=== PATIENT | male | born 1960 | race Caucasian/White ===

== ENCOUNTER 2016-06-02 12:27 | Inpatient (IN) | payer OTHER ==
[2016-06-02 12:40] VITALS: BMI 36.6
--- NOTE | 2016-06-02 13:40 | PDOC ---
History of Present Illness - General Chief Complaint: Wound Infection Stated Complaint: CELLULITIS, LEG PAIN Time Seen by Provider: 06/02/16 13:40 History Source: Patient, Old Records Exam Limitations: No Limitations - History of Present Illness Initial Comments: 06/02/16 13:40 CHIEF COMPLAINT: "Cellulitis" HISTORY OF PRESENT ILLNESS: This is a 56 year old male with no known medical problems who presents to the ED for evaluation of "cellulitis". He reports that he had a rash secondary to poison amanda several months ago. This blistered, and he scratched the area, which then became infected. He was seen at an urgent care and prescribed Clindamycin, which he took from 05/17-05/27 as prescribed. He has been attempting to treat himself by applying apple cider vinegar and baking soda, but is not improving. He presents today with worsening LE pain, redness, and swelling. He denies fevers/chills or any other systemic symptoms. He denies chest pain or shortness of breath. V/s on arrival are notable for P 113, BP 197/99, and SpO2 93% on RA. Patient refuses rectal temp. PCP is Dr. Diane REVIEW OF SYSTEMS: GENERAL/CONSTITUTIONAL: No fever or chills. No weakness. No weight change. HEAD, EYES, EARS, NOSE AND THROAT: No change in vision. No ear pain or discharge. No sore throat. CARDIOVASCULAR: No chest pain or palpitations. RESPIRATORY: No cough, wheezing, or shortness of breath. GASTROINTESTINAL: No nausea, vomiting, diarrhea or constipation. GENITOURINARY: No dysuria, frequency, or change in urination. MUSCULOSKELETAL: No joint or muscle swelling or pain. No neck or back pain. SKIN: See HPI. NEUROLOGIC: No headache, vertigo, loss of consciousness, or loss of sensation. PSYCHIATRIC: No depression or anxiety. ENDOCRINE: No increased thirst. No abnormal weight change. HEMATOLOGIC/LYMPHATIC: No anemia, easy bleeding, or history of blood clots. ALLERGIC/IMMUNOLOGIC: No hives or skin allergy. No latex allergy. PHYSICAL EXAM: GENERAL: The patient is awake, alert, and fully oriented, in no acute distress. ENT: Pupils equal, round and reactive to light, extraocular movements intact, sclera anicteric, conjunctiva clear. Neck supple. LUNGS: Clear to auscultation bilaterally. Normal excursion. No respiratory distress or use of accessory muscles. CV: Irregular rhythm, tachycardic, S1/S2, no MRG. Cap refill < 2 sec. ABDOMEN: Soft, non-distended, non-tender. EXTREMITIES: Normal range of motion. Tense LE edema bilaterally, weeping. NEUROLOGICAL: Normal speech, normal gait. CN II-XII grossly intact. PSYCH: Normal mood, normal affect. SKIN: LLE: erythema from mid foot to just below knee. 4 x 3 cm and 3 x 1.5cm left medial calf ulcerations with purulent yellow discharge. 3 x 4cm blister to left lateral calf. Large, open area to posterior calf, weeping. RLW: 5 x 6 cm ulceration to right medial calf with large amount of yellow purulent discharge. Past History - Past Medical History Allergies/Adverse Reactions: Allergies Allergy/AdvReac Type Severity Reaction Status Date / Time No Known Allergies Allergy Verified 06/02/16 12:34 Home Medications: Ambulatory Orders Colchicine [Colcrys] 0 mg PO ASDIR 06/02/16 Other medical history: DENIES. - Psycho/Social/Smoking Cessation Hx Suicidal Ideation: No Smoking History: Former smoker Have you smoked in the past 12 months: No Information on smoking cessation initiated: No *Physical Exam - Vital Signs Last Vital Signs Temp Pulse Resp BP Pulse Ox 98.2 F 113 H 17 197/99 93 L 06/02/16 12:34 06/02/16 12:34 06/02/16 12:34 06/02/16 12:34 06/02/16 12:34 Heart Score/ECG Review - Tebbetts Comment: 06/02/16 14:45 Atrial fibrillation with RVR at 117 bpm. This is a new diagnosis. With no known PMH, [id number] is 0, perhaps 1 given HTN, still no clear indication for AC at this time. Will re-asses need for rate control after IVF ED Treatment Course - LABORATORY CBC & Chemistry Diagram: 06/02/16 14:55 06/02/16 14:10 Medical Decision Making - Medical Decision Making 06/02/16 15:17 A/P: 56 year old male with purulent cellulitis of the lower extremities, failed outpatient therapy. 1. EKG: new onset atrial fibrillation 2. Obtain CXR (hypoxia) 3. Obtain sepsis labs, win-culture 4. Vancomycin/Ceftriaxone for cellulitis 5. Xrays LEs to evaluate for osteomyelitis 6. Anticipate admission 06/02/16 15:20 WBC within normal limits at 7.9 Mild thrombocytopenia at 129 Cr 2.0, no prior history renal insufficiency *DC/Admit/Observation/Transfer Diagnosis at time of Disposition: New onset atrial fibrillation, Cellulitis of both lower extremities, Acute kidney injury, Hypertension Sepsis Qualifiers: Sepsis type: sepsis due to unspecified organism Qualified Code(s): A41.9 - Sepsis, unspecified organism - Discharge Dispostion Admit: Yes - Referrals
[2016-06-02] MEDS ORDERED: SODIUM CHLORIDE 1,000 ML IV STA (14:07)
[2016-06-02] MEDS ORDERED: VANCOMYCIN 1,250 MG in DEXTROSE 5%-WATER - 250 ML IVPB ONE (14:32)
[2016-06-02] MEDS ORDERED: CEFTRIAXONE 1 GM in DEXTROSE 5%-WATER - 50 ML IVPB ONE (14:32)
[2016-06-02 14:37] LABS: INR 1.2 (0.82-1.09); PROTHROMBIN TIME (PATIENT) 13.3 SEC (9.98-11.88)
[2016-06-02 14:40] LABS: ACTIVATED PTT 30.6 SECONDS (26.9-34.4)
[2016-06-02 14:51] LABS: ALBUMIN 3.9 g/dl (3.4-5.0); BILIRUBIN,TOTAL 1.5 mg/dL (0.2-1.0); CALCIUM 9.1 mg/dL (8.5-10.1); TOT PROT 6.8 g/dl (6.4-8.2)
[2016-06-02 15:05] LABS: BASOPHIL 0.4 % (0-2.0); EOSINOPHIL 3.1 % (0-4.5); MCH 29.6 pg (25.7-33.7); MCHC 33.5 g/dl (32.0-35.9); MEAN CELL VOLUME 88.5 fl (80-96); MEAN PLT VOLUME 7.4 fl (7.5-11.1); NEUTROPHILS 77.3 % (42.8-82.8); PLATELET COUNT 129 K/MM3 (134-434); RDW 18.2 % (11.9-15.9); WHITE BLOOD COUNT 7.9 K/mm3 (4.0-10.0)
[2016-06-02] MEDS ORDERED: VANCOMYCIN 1 GRAM (PRE-DOCKED) 250 ML IVPB ONE (16:38)
[2016-06-02] MEDS ORDERED: CEFTRIAXONE 50 ML ONE (16:38)
[2016-06-02] MEDS ORDERED: ACETAMINOPHEN 325 MG TABLET (FP) PO PRN (18:38)
[2016-06-02] MEDS ORDERED: SODIUM CHLORIDE 0.45% 1,000 ML IV SCH (18:45)
--- NOTE | 2016-06-02 18:51 | HP ---
Admitting History and Physical - Admission History of Present Illness: 56 year old man who does not follow with a PCP presents complaining of B/L lower extremity swelling/pain/erythema for the past week. Pt states that he has had issues with infections in his legs previously from poison amanda. 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 He initially tried treating his legs with neosporin, apple cider vinegar , and backing soda with no improvement so he saw physician at a walk in clinic who prescribed clindamycin. Pt states that he took it for 3 days with no improvement and was convinced by his family to come to the ED. He denies fever or chills. - Smoking History Smoking history: Former smoker Have you smoked in the past 12 months: No Home Medications - Allergies Allergies/Adverse Reactions: Allergies Allergy/AdvReac Type Severity Reaction Status Date / Time No Known Allergies Allergy Verified 06/02/16 12:34 - Home Medications Home Medications: Ambulatory Orders Colchicine [Colcrys] 0 mg PO ASDIR 06/02/16 Family Disease History - Family Disease History Family History: Unable to Obtain Review of Systems - Review of Systems Constitutional: denies: No Symptoms, Chills, Diaphoresis, Fever, Lethargy, Loss of Appetite, Malaise, Night Sweats, Unintentional Wgt. Loss, Weakness, Other Eyes: denies: No Symptoms, Blind Spots, Blurred Vision, Double Vision, Eye Pain , Floaters, Photophobia, Recent Change in Vision, Other HENT: denies: No Symptoms, Difficult Swallowing, Ear Discharge, Ear Pain, Epistaxis, Gingival Bleeding, Hearing Loss, Mouth Swelling, Nasal Congestion, Ocular Prosthesis, Throat Pain, Toothache, Ringing in Ears, Other Neck: denies: No Symptoms, Decreased ROM, Lumps, Pain on Movement, Stiffness, Swollen Glands, Tenderness, Other Cardiovascular: denies: No Symptoms, Chest Pain, Edema, Palpitations, Shortness of Breath, Other Respiratory: denies: No Symptoms, Cough, Exercise Intolerance, Hemoptysis, Orthopnea, PND, Snoring, SOB, SOB on Exertion, Wheezing, Other Gastrointestinal: denies: No Symptoms, Abdominal Pain, Bloating, Constipation, Diarrhea, Dysphagia, Indigestion, Melena, Nausea, Rectal Bleeding, Vomiting, Vomiting Blood, Other Genitourinary: denies: No Symptoms, Burning, Discharge, Dysuria, Flank Pain, Frequency, Hematuria, Incontinence, Lesions, Menses, Pain, Testicular Mass, Testicular Pain, Testicular Swelling, Urgency, Vaginal Bleeding, Other Breasts: denies: No Symptoms Reported, See HPI, Breast Implants, Discharge from Nipple, Lumps, Pain, Skin Changes, Other Musculoskeletal: denies: No Symptoms, Back Pain, Crepitus, Decreased ROM, Extremity Pain, Joint Pain, Joint Swelling, Muscle Pain, Muscle Cramps, Muscle Weakness, Other Integumentary: reports: Change in Color, Erythema, Lesions, Other (swelling) Neurological: denies: No Symptoms, Change in LOC, Change in Speech, Confusion, Dizziness, Headache, Incoordination, Numbness, Parasthesia, Pre-Existing Deficit , Seizure, Syncope, Tremors, Unsteady Gait, Weakness, Other Endocrine: denies: No Symptoms, Excessive Sweating, Flushing, Increased Hunger, Increased Thirst, Intolerance to Cold, Intolerance to Heat, Unexplained Weight Gain, Unexplained Weight Loss, Other Hematology/Lymphatic: denies: No Symptoms, Easily Bruised, Excessive Bleeding, Swollen Glands, Other Psychiatric: denies: No Symptoms, Altered Sleep Pattern, Anxiety, Depression, Hallucinations, Panic, Paranoia, Suicidal, Other Physical Examination Vital Signs: Vital Signs Temperature 98.2 F 06/02/16 12:34 Pulse Rate 110 H 06/02/16 13:51 Respiratory Rate 20 06/02/16 13:51 Blood Pressure 103/71 06/02/16 13:51 O2 Sat by Pulse Oximetry (%) 93 L 06/02/16 13:51 Constitutional: Yes: Well Nourished, No Distress, Calm Eyes: Yes: WNL, Conjunctiva Clear, EOM Intact HENT: Yes: WNL, Atraumatic, Normocephalic Neck: Yes: WNL, Supple, Trachea Midline Cardiovascular: Yes: WNL, Regular Rate and Rhythm Respiratory: Yes: WNL, Regular, CTA Bilaterally Gastrointestinal: Yes: WNL, Normal Bowel Sounds Musculoskeletal: Yes: WNL Extremities: Yes: Erythema, Other (skin excoriations with granulation tissue and chronic venous stasis skin changes) Edema: No Edema: LLE: 1+, RLE: 1+ Integumentary: Yes: WNL Neurological: Yes: WNL, Alert, Oriented ...Motor Strength: WNL Psychiatric: Yes: WNL Labs: CBC, BMP 06/02/16 14:55 06/02/16 14:10 Assessment/Plan 56 year old man admitted for failed outpatient therapy for B/L lower extremity cellulitis Cellulitis -treated with vanc/ceftriaxone in ED; agree with this therapy -follow up ID consult for vancomycin approval -follow up cultures New onset Afib -start carvedilol for rate control given concurrent HTN -follow up 2D echo -follow up TSH -telemetry monitoring -follow up cardiology consult HTN -was elevated to 190's on initial presentation -came down to 100's without intervention -trend for now Acute Kidney Injury -pt was taking NSAID's daily for the past week with decreased water intake (was drinking more juices of late) -fluid challange with 1/2 NS -trend creat Visit type - Emergency Visit Emergency Visit: Yes ED Registration Date: 06/02/16 Care time: The patient presented to the Emergency Department on the above date and was hospitalized for further evaluation of their emergent condition. - New Patient This patient is new to me today: Yes Date on this admission: 06/03/16 - Critical Care Critical Care patient: No
[2016-06-02] MEDS ORDERED: VANCOMYCIN 1 GRAM (PRE-DOCKED) 250 ML IVPB SCH (21:30)
[2016-06-03] MEDS ORDERED: dilTIAZem HCL 50 MG/10 ML - 10 ML VIAL IVPUSH PRN (00:04)
[2016-06-03] MEDS ORDERED: ALPRAZolam 0.25 MG TABLET PO ONE (00:06)
[2016-06-03] MEDS: amLODIPine BESYLATE 5 MG TABLET (FP) PO SCH ×2 (00:56→09:53)
[2016-06-03] MEDS: HEPARIN NA (PORCINE) 5,000 UNITS/ML 1ML VIAL SQ SCH ×2 (00:56→06:56)
[2016-06-03 07:47] LABS: BASOPHIL 0.8 % (0-2.0); EOSINOPHIL 3.1 % (0-4.5); MCH 29.7 pg (25.7-33.7); MCHC 33.6 g/dl (32.0-35.9); MEAN CELL VOLUME 88.4 fl (80-96); MEAN PLT VOLUME 7.6 fl (7.5-11.1); NEUTROPHILS 72.4 % (42.8-82.8); PLATELET COUNT 120 K/MM3 (134-434); RDW 18.4 % (11.9-15.9); WHITE BLOOD COUNT 7.1 K/mm3 (4.0-10.0)
[2016-06-03 08:23] LABS: CALCIUM 8.8 mg/dL (8.5-10.1); MAGNESIUM 2.4 mg/dL (1.8-2.4); PHOSPHOROUS 4.1 mg/dL (2.5-4.9)
--- NOTE | 2016-06-03 08:24 | PN ---
Progress Note, Physician - Current Medication List Current Medications: Active Medications Acetaminophen (Tylenol -) 650 mg PO Q4H PRN PRN Reason: FEVER OR PAIN Acetaminophen/Codeine Phosphate (Tylenol # 3 -) 1 tab PO Q4H PRN PRN Reason: FEVER OR PAIN Amlodipine Besylate (Norvasc -) 5 mg PO DAILY [facility] Last Admin: 06/03/16 00:56 Dose: 5 mg Carvedilol (Coreg -) 6.25 mg PO BID [facility] Ceftriaxone Sodium (Rocephin 2gm Ivpb (Pre-Docked)) 2 gm IVPB DAILY [facility] Diltiazem HCl (Cardizem Injection -) 10 mg IVPUSH Q4H PRN PRN Reason: TACHYCARDIA Heparin Sodium (Porcine) (Heparin -) 5,000 unit SQ TID [facility] Last Admin: 06/03/16 06:56 Dose: 5,000 unit Vancomycin HCl (Vancomycin (Pre-Docked)) 250 mls @ 200 mls/hr IVPB Q24H [facility] - Objective Vital Signs: Vital Signs Temperature 97.4 F L 06/03/16 02:00 Pulse Rate 109 H 06/03/16 06:00 Respiratory Rate 20 06/03/16 06:00 Blood Pressure 174/111 06/03/16 06:00 O2 Sat by Pulse Oximetry (%) 93 L 06/03/16 02:38 Constitutional: Yes: Well Nourished, No Distress, Calm Eyes: Yes: WNL, Conjunctiva Clear HENT: Yes: WNL, Atraumatic, Normocephalic Neck: Yes: WNL, Supple, Trachea Midline Cardiovascular: Yes: WNL, Regular Rate and Rhythm Respiratory: Yes: WNL, Regular, CTA Bilaterally Gastrointestinal: Yes: WNL, Normal Bowel Sounds Musculoskeletal: Yes: WNL Extremities: Yes: Erythema Edema: Yes Edema: LLE: 1+, RLE: 1+ Integumentary: Yes: Venous Stasis Changes Neurological: Yes: WNL, Alert, Oriented ...Motor Strength: WNL Psychiatric: Yes: WNL Labs: CBC, BMP 06/03/16 05:50 INR, PTT INR 1.20 (0.82-1.09) H 06/02/16 14:10 Impression/Plan Impression/Plan: 56 year old man admitted for failed outpatient therapy for B/L lower extremity cellulitis Cellulitis -treated with vanc/ceftriaxone in ED; agree with this therapy -follow up ID consult for vancomycin approval -follow up cultures New onset Afib -start carvedilol for rate control given concurrent HTN -follow up 2D echo -follow up TSH -telemetry monitoring -follow up cardiology consult HTN -was elevated to 190's on initial presentation -again elevated to 200's -start carvedilol Acute Kidney Injury -pt was taking NSAID's daily for the past week with decreased water intake (was drinking more juices of late) -fluid challange with 1/2 NS -trend creat Visit type - Emergency Visit Emergency Visit: Yes ED Registration Date: 06/02/16 Care time: The patient presented to the Emergency Department on the above date and was hospitalized for further evaluation of their emergent condition. - New Patient This patient is new to me today: Yes Date on this admission: 06/03/16 - Critical Care Critical Care patient: No
--- NOTE | 2016-06-03 08:24 | CONSULT ---
Consult Consult Specialty:: cardio Referred by:: hospitalist Reason for Consultation:: hypertensive urgency - History of Present Illness Chief Complaint: leg swelling History of Present Illness: 56 year old man with on PMD f/u here with leg swelling, wounds, redness. has had leg lesions/infection in past that he self-treats at home. this time he tried same local tx's but it progressed, and developed localized lesions, redness up almost to knees so came in for tx. denies any sob or orthopnea. denies cp. denies palpitations. he denies etoh abuse--1-2 beers once on weekends, heavier years ago. no cigs or drugs no known PMH specifically denies CVA/TIA, GIB/PUD/other GI pathology FH: no known CAD - Alcohol/Substance Use Hx Alcohol Use: No - Smoking History Smoking history: Former smoker Have you smoked in the past 12 months: No Home Medications - Allergies Allergies/Adverse Reactions: Allergies Allergy/AdvReac Type Severity Reaction Status Date / Time No Known Allergies Allergy Verified 06/02/16 12:34 - Home Medications Home Medications: Ambulatory Orders Colchicine [Colcrys] 0 mg PO ASDIR 06/02/16 Family Disease History - Family Disease History Family History: Denies (no CAD) Review of Systems - Review of Systems Constitutional: denies: Chills, Fever Eyes: denies: Eye Pain HENT: denies: Nasal Congestion Neck: denies: Stiffness Cardiovascular: denies: Palpitations Respiratory: denies: Orthopnea, PND Gastrointestinal: denies: Diarrhea, Rectal Bleeding Genitourinary: denies: Burning, Hematuria Musculoskeletal: denies: Muscle Pain Integumentary: denies: Rash Neurological: denies: Numbness, Seizure, Syncope Endocrine: denies: Excessive Sweating Hematology/Lymphatic: denies: Excessive Bleeding Vital Signs: Vital Signs Temperature 97.4 F L 06/03/16 02:00 Pulse Rate 109 H 06/03/16 06:00 Respiratory Rate 20 06/03/16 06:00 Blood Pressure 174/111 06/03/16 06:00 O2 Sat by Pulse Oximetry (%) 93 L 06/03/16 02:38 Constitutional: Yes: No Distress, Obese Eyes: No: Sclera Icterus HENT: No: Nasal Congestion Neck: No: Decreased ROM Respiratory: Yes: CTA Bilaterally. No: Accessory Muscle Use, Rales, Wheezes Gastrointestinal: Yes: Normal Bowel Sounds. No: Distention, Hepatomegaly, Palpable Mass, Tenderness Cardiovascular: Yes: Pulse Irregular JVD: Yes Carotid Bruit: No PMI: Non-Displaced Heart Sounds: Yes: S1, S2. No: Gallop Murmur: No: Systolic Murmur, Diastolic Murmur Musculoskeletal: Yes: Other (No kyphosis) Extremities: No: Cold, Cyanosis Edema: Yes (nonpit pretib/erythema) Peripheral Pulses: 2+ Left Carotid, 2+ Right Carotid, 2+ Left Doralis Pedis, 2+ Right Dorsalis Pedis Integumentary: No: Jaundice Neurological: Yes: Alert, Oriented (x3) Psychiatric: No: Agitated - Other Data Labs, Other Data: CBC, BMP 06/03/16 05:50 INR, PTT INR 1.20 (0.82-1.09) H 06/02/16 14:10 Laboratory Tests 06/02/16 06/02/16 06/02/16 14:10 14:10 18:00 WBC Hgb Plt Count INR 1.20 H Sodium 146 H Potassium 4.5 Carbon Dioxide 26 BUN 36 H Creatinine 2.0 H Lactic Acid 0.937 AST 35 ALT 21 06/03/16 05:50 WBC 7.1 Hgb 11.9 Plt Count 120 L INR Sodium Potassium Carbon Dioxide BUN Creatinine Lactic Acid AST ALT ekg 06/02: afib (HR 117 bpm); nl axis/interv; no path q's; nonsp ST-T lateral leads (no old) telem: AF 100s-130s Imaging - Results Chest X-ray: Report Reviewed (enlarged heart, fluid in fissure, incr'd markings) , Image Reviewed Assessment/Plan HTN urgency: -noted to have bp up to syst 210, diast 116; -no PMD f/u, ? chronicity of hi bp in this pt -r/o renal dz contributing, incl nephrotic syndrome -carvedilol, amlodipine started here--160s/100s this am -cont same meds, observe bp trend AFib: -new dx (no prior MD f/u) -HRs mildly rapid--agree with BB; using carvedilol (better for BP) which is not great for HR control--incr to 12.5 bid -if rapid may need change amlodipine to diltiazem -CHADS-VASC 1 (hi BP), though needs A1c to r/o DM -PLTs mildly down, INR mildly up--needs further w/u -pt denies any h/o GIB or stomach ulcers/other GI pathology, H/H normal -will send stool guaiac for baseline, but for now will start UFH (reversible) and observe trend in PLTs/coags/H and H -check echo -TSH renal failure, ? chronic vs acute: -creat 2.0, no baseline -w/u per hospitalist +/- renal consult -ok for IVF for now--watch for signs of sob/hypoxia (? JVD on exam--as below) hypernatremia: -per hospitalist +/- renal consult thrombocytopenia, mild: -per hospitalist +/- heme consult coagulopathy: -INR 1.20 -low PLTs noted -denies etoh abuse -per hospitalist +/- heme consult LE edema, cellulitis: -abx per hospitalist -CXR reviewed--not convinced it shows evidence of pulm congestion -? JVD on exam, vs related to irreg carotid pulsations (afib) -BNP will not be helpful with his decr'd renal fxn -leg swelling improving with abx he says, not very edematous, no sob--defer lasix while observe creat trend
[2016-06-03] MEDS ORDERED: CARVEDILOL 6.25 MG TABLET (FP) PO SCH (08:30)
[2016-06-03] MEDS: ACETAMINOPHEN WITH CODEINE 300MG/30MG TABLET PO PRN (08:54)
--- NOTE | 2016-06-03 09:09 | PN ---
Progress Note (short form) - Note Progress Note: ID consult dictated imp/reccd purulent cellulitis- took a 10 day course of clindamycin 05/17- 05/27- finished it with some improvement then legs worsened- right leg is painful prior poison amanda venous stasis htn gill/ckd ceftaroline dopplers d/w Dr Self
[2016-06-03] MEDS ORDERED: amLODIPine BESYLATE 5 MG TABLET (FP) PO SCH (10:00)
[2016-06-03] MEDS ORDERED: CEFTAROLINE FOSAMIL ACETATE 600 MG in DEXTROSE 5%-WATER - 100 ML IVPB SCH (10:00)
[2016-06-03] MEDS ORDERED: CEFTRIAXONE 2 GM in DEXTROSE 5%-WATER - 100 ML IVPB SCH (10:00)
[2016-06-03] MEDS ORDERED: cefTRIAXone 2 GM/100 ML BAG (PRE-DOCKED) IVPB SCH (10:00)
[2016-06-03] MEDS: CEFTAROLINE FOSAMIL ACETATE 600 MG in DEXTROSE 5%-WATER - 250 ML IVPB SCH ×2 (10:38→21:50)
[2016-06-03] MEDS ORDERED: HEPARIN NA (PORCINE) 5,000 UNITS/ML 1ML VIAL IVPUSH PRN (11:05)
[2016-06-03] MEDS ORDERED: HEPARIN INFUSION - 500 ML IVPB ONE (11:31)
[2016-06-03] MEDS: HEPARIN - 25,000 UNIT in SODIUM CHLORIDE 495 ML IV SCH (11:34)
--- NOTE | 2016-06-03 15:52 | EKG ---
Test Reason : Blood Pressure : / mmHG Vent. Rate : 117 BPM Atrial Rate : 117 BPM P-R Int : 000 ms QRS Dur : 094 ms QT Int : 312 ms P-R-T Axes : 000 159 129 degrees QTc Int : 435 ms ATRIAL FIBRILLATION WITH RAPID VENTRICULAR RESPONSE RIGHT AXIS DEVIATION PULMONARY DISEASE PATTERN NONSPECIFIC T WAVE ABNORMALITY , PROBABLY DIGITALIS EFFECT ABNORMAL ECG NO PREVIOUS ECGS AVAILABLE Confirmed by ABBEY CONTRERAS MD ([id number]) on 06/03/2016 3:51:57 PM Referred By: Overread By: ABBEY CONTRERAS MD
[2016-06-03] MEDS ORDERED: VANCOMYCIN 1 GRAM (PRE-DOCKED) 250 ML IVPB SCH (17:00)
--- NOTE | 2016-06-03 21:39 | CONS ---
DATE OF CONSULTATION: DATE OF DICTATION: 06/03/2016 INFECTIOUS DISEASE CONSULTATION REQUESTING PHYSICIAN: Hospitalist service. CONSULTING PHYSICIAN: Mary Lou Eugene M.D. HISTORY OF PRESENT ILLNESS: This is a 56-year-old man who presented to the emergency room yesterday. He gives a history of having had poison amanda. 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 About 2 months ago he treated himself topically with neomycin and he had been trying to use some apple cider vinegar and baking soda to the lesions, and he presented with worsening pain and erythema especially of the left leg. He has recently completed a course of clindamycin which he took from the 8th to the 18th, which he completed. He reports some improvement with that, but no complete resolution. There is no history of any fevers or chills. He has no pets. He denies any scratches or insect bites. He states this all has been chronic and recurrent after the poison amanda episode. PAST MEDICAL HISTORY: Unremarkable. He has a history of gout, and he takes colchicine. He has no known drug allergies. FAMILY HISTORY: Noncontributory. 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 He lives with his family. He is a former smoker. There is no other illicit drug use. REVIEW OF SYSTEMS: Negative for fevers, chills, nausea, vomiting, diarrhea, or dysuria. PHYSICAL EXAMINATION: General: He is awake and alert. Vital signs: Temperature 98, pulse 109, blood pressure 169/102, respiratory rate 20, weight 185 pounds, O2 saturation is 93%. HEENT: Normocephalic. Eyes are anicteric. Neck: Supple. Lungs: Clear to auscultation. Heart: Regular rate and rhythm. Abdomen: Soft, nontender. Extremities: He has bilateral venous stasis with erythema and induration. He has some open lesions that in the emergency room were apparently draining purulent material. Currently the legs are somewhat dry. LABORATORY: Notable for a white count of 7.1, hemoglobin of 11.9, platelets of 120, INR is 1.2, BUN and creatinine are 34 and 2. Blood cultures are pending. X-rays of his feet are notable for degenerative changes, and chest x-ray reveals increased elevated right hemidiaphragm and a large heart. There is no infiltrate. IMPRESSION: 1. In summary, this is a 56-year-old man with bilateral cellulitis left greater than right with a purulent component, which has not responded well to outpatient clindamycin. Would suggest treating him with ceftaroline now which would cover him for methicillin resistant Staphylococcus aureus, Streptococcus, as well as some gram negative coverage, would culture the wound, if there is any drainage from the lesions would send a wound culture. 2. Renal insufficiency, hypertension, managed as per his primary service. If he has not had Dopplers of his legs, I would Doppler his legs as well, to rule out deep vein thrombosis. MARY LOU EUGENE M.D. [id number]
[2016-06-03] MEDS: CARVEDILOL 12.5 MG TABLET (FP) PO SCH (21:50)
[2016-06-04 08:08] LABS: EOSINOPHIL 4.2 % (0-4.5); MCH 30.2 pg (25.7-33.7); MCHC 33.8 g/dl (32.0-35.9); MEAN CELL VOLUME 89.4 fl (80-96); MEAN PLT VOLUME 7.7 fl (7.5-11.1); PLATELET COUNT 112 K/MM3 (134-434); RDW 19.2 % (11.9-15.9)
--- NOTE | 2016-06-04 08:20 | PN ---
Physical Exam: SUBJECTIVE: Patient seen and examined at bed side. reports erythema margin bellow the knee is moving down, swelling is improving. Reports pain is constant and want a percocet. denies, fevers, chills, N/v/D/ OBJECTIVE: Vital Signs Period Temp Pulse Resp BP Sys/Villarreal Pulse Ox Last 24 Hr 97.0 F-98.3 F 83-109 18-20 113-186/51-113 93-93 PHYSICAL EXAM: GENERAL: The patient is awake, alert, and fully oriented, in no acute distress. ENT: Pupils equal, round and reactive to light, extraocular movements intact, sclera anicteric, conjunctiva clear. Neck supple. LUNGS: Clear to auscultation bilaterally. Normal excursion. No respiratory distress or use of accessory muscles. CV: Irregular rhythm, tachycardic, S1/S2, no MRG. Cap refill < 2 sec. ABDOMEN: Soft, non-distended, non-tender. EXTREMITIES: Normal range of motion. Tense LE edema bilaterally, weeping. NEUROLOGICAL: Normal speech, normal gait. CN II-XII grossly intact. PSYCH: Normal mood, normal affect. SKIN: LLE: erythema clear demarcations from mid foot to just below knee decreased from yesterday. 4 x 3 cm and 3 x 1.5cm left medial calf ulcerations with purulent yellow discharge. 3 x 4cm blister to left lateral calf. Large, open area to posterior calf, weeping. RLW: 5 x 6 cm ulceration to right medial calf with large amount of yellow purulent discharge. Laboratory Results - last 24 hr 06/03/16 06/03/16 05:50 17:15 PTT (Actin FS) 51.2 H D Sodium 141 Potassium 3.6 Chloride 108 H Carbon Dioxide 28 Anion Gap 5 L BUN 34 H Creatinine 2.0 H Random Glucose 90 Calcium 8.8 Phosphorus 4.1 Magnesium 2.4 Active Medications Generic Name Dose Route Start Last Admin Trade Name Freq PRN Reason Stop Dose Admin Acetaminophen/Codeine Phosphate 1 tab 06/03/16 08:13 Tylenol # 3 - PO Q4H PRN FEVER OR PAIN Amlodipine Besylate 5 mg 06/03/16 00:15 06/03/16 09:53 Norvasc - PO 5 mg DAILY ASHLEY Administration Carvedilol 12.5 mg 06/03/16 22:00 06/03/16 21:50 Coreg - PO 12.5 mg BID ASHLEY Administration Diltiazem HCl 10 mg 06/03/16 00:04 Cardizem Injection - IVPUSH Q4H PRN TACHYCARDIA Heparin Sodium (Porcine) 1,000 unit 06/03/16 11:05 Heparin - IVPUSH PRN PRN Heparin Heparin Sodium (Porcine) 5,000 unit 06/03/16 11:05 06/03/16 11:36 Heparin - IVPUSH 5,000 unit PRN PRN Administration Heparin Ceftaroline Fosamil 600 mg/ 250 mls @ 200 mls/hr 06/03/16 10:00 06/03/16 21:50 Dextrose IVPB 200 mls/hr BID ASHLEY Administration Heparin Sodium (Porcine) 25, 500 mls @ 20 mls/hr 06/03/16 11:15 06/03/16 11:34 000 unit/ Sodium Chloride IV 20 mls/hr TITR ASHLEY Administration Protocol 1,000 UNIT/HR ASSESSMENT/PLAN: 56 year old man admitted for failed outpatient therapy for B/L lower extremity cellulitis LE Edema, acute Cellulitis, chronic venous stasis afebrile, no leukocytosis -Ceftaroline Fosamil 600 mg IVPB BID per ID day2 -No growth 24 hrs, follow up cultures -JVD on exam, vs related to irreg carotid pulsations (afib) -BNP will not be helpful with his decr'd renal fxn -defer lasix while observe creat trend: no sob, leg swelling and erythema improving with abx per patietn, not very edematous, New onset Afib -start carvedilol for rate control given concurrent HTN -2D echo tommorow -TSH wNL -telemetry monitoring -patient was started on heprin drip per Cardiology attending. (Anirudh vasc score 1, HbA1c 5.6) HTN urgency -was elevated to 190's on initial presentation -again elevated to 173/105 -r/o renal dz contributing, incl nephrotic syndrome -carvedilol, amlodipine started here--160s/100s this am -cont same meds, observe bp trend Acute Kidney Injury: need to attain Cr base line -pt was taking NSAID's daily for the past week with decreased water intake (was drinking more juices of late) -fluid challange with 1/2 NS -trend cr hypernatremia: thrombocytopenia, mild: -per hospitalist will monitor Visit type - Emergency Visit Emergency Visit: Yes ED Registration Date: 06/02/16 Care time: The patient presented to the Emergency Department on the above date and was hospitalized for further evaluation of their emergent condition. - New Patient This patient is new to me today: Yes Date on this admission: 06/02/16 - Critical Care Critical Care patient: No
[2016-06-04 08:34] LABS: LDL CHOLESTEROL (ONLY SJRH) 114 mg/dL (5-100)
[2016-06-04 09:08] LABS: CALCIUM 8.5 mg/dL (8.5-10.1); CREATININE 1.8 mg/dL (0.7-1.3)
[2016-06-04] MEDS: CARVEDILOL 12.5 MG TABLET (FP) PO SCH ×2 (09:14→22:57)
[2016-06-04] MEDS: ACETAMINOPHEN WITH CODEINE 300MG/30MG TABLET PO PRN (09:14)
[2016-06-04] MEDS: amLODIPine BESYLATE 10 MG TABLET (FP) PO SCH (09:14)
[2016-06-04 09:17] LABS: THYROID STIMULATING HORMONE 1.65 uIU/ml (0.358-3.74)
[2016-06-04] MEDS ORDERED: METOPROLOL SUCCINATE 50 MG TAB.SR.24H (FP) PO SCH (10:00)
[2016-06-04] MEDS: CEFTAROLINE FOSAMIL ACETATE 600 MG in DEXTROSE 5%-WATER - 250 ML IVPB SCH ×2 (11:04→22:58)
[2016-06-04] MEDS: HEPARIN - 25,000 UNIT in SODIUM CHLORIDE 495 ML IV SCH (11:29)
[2016-06-04] MEDS: HEPARIN NA (PORCINE) 5,000 UNITS/ML 1ML VIAL IVPUSH PRN (11:30)
[2016-06-04 11:36] LABS: CHOLESTEROL 164 mg/dL (50-200)
--- NOTE | 2016-06-04 11:43 | PN ---
Progress Note (short form) - Note Progress Note: continues to have pain in both his legs no fevers, thinks the erythema is improving Vital Signs Period Temp Pulse Resp BP Sys/Villarreal Pulse Ox Last 24 Hr 97.0 F-98.3 F 83-91 18-20 113-186/51-113 91-93 cor-[id number] lungs clear abd- soft,nt ext venous stasis, with erythema RLE greater then LLE, shallow ulcers bilaterally CBC, BMP 06/04/16 05:48 06/04/16 05:48 Microbiology 06/02/16 21:41 Wound Wound Culture - Preliminary Pending Organism 06/02/16 16:05 Blood - Peripheral Venous Blood Culture - Preliminary NO GROWTH OBTAINED AFTER 24 HOURS, INCUBATION TO CONTINUE FOR 4 DAYS. 06/02/16 14:30 Blood - Peripheral Venous Blood Culture - Preliminary NO GROWTH OBTAINED AFTER 24 HOURS, INCUBATION TO CONTINUE FOR 4 DAYS. a/p bilateral cellulitis venous stasis HTN afib gill continue ceftaroline f/u cultures
--- NOTE | 2016-06-04 11:43 | PN ---
Progress Note (short form) - Note Progress Note: s: no cp sob palps dizzy; c/o leg pain o: Vital Signs Period Temp Pulse Resp BP Sys/Villarreal Pulse Ox Last 24 Hr 97.0 F-98.3 F 83-91 18-20 113-186/51-113 91-93 Constitutional: Yes: No Distress, Obese Eyes: No: Sclera Icterus Respiratory: Yes: CTA Bilaterally. No: Accessory Muscle Use, Rales, Wheezes Cardiovascular: Yes: Pulse Irregular JVD: no Heart Sounds: Yes: S1, S2. No: Gallop Murmur: No: Systolic Murmur, Diastolic Murmur Extremities: No: Cold, Cyanosis Edema: Yes (nonpit pretib/erythema) Integumentary: No: Jaundice Neurological: Yes: Alert, Oriented (x3) Psychiatric: No: Agitated Current Medications Generic Name Dose Route Start Last Admin Trade Name Freq PRN Reason Stop Dose Admin Acetaminophen/Codeine Phosphate 1 tab 06/03/16 08:13 06/04/16 09:14 Tylenol # 3 - PO 1 tab Q4H PRN Administration FEVER OR PAIN Amlodipine Besylate 10 mg 06/04/16 10:00 06/04/16 09:14 Norvasc - PO 10 mg DAILY ASHLEY Administration Carvedilol 12.5 mg 06/03/16 22:00 06/04/16 09:14 Coreg - PO 12.5 mg BID ASHLEY Administration Diltiazem HCl 10 mg 06/03/16 00:04 Cardizem Injection - IVPUSH Q4H PRN TACHYCARDIA Heparin Sodium (Porcine) 1,000 unit 06/03/16 11:05 06/04/16 11:30 Heparin - IVPUSH 1,000 unit PRN PRN Administration Heparin Heparin Sodium (Porcine) 5,000 unit 06/03/16 11:05 06/03/16 11:36 Heparin - IVPUSH 5,000 unit PRN PRN Administration Heparin Ceftaroline Fosamil 600 mg/ 250 mls @ 200 mls/hr 06/03/16 10:00 06/04/16 11:04 Dextrose IVPB 200 mls/hr BID ASHLEY Administration Heparin Sodium (Porcine) 25, 500 mls @ 20 mls/hr 06/03/16 11:15 06/04/16 11:29 000 unit/ Sodium Chloride IV 22 mls/hr TITR ASHLEY Administration Protocol 1,000 UNIT/HR CBC, BMP 06/04/16 05:48 06/04/16 05:48 ekg 06/02: afib (HR 117 bpm); nl axis/interv; no path q's; nonsp ST-T lateral leads (no old) telem: AFib, rate controlled Imaging - Results Chest X-ray: Report Reviewed (enlarged heart, fluid in fissure, incr'd markings) , Image Reviewed Assessment/Plan HTN urgency: -noted to have bp up to syst 210, diast 116; -no PMD f/u, ? chronicity of hi bp in this pt -r/o renal dz contributing, incl nephrotic syndrome -carvedilol, amlodipine started here--160s/100s, bp still high today, will increase norvasc to 10 mg AFib: -new dx (no prior MD f/u) -HR controlled on coreg so far, cont tele for now -CHADS-VASC 1 (htn), so has indication for AC, currently on hep gtt, can change to NOAC or coumadin -tsh wnl -check echo renal failure, ? chronic vs acute: -creat near 2, no baseline -w/u per hospitalist +/- renal consult LE edema, cellulitis: -abx per hospitalist -CXR reviewed--not convinced it shows evidence of pulm congestion -BNP will not be helpful with his decr'd renal fxn -leg swelling improving with abx he says, not very edematous, no sob--defer lasix while observe creat trend
[2016-06-04 12:25] LABS: INR 1.25 (0.82-1.09); PROTHROMBIN TIME (PATIENT) 13.8 SEC (9.98-11.88)
[2016-06-04] MEDS ORDERED: PT OWN MED DRAWER 7, Y5N ONE (22:26)
--- NOTE | 2016-06-05 07:36 | PN ---
Physical Exam: SUBJECTIVE: Patient seen and examined at bed side. patient reports swelling, pain, erythema, ulcers has been improving and attributes it to antibiotics. Reports pain is constant and want a percocet and understands he will not be given percocets on discharge. . Denies, fevers, chills, N/V/D/C, CP, palpitations, SOB. OBJECTIVE: Vital Signs Period Temp Pulse Resp BP Sys/Villarreal Pulse Ox Last 24 Hr 97.3 F-98.3 F 74-91 18-20 130-173/72-105 90-91 PHYSICAL EXAM: GENERAL: The patient is awake, alert, and fully oriented, in no acute distress. sitting comfortably. ENT: Pupils equal, round and reactive to light, extraocular movements intact, sclera anicteric, conjunctiva clear. Neck supple. LUNGS: Clear to auscultation bilaterally. Normal excursion. No respiratory distress or use of accessory muscles. CV: Irregular rhythm, tachycardic, S1/S2, no MRG. Cap refill < 2 sec. ABDOMEN: Soft, non-distended, non-tender. EXTREMITIES: Normal range of motion. Tense LE edema bilaterally, weeping. NEUROLOGICAL: Normal speech, normal gait. CN II-XII grossly intact. PSYCH: Normal mood, normal affect. SKIN: LLE: multiple calf ulcers,weeping, erythema clear demarcations from mid foot to just below knee again decreased from yesterday. 4 x 3 cm and 3 x 1.5cm left medial calf ulcerations with purulent yellow discharge. 3 x 4cm blister to left lateral calf. Large, open area to posterior calf, weeping. RLW: 5 x 6 cm ulceration to right medial calf with large amount of yellow purulent discharge.1+ pitting edema, pulses weak but intact B/L Laboratory Results - last 24 hr 06/04/16 06/04/16 06/04/16 05:48 05:48 05:48 WBC 7.0 RBC 3.91 L Hgb 11.8 Hct 34.9 L MCV 89.4 MCHC 33.8 RDW 19.2 H Plt Count 112 L MPV 7.7 Neutrophils % 73.0 Lymphocytes % 11.9 Monocytes % 9.9 Eosinophils % 4.2 Basophils % 1.0 INR PTT (Actin FS) Sodium 145 Potassium 3.6 Chloride 107 Carbon Dioxide 30 Anion Gap 8 BUN 28 H Creatinine 1.8 H Random Glucose 96 Hemoglobin A1c % Calcium 8.5 Triglycerides 70 Cholesterol 164 Total LDL Cholesterol Cancelled HDL Cholesterol 53 TSH 1.65 06/04/16 06/04/16 06/04/16 05:48 09:30 10:00 WBC RBC Hgb Hct MCV MCHC RDW Plt Count MPV Neutrophils % Lymphocytes % Monocytes % Eosinophils % Basophils % INR 1.25 H PTT (Actin FS) 45.2 H Sodium Potassium Chloride Carbon Dioxide Anion Gap BUN Creatinine Random Glucose Hemoglobin A1c % 5.2 Calcium Triglycerides Cholesterol Total LDL Cholesterol HDL Cholesterol TSH 06/04/16 18:00 WBC RBC Hgb Hct MCV MCHC RDW Plt Count MPV Neutrophils % Lymphocytes % Monocytes % Eosinophils % Basophils % INR PTT (Actin FS) 42.6 H Sodium Potassium Chloride Carbon Dioxide Anion Gap BUN Creatinine Random Glucose Hemoglobin A1c % Calcium Triglycerides Cholesterol Total LDL Cholesterol HDL Cholesterol TSH Active Medications Generic Name Dose Route Start Last Admin Trade Name Freq PRN Reason Stop Dose Admin Acetaminophen/Codeine Phosphate 1 tab 06/03/16 08:13 06/04/16 09:14 Tylenol # 3 - PO 1 tab Q4H PRN Administration FEVER OR PAIN Amlodipine Besylate 10 mg 06/04/16 10:00 06/04/16 09:14 Norvasc - PO 10 mg DAILY ASHLEY Administration Carvedilol 12.5 mg 06/03/16 22:00 06/04/16 22:57 Coreg - PO 12.5 mg BID ASHLEY Administration Diltiazem HCl 10 mg 06/03/16 00:04 Cardizem Injection - IVPUSH Q4H PRN TACHYCARDIA Heparin Sodium (Porcine) 1,000 unit 06/03/16 11:05 06/04/16 11:30 Heparin - IVPUSH 1,000 unit PRN PRN Administration Heparin Heparin Sodium (Porcine) 5,000 unit 06/03/16 11:05 06/03/16 11:36 Heparin - IVPUSH 5,000 unit PRN PRN Administration Heparin Ceftaroline Fosamil 600 mg/ 250 mls @ 200 mls/hr 06/03/16 10:00 06/04/16 22:58 Dextrose IVPB 200 mls/hr BID ASHLEY Administration Heparin Sodium (Porcine) 25, 500 mls @ 20 mls/hr 06/03/16 11:15 12/26/16 21:00 000 unit/ Sodium Chloride IV 1,200 unit/hr TITR ASHLEY Titration Protocol 1,000 UNIT/HR ekg 06/02: afib (HR 117 bpm); nl axis/interv; no path q's; nonsp ST-T lateral leads (no old) Telem: AFib, rate controlled Chest X-ray: Report Reviewed (enlarged heart, fluid in fissure, incr'd markings) , Image Reviewed ASSESSMENT/PLAN: 56 year old man admitted for failed outpatient therapy for B/L lower extremity cellulitis LE Edema, acute Cellulitis, super imposed on chronic venous stasis afebrile, no leukocytosis,wound Cx + with pending organism -Ceftaroline Fosamil 600 mg IVPB BID per ID day 4. -No growth 24 hrs, follow up cultures -JVD on exam, vs related to irreg carotid pulsations (afib) -BNP will not be helpful with his decr'd renal fxn -defer lasix while observe creat trend: no sob, leg swelling and erythema improving with abx per patient, not very edematous, -will start percocets prn for pain control. -vascular evaluation as outpatient. -await final c&s New onset Afib: rate controlled on carvedilol -2D echo reading pending -TSH wNL -telemetry monitoring -patient was started on heprin drip per Cardiology attending. (Anirudh vasc score 1, HbA1c 5.6). discussed with patient risk and benfits of treatment options. patient needs time to think and make an informed decision on AC. HTN urgency -was elevated to 190's on initial presentation -again elevated to 173/105 -r/o renal dz contributing, incl nephrotic syndrome -carvedilol, amlodipine started here--160s/100s this am -cont same meds, observe bp trend Acute Kidney Injury: need to attain Cr base line -pt was taking NSAID's daily for the past week with decreased water intake (was drinking more juices of late) -fluid challange with 1/2 NS -trend cr renal failure, ? chronic vs acute: -creat near 2, no baseline: call PCP to acquire about base line kidney function -w/u per hospitalist +/- renal consult. No significant improvement IVF. thrombocytopenia, mild: -per hospitalist will monitor FEN monitor and replenish electrolyte as needed oral hydration sodium controlled diet Visit type - Emergency Visit Emergency Visit: Yes ED Registration Date: 06/02/16 Care time: The patient presented to the Emergency Department on the above date and was hospitalized for further evaluation of their emergent condition. - New Patient This patient is new to me today: No - Critical Care Critical Care patient: No
[2016-06-05 07:42] LABS: MCH 29.7 pg (25.7-33.7); MCHC 33.2 g/dl (32.0-35.9); MEAN CELL VOLUME 89.5 fl (80-96); MEAN PLT VOLUME 7.8 fl (7.5-11.1); PLATELET COUNT 112 K/MM3 (134-434); WHITE BLOOD COUNT 7.2 K/mm3 (4.0-10.0)
[2016-06-05] MEDS ORDERED: PT OWN MED DRAWER 7, Y5N ONE ×2 (08:39→20:06)
[2016-06-05] MEDS: amLODIPine BESYLATE 10 MG TABLET (FP) PO SCH (09:42)
[2016-06-05] MEDS: CARVEDILOL 12.5 MG TABLET (FP) PO SCH ×2 (09:42→21:51)
[2016-06-05] MEDS: HEPARIN NA (PORCINE) 5,000 UNITS/ML 1ML VIAL IVPUSH PRN (09:53)
[2016-06-05] MEDS: CEFTAROLINE FOSAMIL ACETATE 600 MG in DEXTROSE 5%-WATER - 250 ML IVPB SCH (09:53)
[2016-06-05] MEDS: HEPARIN - 25,000 UNIT in SODIUM CHLORIDE 495 ML IV SCH ×2 (09:54→14:57)
[2016-06-05 10:42] LABS: CALCIUM 8.8 mg/dL (8.5-10.1); CREATININE 2.2 mg/dL (0.7-1.3)
--- NOTE | 2016-06-05 12:29 | PN ---
Progress Note, Physician History of Present Illness: Awake, alert No c/o leg pain reports bilateral leg swelling and erythema improved no fever/ chills - Current Medication List Current Medications: Active Medications Acetaminophen/Codeine Phosphate (Tylenol # 3 -) 1 tab PO Q4H PRN PRN Reason: FEVER OR PAIN Last Admin: 06/04/16 09:14 Dose: 1 tab Amlodipine Besylate (Norvasc -) 10 mg PO DAILY ASHLEY Last Admin: 06/05/16 09:42 Dose: 10 mg Carvedilol (Coreg -) 12.5 mg PO BID ASHLEY Last Admin: 06/05/16 09:42 Dose: 12.5 mg Diltiazem HCl (Cardizem Injection -) 10 mg IVPUSH Q4H PRN PRN Reason: TACHYCARDIA Heparin Sodium (Porcine) (Heparin -) 1,000 unit IVPUSH PRN PRN PRN Reason: Heparin Last Admin: 06/05/16 09:53 Dose: 1,000 unit Heparin Sodium (Porcine) (Heparin -) 5,000 unit IVPUSH PRN PRN PRN Reason: Heparin Last Admin: 06/03/16 11:36 Dose: 5,000 unit Ceftaroline Fosamil 600 mg/ (Dextrose) 250 mls @ 200 mls/hr IVPB BID ASHLEY Last Admin: 06/05/16 09:53 Dose: 200 mls/hr Heparin Sodium (Porcine) 25, (000 unit/ Sodium Chloride) 500 mls @ 20 mls/hr IV TITR ASHLEY; 1,000 UNIT/HR PRN Reason: Protocol Last Admin: 06/05/16 09:54 Dose: 26 mls/hr - Objective Vital Signs: Vital Signs Temperature 97.3 F L 06/05/16 08:05 Pulse Rate 59 L 06/05/16 08:05 Respiratory Rate 20 06/05/16 08:09 Blood Pressure 152/76 06/05/16 08:05 O2 Sat by Pulse Oximetry (%) 90 L 06/04/16 21:00 Constitutional: Yes: No Distress Eyes: Yes: Conjunctiva Clear Cardiovascular: Yes: Regular Rate and Rhythm, S1, S2 Respiratory: Yes: CTA Bilaterally Gastrointestinal: Yes: Normal Bowel Sounds, Soft. No: Tenderness Extremities: Yes: Other (+ LE edema , erythema, superficial ulcers) Labs: CBC, BMP 06/05/16 05:35 06/05/16 09:30 INR, PTT INR 1.25 (0.82-1.09) H 06/04/16 09:30 Assessment/Plan Bilateral LE cellulitis Wound c/s mixed Substitute unasyn Local wound care
--- NOTE | 2016-06-05 13:19 | PN ---
Progress Note (short form) - Note Progress Note: CC: afib s: no cp sob palps dizzy; c/o leg pain o: Current Medications Acetaminophen/Codeine Phosphate (Tylenol # 3 -) 1 tab PO Q4H PRN PRN Reason: FEVER OR PAIN Last Admin: 06/04/16 09:14 Dose: 1 tab Amlodipine Besylate (Norvasc -) 10 mg PO DAILY [facility] Last Admin: 06/05/16 09:42 Dose: 10 mg Carvedilol (Coreg -) 12.5 mg PO BID [facility] Last Admin: 06/05/16 09:42 Dose: 12.5 mg Diltiazem HCl (Cardizem Injection -) 10 mg IVPUSH Q4H PRN PRN Reason: TACHYCARDIA Heparin Sodium (Porcine) (Heparin -) 1,000 unit IVPUSH PRN PRN PRN Reason: Heparin Last Admin: 06/05/16 09:53 Dose: 1,000 unit Heparin Sodium (Porcine) (Heparin -) 5,000 unit IVPUSH PRN PRN PRN Reason: Heparin Last Admin: 06/03/16 11:36 Dose: 5,000 unit Heparin Sodium (Porcine) 25, (000 unit/ Sodium Chloride) 500 mls @ 20 mls/hr IV TITR ASHLEY; 1,000 UNIT/HR PRN Reason: Protocol Last Admin: 06/05/16 09:54 Dose: 26 mls/hr Ampicillin Sodium/Sulbactam (Sodium 1.5 gm/ Sodium Chloride) 100 mls @ 200 mls/ hr IVPB Q6H-IV ASHLEY Vital Signs - 24 hr 06/04/16 06/04/16 06/04/16 17:00 21:00 22:00 Temperature 97.8 F 98.3 F Pulse Rate 83 80 Respiratory 18 20 20 Rate Blood Pressure 157/82 163/105 O2 Sat by Pulse 90 L Oximetry (%) 06/05/16 06/05/16 06/05/16 02:36 06:00 08:05 Temperature 98.2 F 97.3 F L 97.3 F L Pulse Rate 81 74 59 L Respiratory 19 20 20 Rate Blood Pressure 130/87 142/72 152/76 O2 Sat by Pulse Oximetry (%) 06/05/16 08:09 Temperature Pulse Rate Respiratory 20 Rate Blood Pressure O2 Sat by Pulse Oximetry (%) Intake & Output 06/03/16 06/04/16 06/05/16 06/06/16 07:59 07:59 07:59 07:59 Intake Total 240 1190 510 350 Balance 240 1190 510 350 Weight 270 lb 285 lb 9.6 oz Constitutional: Yes: No Distress, Obese Eyes: No: Sclera Icterus Respiratory: Yes: CTA Bilaterally. No: Accessory Muscle Use, Rales, Wheezes Cardiovascular: Yes: Pulse Irregular JVD: no Heart Sounds: Yes: S1, S2. No: Gallop Murmur: No: Systolic Murmur, Diastolic Murmur Extremities: No: Cold, Cyanosis Edema: Yes (nonpit pretib/erythema), trace-1+ edema of pannus. Integumentary: No: Jaundice Neurological: Yes: Alert, Oriented (x3) Psychiatric: No: Agitated CBC, BMP 06/05/16 05:35 06/05/16 09:30 Laboratory Tests 06/05/16 05:35 PTT (Actin FS) 49.4 H ekg 06/02: afib (HR 117 bpm); nl axis/interv; no path q's; nonsp ST-T lateral leads (no old) telem: AFib, rate controlled (slow ventricular conduction), no sig pauses. Imaging - Results Chest X-ray: Report Reviewed (enlarged heart, fluid in fissure, incr'd markings) , Image Reviewed Assessment/Plan HTN urgency: -noted to have bp up to syst 210, diast 116; -no PMD f/u, ? chronicity of hi bp in this pt -r/o renal dz contributing, incl nephrotic syndrome -carvedilol, amlodipine started here--160s/100s, Would benefit from diuretic as part of anti-hypertensive regimen, but reluctant to add on right now without knowing which direction renal function is going. consider diuretic vs. alternate anti-hypertensive tomorrow, if bp remains elevated. (Also, may need to wean carvedilol if he remains bradycardic). Would benefit from outpatient sleep study evaluation. AFib: -new dx (no prior MD f/u) -HR controlled on coreg so far, cont tele for now -CHADS-VASC 1 (htn), so has indication for AC, currently on hep gtt. Would recommend coumadin over NOAC b/c of renal function and BMI. If patient thought to be poor candidate for adherence to coumadin regimen, can consider apixaban. -tsh wnl -check echo. - showing signs of right sided congestion with LE edema and edema of pannus. ? trial of iv lasix, or oral torsemide if repeat standing weight is increasing and creatinine remains stable. renal failure, ? chronic vs acute: - h/o recent heavy nsaid use. -creat near 2, no baseline -w/u per hospitalist +/- renal consult. No significant improvement IVF. LE edema, cellulitis: -abx per hospitalist -CXR reviewed -BNP will not be helpful with his decr'd renal fxn -leg swelling improving with abx he says, not very edematous, no sob-
[2016-06-05] MEDS: AMPICILLIN NA/SULBACTAM NA 1.5 GM in SODIUM CHLORIDE 100 ML IVPB SCH ×2 (13:43→20:07)
[2016-06-05] MEDS ORDERED: oxyCODONE HCL 5 MG TABLET PO PRN (14:11)
[2016-06-05] MEDS ORDERED: DOCUSATE SODIUM 100 MG CAPSULE (FP) PO PRN (14:11)
--- NOTE | 2016-06-05 14:30 | PN ---
Teaching Attending Note Name of Resident: Dez Shah ATTENDING PHYSICIAN STATEMENT I saw and evaluated the patient. I reviewed the resident's note and discussed the case with the resident. I agree with the resident's findings and plan as documented. SUBJECTIVE:c/o pain in his legs that are not controlled with medications. states he had similar episode 4 years ago after contact with poison aamnda. denies CP, SOB, fever, chills, N/V/C/D. no ulcers on malleolus. no pain on walking up hill OBJECTIVE: Last Vital Signs Temp Pulse Resp BP Pulse Ox 97.3 F L 59 L 20 152/76 90 L 06/05/16 08:05 06/05/16 08:05 06/05/16 08:09 06/05/16 08:05 06/04/16 21:00 General NAD Extremities multiple calf ulcers B/L LE at various stages of healing. good granulation tissue, borders are clean. 1+ pitting edema, erythema from below the knee B/L. pulses weak but intact B/L ASSESSMENT AND PLAN: 56yo M with PMH HTN presented to the ER and was admitted for further evaluation of their emergent condition 1. B/L LE cellulitis with multiple ulcers- improved per pt. wound Cx + with pending organism. on Ceftaroline day 4. ID on board. will start percocets prn for pain control. explained to pt will not receive prescription as outpatient. verbalizes acknowledgement. will recommend vascular evaluation as outpatient. await final c&s 2. new onset afib- rate controlled on coreg. [id number] 1, cardiology recommending full anticoagulation. d/w pt risks/benefits of NOAC vs coumadin. would like to think about which he rather start. on heparin ggt. echo pending 3. TANA- unknown baseline. call PMD for baseline. check urine studies. U\s kidneys. avoid nephrotoxic agents 4. DVT ppx- on hep ggt
[2016-06-05] MEDS: oxyCODONE HCL 5 MG TABLET PO PRN ×2 (15:00→21:00)
[2016-06-06] MEDS: AMPICILLIN NA/SULBACTAM NA 1.5 GM in SODIUM CHLORIDE 100 ML IVPB SCH ×2 (02:11→09:09)
[2016-06-06] MEDS: oxyCODONE HCL 5 MG TABLET PO PRN ×4 (02:55→21:30)
--- NOTE | 2016-06-06 07:25 | PN ---
Physical Exam: SUBJECTIVE: Patient seen and examined at bed side. patient reports swelling, pain, erythema, ulcers has been improving and attributes it to antibiotics. patient reports feeling much better and pain decreased with pain control Denies, fevers, chills, N/V/D/C, CP, palpitations, SOB. OBJECTIVE: Vital Signs Period Temp Pulse Resp BP Sys/Villarreal Pulse Ox Last 24 Hr 97.3 F-98.2 F 54-92 20-20 133-158/76-98 GENERAL: The patient is awake, alert, and fully oriented, in no acute distress. sitting comfortably. ENT: Pupils equal, round and reactive to light, extraocular movements intact, sclera anicteric, conjunctiva clear. Neck supple. LUNGS: Clear to auscultation bilaterally. Normal excursion. No respiratory distress or use of accessory muscles. CV: Irregular rhythm, tachycardic, S1/S2, no MRG. Cap refill < 2 sec. ABDOMEN: Soft, non-distended, non-tender. EXTREMITIES: Normal range of motion. Tense LE edema bilaterally, weeping. NEUROLOGICAL: Normal speech, normal gait. CN II-XII grossly intact. PSYCH: Normal mood, normal affect. SKIN: LLE: multiple calf ulcers,weeping, erythema clear demarcations from mid foot to just below knee again decreased form yesterday more anterior erythema of legs. 4 x 3 cm and 3 x 1.5cm left medial calf ulcerations with purulent yellow discharge. 3 x 4cm blister to left lateral calf. Large, open area to posterior calf, weeping. RLW: 5 x 6 cm ulceration to right medial calf with large amount of yellow purulent discharge.1+ pitting edema, pulses weak but intact B/L Laboratory Results - last 24 hr 06/05/16 06/05/16 06/05/16 05:35 05:35 09:30 WBC 7.2 RBC 3.80 L Hgb 11.3 L Hct 34.0 L MCV 89.5 MCHC 33.2 RDW 19.0 H Plt Count 112 L MPV 7.8 PTT (Actin FS) 49.4 H Sodium 145 Potassium 3.8 Chloride 107 Carbon Dioxide 30 Anion Gap 8 BUN 31 H Creatinine 2.2 H D Random Glucose 85 Calcium 8.8 Urine Creatinine 06/05/16 06/05/16 16:00 19:30 WBC RBC Hgb Hct MCV MCHC RDW Plt Count MPV PTT (Actin FS) 61.8 H Sodium Potassium Chloride Carbon Dioxide Anion Gap BUN Creatinine Random Glucose Calcium Urine Creatinine 273.0 Active Medications Generic Name Dose Route Start Last Admin Trade Name Freq PRN Reason Stop Dose Admin Amlodipine Besylate 10 mg 06/04/16 10:00 06/05/16 09:42 Norvasc - PO 10 mg DAILY ASHLEY Administration Carvedilol 12.5 mg 06/03/16 22:00 06/05/16 21:51 Coreg - PO 12.5 mg BID ASHLEY Administration Diltiazem HCl 10 mg 06/03/16 00:04 Cardizem Injection - IVPUSH Q4H PRN TACHYCARDIA Docusate Sodium 100 mg 06/05/16 14:11 Colace - PO BID PRN CONSTIPATION Heparin Sodium (Porcine) 1,000 unit 06/03/16 11:05 06/05/16 09:53 Heparin - IVPUSH 1,000 unit PRN PRN Administration Heparin Heparin Sodium (Porcine) 5,000 unit 06/03/16 11:05 06/03/16 11:36 Heparin - IVPUSH 5,000 unit PRN PRN Administration Heparin Heparin Sodium (Porcine) 25, 500 mls @ 20 mls/hr 06/03/16 11:15 06/05/16 14:57 000 unit/ Sodium Chloride IV Not Given T[facility]R [facility] Protocol 1,000 UNIT/HR Ampicillin Sodium/Sulbactam 100 mls @ 200 mls/hr 06/05/16 13:30 06/06/16 02:11 Sodium 1.5 gm/ Sodium Chloride IVPB 200 mls/hr Q6H-IV ASHLEY Administration Oxycodone HCl 5 mg 06/05/16 14:43 06/06/16 02:55 Roxicodone - PO 5 mg Q6H PRN Administration PAIN 2. new onset afib- rate controlled on coreg. [id number] 1, cardiology recommending full anticoagulation. d/w pt risks/benefits of NOAC vs coumadin. pt wants to continue to think about options. received 4 days of ceftaroline. Abx switched to Unasyn by ID. c&s reported as win sensitive. will d/w ID about duration of IV abx and when can be switched to po and for duration. ASSESSMENT/PLAN: 56 year old man admitted for failed outpatient therapy for B/L lower extremity cellulitis LE Edema, acute Cellulitis, super imposed on chronic venous stasis afebrile, clinically improved. -recieved Ceftaroline Fosamil 600 mg IVPB BID per ID day 4. -switched to Unasyn per ID attending, awaiting C&S -will discussed with ID duration of IV antibiotics and when can be switched to PO. -will recommend vascular evaluation as outpatient. await final c&s -JVD on exam, vs related to irreg carotid pulsations (afib) -BNP will not be helpful with his decr'd renal fxn -defer lasix while observe creat trend: no sob, leg swelling and erythema improving with abx per patient, not very edematous, -will start percocets prn for pain control. -vascular evaluation as outpatient. -await final c&s New onset Afib: rate controlled on carvedilol -2D echo reading pending -TSH wNL -telemetry monitoring -patient was started on heprin drip per Cardiology attending. (Anirudh vasc score 1, HbA1c 5.6). discussed with patient risk and benfits of treatment options. patient needs time to think and make an informed decision on AC. believe pt would have poor compliance with diet and follow up on coumadin. will have dietary speak with patient about dietary compliance. would probably be better on NOAC. HTN urgency -was elevated to 190's on initial presentation -again elevated to 173/105 -r/o renal dz contributing, incl nephrotic syndrome -carvedilol, amlodipine started here--160s/100s this am -cont same meds, observe bp trend Acute Kidney Injury: unknown baseline. as per pt has not had blood work for several years. likely multifactorial from heavy NSAID use, however FeNa <1 -pt was taking NSAID's daily for the past week with decreased water intake (was drinking more juices of late) -trend cr -creat near 2, no baseline: call PCP to acquire about base line kidney function -w/u per hospitalist +/- renal consult. No significant improvement IVF. -will give low dose IVF. -only received 1L NS on day of admission. -check UA to check for protein. -u/s kidneys. -avoid NSAID and nephrotoxic agents -check urine studies. thrombocytopenia, mild: -per hospitalist will monitor FEN monitor and replenish electrolyte as needed oral hydration sodium controlled diet Visit type - Emergency Visit Emergency Visit: Yes ED Registration Date: 06/02/16 Care time: The patient presented to the Emergency Department on the above date and was hospitalized for further evaluation of their emergent condition. - New Patient This patient is new to me today: No - Critical Care Critical Care patient: No
[2016-06-06 07:56] LABS: MCHC 33.4 g/dl (32.0-35.9); MEAN CELL VOLUME 89.9 fl (80-96); MEAN PLT VOLUME 7.5 fl (7.5-11.1); PLATELET COUNT 112 K/MM3 (134-434); RDW 18.6 % (11.9-15.9); WHITE BLOOD COUNT 6.7 K/mm3 (4.0-10.0)
[2016-06-06] MEDS ORDERED: PT OWN MED DRAWER 7, Y5N ONE (08:43)
[2016-06-06] MEDS: amLODIPine BESYLATE 10 MG TABLET (FP) PO SCH (09:09)
[2016-06-06] MEDS: CARVEDILOL 12.5 MG TABLET (FP) PO SCH ×2 (09:09→21:30)
[2016-06-06 09:36] LABS: CALCIUM 8.8 mg/dL (8.5-10.1); CREATININE 2.2 mg/dL (0.7-1.3)
--- NOTE | 2016-06-06 10:58 | PN ---
Progress Note (short form) - Note Progress Note: s: no cp sob palps dizzy; leg pain and le edema better o: Vital Signs Period Temp Pulse Resp BP Sys/Villarreal Pulse Ox Last 24 Hr 97.8 F-98.2 F 54-92 20-20 133-158/78-98 Constitutional: Yes: No Distress, Obese Eyes: No: Sclera Icterus Respiratory: Yes: CTA Bilaterally. No: Accessory Muscle Use, Rales, Wheezes Cardiovascular: Yes: Pulse Irregular JVD: no Heart Sounds: Yes: S1, S2. No: Gallop Murmur: No: Systolic Murmur, Diastolic Murmur Extremities: No: Cold, Cyanosis Edema: Yes (nonpit pretib/erythema) Integumentary: No: Jaundice Neurological: Yes: Alert, Oriented (x3) Psychiatric: No: Agitated Current Medications Generic Name Dose Route Start Last Admin Trade Name Freq PRN Reason Stop Dose Admin Amlodipine Besylate 10 mg 06/04/16 10:00 06/06/16 09:09 Norvasc - PO 10 mg DAILY ASHLEY Administration Carvedilol 12.5 mg 06/03/16 22:00 06/06/16 09:09 Coreg - PO 12.5 mg BID ASHLEY Administration Docusate Sodium 100 mg 06/05/16 14:11 Colace - PO BID PRN CONSTIPATION Heparin Sodium (Porcine) 1,000 unit 06/03/16 11:05 06/05/16 09:53 Heparin - IVPUSH 1,000 unit PRN PRN Administration Heparin Heparin Sodium (Porcine) 5,000 unit 06/03/16 11:05 06/03/16 11:36 Heparin - IVPUSH 5,000 unit PRN PRN Administration Heparin Heparin Sodium (Porcine) 25, 500 mls @ 20 mls/hr 06/03/16 11:15 06/05/16 14:57 000 unit/ Sodium Chloride IV Not Given TITR ASHLEY Protocol 1,000 UNIT/HR Ampicillin Sodium/Sulbactam 100 mls @ 200 mls/hr 06/05/16 13:30 06/06/16 09:09 Sodium 1.5 gm/ Sodium Chloride IVPB 200 mls/hr Q6H-IV ASHLEY Administration Oxycodone HCl 5 mg 06/05/16 14:43 06/06/16 09:16 Roxicodone - PO 5 mg Q6H PRN Administration PAIN CBC, BMP 06/06/16 05:35 06/06/16 05:30 ekg 06/02: afib (HR 117 bpm); nl axis/interv; no path q's; nonsp ST-T lateral leads (no old) ekg 06/05/16: afib, rate controlled, nl qtc, no ischemic changes telem: AFib, rate controlled, no significant bradycardia or pauses echo 05/2016: nl lv/rv, mild-mod mr, mod tr, rvsp 50-60, trivial pericardial eff Assessment/Plan HTN urgency: -noted to have bp up to syst 210, diast 116; -no PMD f/u, ? chronicity of hi bp in this pt -r/o renal dz contributing, incl nephrotic syndrome -carvedilol, amlodipine started here with improved bp. Would benefit from outpatient sleep study evaluation. AFib: -new dx (no prior MD f/u) -HR controlled on coreg -CHADS-VASC 1 (htn), so has indication for AC, currently on hep gtt. Can start coumadin or noac. -tsh wnl renal failure, ? chronic vs acute: - h/o recent heavy nsaid use. -creat near 2, no baseline, has been stable here -w/u per hospitalist +/- renal consult. No significant improvement with IVF. LE edema, cellulitis: -abx per hospitalist -leg swelling improving with abx, not very edematous, no sob or signs of chf. can hold off on diuretic for now and monitor for any clinical signs of chf
--- NOTE | 2016-06-06 11:24 | PN ---
Teaching Attending Note Name of Resident: Dez Shah ATTENDING PHYSICIAN STATEMENT I saw and evaluated the patient. I reviewed the resident's note and discussed the case with the resident. I agree with the resident's findings and plan as documented. SUBJECTIVE:states swelling and pain in legs significantly improved. admits to taking 8-10 of Ibuprofen daily for over a week prior to admission. has not seen PMD in many years and only goes to urgent care centers as needed when he needs a doctor. denies CP, SOB,fever, chills, palpitations. OBJECTIVE: Last Vital Signs Temp Pulse Resp BP Pulse Ox 98.0 F 73 20 143/85 90 L 06/06/16 08:16 06/06/16 08:16 06/06/16 08:21 06/06/16 08:16 06/04/16 21:00 General NAD Lungs CTA B/L no wheezing/rales/rhonchi Extremities erythema has decreased on B/L LE. multiple calf ulcers B/L LE at various stages of healing. good granulation tissue, borders are clean. 1+ pitting edema, erythema from below the knee B/L. pulses weak but intact B/L Microbiology 06/02/16 21:41 Gram Stain - Final Wound Wound Culture - Preliminary Group D Strep Or Entero Coccus Proteus Vulgaris 06/02/16 16:05 Blood Culture - Preliminary Blood - Peripheral Venous NO GROWTH OBTAINED AFTER 72 HOURS, INCUBATION TO CONTINUE FOR 2 DAYS. 06/02/16 14:30 Blood Culture - Preliminary Blood - Peripheral Venous NO GROWTH OBTAINED AFTER 72 HOURS, INCUBATION TO CONTINUE FOR 2 DAYS. ASSESSMENT AND PLAN: 56yo M with PMH HTN presented to the ER and was admitted for further evaluation of their emergent condition 1. B/L LE cellulitis with multiple ulcers-clinically improved. received 4 days of ceftaroline. Abx switched to Unasyn by ID. c&s reported as win sensitive. will d/w ID about duration of IV abx and when can be switched to po and for duration. will recommend vascular evaluation as outpatient. await final c&s 2. new onset afib- rate controlled on coreg. [id number] 1, cardiology recommending full anticoagulation. d/w pt risks/benefits of NOAC vs coumadin. pt wants to continue to think about options. believe pt would have poor compliance with diet and follow up on coumadin. will have dietary speak with patient about dietary compliance. would probably be better on NOAC. 3. TANA- unknown baseline. as per pt has not had blood work for several years. likely multifactorial from heavy NSAID use, however FeNa <1. will give low dose IVF. only received 1L NS on day of admission. states he has good uop. check UA to check for protein. u/s kidneys. avoid NSAID and nephrotoxic agents. . call PMD for baseline. check urine studies. U\s kidneys. avoid nephrotoxic agents 4. DVT ppx- on hep ggt
--- NOTE | 2016-06-06 12:08 | PN ---
Progress Note, Physician History of Present Illness: No c/o leg pain No fever/ chills Tolerating antibiotics - Current Medication List Current Medications: Active Medications Amlodipine Besylate (Norvasc -) 10 mg PO DAILY [facility] Last Admin: 06/06/16 09:09 Dose: 10 mg Carvedilol (Coreg -) 12.5 mg PO BID ASHLEY Last Admin: 06/06/16 09:09 Dose: 12.5 mg Docusate Sodium (Colace -) 100 mg PO BID PRN PRN Reason: CONSTIPATION Heparin Sodium (Porcine) (Heparin -) 1,000 unit IVPUSH PRN PRN PRN Reason: Heparin Last Admin: 06/05/16 09:53 Dose: 1,000 unit Heparin Sodium (Porcine) (Heparin -) 5,000 unit IVPUSH PRN PRN PRN Reason: Heparin Last Admin: 06/03/16 11:36 Dose: 5,000 unit Heparin Sodium (Porcine) 25, (000 unit/ Sodium Chloride) 500 mls @ 20 mls/hr IV TITR ASHLEY; 1,000 UNIT/HR PRN Reason: Protocol Last Admin: 06/05/16 14:57 Dose: Not Given Ampicillin Sodium/Sulbactam (Sodium 1.5 gm/ Sodium Chloride) 100 mls @ 200 mls/ hr IVPB Q6H-IV ASHLEY Last Admin: 06/06/16 09:09 Dose: 200 mls/hr Sodium Chloride (Normal Saline -) 1,000 mls @ 75 mls/hr IV ASDIR ASHLEY Oxycodone HCl (Roxicodone -) 5 mg PO Q6H PRN PRN Reason: PAIN Last Admin: 06/06/16 09:16 Dose: 5 mg - Objective Vital Signs: Vital Signs Temperature 98.0 F 06/06/16 08:16 Pulse Rate 73 06/06/16 08:16 Respiratory Rate 20 06/06/16 08:21 Blood Pressure 143/85 06/06/16 08:16 O2 Sat by Pulse Oximetry (%) 90 L 06/04/16 21:00 Constitutional: Yes: No Distress Eyes: Yes: Conjunctiva Clear Cardiovascular: Yes: Regular Rate and Rhythm Respiratory: Yes: CTA Bilaterally Gastrointestinal: Yes: Normal Bowel Sounds, Soft. No: Tenderness Extremities: Yes: Other (dcreased erythema/ warmth LE bilaterally ulcers drying) Labs: CBC, BMP 06/06/16 05:35 06/06/16 05:30 INR, PTT INR 1.25 (0.82-1.09) H 06/04/16 09:30 Assessment/Plan Bilateral LE cellulitis Wound c/s mixed Continue unasyn Local wound care Oral antibiotics next 24-46hr
[2016-06-06] MEDS: AMPICILLIN NA/SULBACTAM NA 100 ML IVPB SCH ×2 (14:58→21:29)
[2016-06-06] MEDS: HEPARIN - 25,000 UNIT in SODIUM CHLORIDE 495 ML IV SCH (14:59)
[2016-06-06] MEDS: SODIUM CHLORIDE 1,000 ML IV SCH (15:59)
--- NOTE | 2016-06-06 17:12 | EKG ---
Test Reason : Blood Pressure : / mmHG Vent. Rate : 079 BPM Atrial Rate : 208 BPM P-R Int : 000 ms QRS Dur : 106 ms QT Int : 436 ms P-R-T Axes : 000 -63 123 degrees QTc Int : 499 ms ATRIAL FIBRILLATION LEFT ANTERIOR FASCICULAR BLOCK ABNORMAL QRS-T ANGLE, CONSIDER PRIMARY T WAVE ABNORMALITY PROLONGED QT ABNORMAL ECG WHEN COMPARED WITH ECG OF 02-JUN-2016 14:37, LEFT ANTERIOR FASCICULAR BLOCK IS NOW PRESENT Confirmed by ROSHAN CANALES MD ([id number]) on 06/06/2016 5:12:10 PM Referred By: Doroteo BOWMAN Overread By: ROSHAN CANALES MD
[2016-06-07] MEDS ORDERED: PT OWN MED DRAWER 7, Y5N ONE ×3 (02:53→14:33)
[2016-06-07] MEDS: AMPICILLIN NA/SULBACTAM NA 100 ML IVPB SCH ×4 (02:57→22:31)
[2016-06-07] MEDS: HEPARIN - 25,000 UNIT in SODIUM CHLORIDE 495 ML IV SCH (02:58)
[2016-06-07] MEDS: oxyCODONE HCL 5 MG TABLET PO PRN ×4 (03:23→22:20)
[2016-06-07 05:26] LABS: URINE APPEARANCE CLEAR; URINE BILIRUBIN NEGATIVE (NEGATIVE); URINE BLOOD NEGATIVE (NEGATIVE); URINE COLOR AMBER; URINE GLUCOSE (UA) NEGATIVE (NEGATIVE); URINE KETONE NEGATIVE (NEGATIVE); URINE LEUK ESTERASE NEGATIVE (NEGATIVE); URINE NITRITE NEGATIVE (NEGATIVE); URINE PROTEIN 1+ (NEGATIVE); URINE UROBILINOGEN 2.0 E.U/dl E.U./dl (0.2-1.0)
[2016-06-07 05:27] LABS: URINE HYALINE CAST 1 /lpf; URINE MUCUS RARE; URINE RBC <1 /hpf (0-3); URINE WBC 1 /hpf (3-5)
[2016-06-07 08:18] LABS: MCH 30.2 pg (25.7-33.7); MCHC 33.2 g/dl (32.0-35.9); MEAN PLT VOLUME 7.8 fl (7.5-11.1); PLATELET COUNT 104 K/MM3 (134-434); RDW 19.2 % (11.9-15.9); WHITE BLOOD COUNT 6.2 K/mm3 (4.0-10.0)
[2016-06-07] MEDS: CARVEDILOL 12.5 MG TABLET (FP) PO SCH ×2 (09:06→22:20)
[2016-06-07] MEDS: amLODIPine BESYLATE 10 MG TABLET (FP) PO SCH (09:06)
[2016-06-07 09:24] LABS: CALCIUM 8.3 mg/dL (8.5-10.1); CREATININE 2.1 mg/dL (0.7-1.3)
--- NOTE | 2016-06-07 10:57 | PN ---
Progress Note (short form) - Note Progress Note: s: no cp sob palps dizzy; leg pain and le edema better o: Vital Signs Period Temp Pulse Resp BP Sys/Villarreal Pulse Ox Last 24 Hr 97.8 F-98.3 F 66-84 18-20 136-167/79-95 94 Constitutional: Yes: No Distress, Obese Eyes: No: Sclera Icterus Respiratory: Yes: CTA Bilaterally. No: Accessory Muscle Use, Rales, Wheezes Cardiovascular: Yes: Pulse Irregular JVD: no Heart Sounds: Yes: S1, S2. No: Gallop Murmur: No: Systolic Murmur, Diastolic Murmur Extremities: No: Cold, Cyanosis Edema: Yes (nonpit pretib/erythema) Integumentary: No: Jaundice Neurological: Yes: Alert, Oriented (x3) Psychiatric: No: Agitated Current Medications Generic Name Dose Route Start Last Admin Trade Name Freq PRN Reason Stop Dose Admin Amlodipine Besylate 10 mg 06/04/16 10:00 06/07/16 09:06 Norvasc - PO 10 mg DAILY ASHLEY Administration Carvedilol 12.5 mg 06/03/16 22:00 06/07/16 09:06 Coreg - PO 12.5 mg BID ASHLEY Administration Docusate Sodium 100 mg 06/05/16 14:11 Colace - PO BID PRN CONSTIPATION Heparin Sodium (Porcine) 1,000 unit 06/03/16 11:05 06/05/16 09:53 Heparin - IVPUSH 1,000 unit PRN PRN Administration Heparin Heparin Sodium (Porcine) 5,000 unit 06/03/16 11:05 06/03/16 11:36 Heparin - IVPUSH 5,000 unit PRN PRN Administration Heparin Heparin Sodium (Porcine) 25, 500 mls @ 20 mls/hr 06/03/16 11:15 06/07/16 02:58 000 unit/ Sodium Chloride IV 26 mls/hr TITR ASHLEY Administration Protocol 1,000 UNIT/HR Sodium Chloride 1,000 mls @ 75 mls/hr 06/06/16 11:30 06/06/16 15:59 Normal Saline - IV 75 mls/hr ASDIR ASHLEY Administration Ampicillin Sodium/Sulbactam Sodium 100 mls @ 200 mls/hr 06/06/16 12:13 09:06 Unasyn 1.5 Gm (Pre-Docked) IVPB 200 mls/hr Q6H-IV ASHLEY Administration Oxycodone HCl 5 mg 06/05/16 14:43 06/07/16 09:07 Roxicodone - PO 5 mg Q6H PRN Administration PAIN CBC, BMP 06/07/16 06:00 06/07/16 06:00 ekg 06/02: afib (HR 117 bpm); nl axis/interv; no path q's; nonsp ST-T lateral leads (no old) ekg 06/05/16: afib, rate controlled, nl qtc, no ischemic changes telem: AFib, rate controlled, no significant bradycardia or pauses echo 05/2016: nl lv/rv, mild-mod mr, mod tr, rvsp 50-60, trivial pericardial eff Assessment/Plan HTN urgency: -noted to have bp up to syst 210, diast 116; -no PMD f/u, ? chronicity of hi bp in this pt -r/o renal dz contributing, incl nephrotic syndrome -carvedilol, amlodipine started here with improved bp. Would benefit from outpatient sleep study evaluation. AFib: -new dx (no prior MD f/u) -HR controlled on coreg -CHADS-VASC 1 (htn), so has indication for AC, has been on hep gtt. Can start coumadin or noac. -tsh wnl renal failure, ? chronic vs acute: - h/o recent heavy nsaid use. -creat near 2, no baseline, has been stable here -w/u per hospitalist +/- renal consult. No significant improvement with IVF. LE edema, cellulitis: -abx per hospitalist -leg swelling improving with abx, not very edematous, no sob or signs of chf. can hold off on diuretic for now and monitor for any clinical signs of chf can DriftToIt
--- NOTE | 2016-06-07 14:25 | PN ---
Teaching Attending Note Name of Resident: Dez Shah ATTENDING PHYSICIAN STATEMENT I saw and evaluated the patient. I reviewed the resident's note and discussed the case with the resident. I agree with the resident's findings and plan as documented. SUBJECTIVE:states swelling and pain has improved in both legs. denies CP, SOB, fever, chills, N/V/C/D. states he has not attempted getting out of bed since admission OBJECTIVE: Last Vital Signs Temp Pulse Resp BP Pulse Ox 97.8 F 78 18 136/90 94 L 06/07/16 10:00 06/07/16 10:00 06/07/16 10:00 06/07/16 10:00 06/07/16 09:00 General NAD Extremities improved erythema and swelling. continue to have multiple calf ulcers at various stages of healing. Microbiology 06/02/16 16:05 Blood Culture - Preliminary Blood - Peripheral Venous NO GROWTH OBTAINED AFTER 96 HOURS, INCUBATION TO CONTINUE FOR 1 DAYS. 06/02/16 14:30 Blood Culture - Preliminary Blood - Peripheral Venous NO GROWTH OBTAINED AFTER 96 HOURS, INCUBATION TO CONTINUE FOR 1 DAYS. 06/02/16 21:41 Gram Stain - Final Wound Wound Culture - Preliminary Group D Strep Or Entero Coccus Proteus Vulgaris ASSESSMENT AND PLAN: 56yo M with PMH HTN presented to the ER and was admitted for further evaluation of their emergent condition 1. B/L LE cellulitis with multiple ulcers-clinically improved. switched to unasyn with continuned improvement. ID evaluated recommends 24H more of IV abx then can likely transition to oral abx. will await final recommendations and duration. will obtain PT eval to ensure stable walking. will recommend vascular evaluation as outpatient. 2. new onset afib- rate controlled on coreg. [id number] 1, on heparin ggt. concern pt will likely not be compliant with follow up for frequent blood draws. d/w pt in detail will start eliquis. counseled on risks of bleeding and lack of reversal agents. 3. TANA- unknown baseline. stablized on IVF. pt continuing to refuse u/s. avoid nephrotoxic agents 4. DVT ppx- on eliquis 5. d/c planning for tomorrow at ID discretion if abx can be converted to po. PT eval to ensure safe for home discharge vs AYAZ. counseled importance of medication compliance and doctor follow up
[2016-06-07] MEDS: SODIUM CHLORIDE 1,000 ML IV SCH (14:45)
--- NOTE | 2016-06-07 20:07 | PN ---
Physical Exam: SUBJECTIVE: Patient seen and examined at bed side. patient reports swelling, pain, erythema, ulcers has been improving. Denies, fevers, chills, N/V/D/C, CP, palpitations, SOB. Discussed with patient risk and befits of AC therapy. OBJECTIVE: Vital Signs Period Temp Pulse Resp BP Sys/Villarreal Pulse Ox Last 24 Hr 97.6 F-98.3 F 66-78 18-20 136-167/81-90 94 GENERAL: The patient is awake, alert, and fully oriented, in no acute distress. sitting and eating comfortably. ENT: Pupils equal, round and reactive to light, extraocular movements intact, sclera anicteric, conjunctiva clear. Neck supple. LUNGS: Clear to auscultation bilaterally. Normal excursion. No respiratory distress or use of accessory muscles. CV: Irregular rhythm, tachycardic, S1/S2, no MRG. Cap refill < 2 sec. ABDOMEN: Soft, non-distended, non-tender. EXTREMITIES: Normal range of motion. Tense LE edema bilaterally, weeping. NEUROLOGICAL: Normal speech, normal gait. CN II-XII grossly intact. PSYCH: Normal mood, normal affect. SKIN: LLE: multiple calf ulcers,weeping, erythema clear demarcations from mid foot to just below knee again decreased form yesterday more anterior erythema of legs. 4 x 3 cm and 3 x 1.5cm left medial calf ulcerations with purulent yellow discharge. 3 x 4cm blister to left lateral calf. Large, open area to posterior calf, weeping. RLW: 5 x 6 cm ulceration to right medial calf with large amount of yellow purulent discharge.1+ pitting edema, pulses weak but intact B/L Laboratory Results - last 24 hr 06/07/16 06/07/16 06/07/16 03:49 06:00 06:00 WBC 6.2 RBC 3.77 L Hgb 11.4 L Hct 34.3 L MCV 91.0 MCHC 33.2 RDW 19.2 H Plt Count 104 L MPV 7.8 PTT (Actin FS) 56.5 H Sodium Potassium Chloride Carbon Dioxide Anion Gap BUN Creatinine Random Glucose Calcium Urine Color [place] Urine Appearance Clear Urine pH 5.0 Ur Specific [place] 1.026 Urine Protein 1+ H Urine Glucose (UA) Negative Urine Ketones Negative Urine Blood Negative Urine Nitrite Negative Urine Bilirubin Negative Urine Urobilinogen 2.0 e.u/dl Ur Leukocyte Esterase Negative Urine RBC <1 Urine WBC 1 Ur Epithelial Cells Rare Hyaline Casts 1 Urine Mucus Rare 06/07/16 06:00 WBC RBC Hgb Hct MCV MCHC RDW Plt Count MPV PTT (Actin FS) Sodium 145 Potassium 3.9 Chloride 106 Carbon Dioxide 30 Anion Gap 9 BUN 29 H Creatinine 2.1 H Random Glucose 122 H D Calcium 8.3 L Urine Color Urine Appearance Urine pH Ur Specific [place] Urine Protein Urine Glucose (UA) Urine Ketones Urine Blood Urine Nitrite Urine Bilirubin Urine Urobilinogen Ur Leukocyte Esterase Urine RBC Urine WBC Ur Epithelial Cells Hyaline Casts Urine Mucus Active Medications Generic Name Dose Route Start Last Admin Trade Name Freq PRN Reason Stop Dose Admin Amlodipine Besylate 10 mg 06/04/16 10:00 06/07/16 09:06 Norvasc - PO 10 mg DAILY ASHLEY Administration Apixaban 5 mg 06/07/16 22:00 Eliquis - PO BID ASHLEY Carvedilol 12.5 mg 06/03/16 22:00 06/07/16 09:06 Coreg - PO 12.5 mg BID ASHLEY Administration Docusate Sodium 100 mg 06/05/16 14:11 Colace - PO BID PRN CONSTIPATION Sodium Chloride 1,000 mls @ 75 mls/hr 06/06/16 11:30 06/07/16 14:45 Normal Saline - IV 75 mls/hr ASDIR ASHLEY Administration Ampicillin Sodium/Sulbactam Sodium 100 mls @ 200 mls/hr 06/06/16 12:13 14:45 Unasyn 1.5 Gm (Pre-Docked) IVPB 200 mls/hr Q6H-IV ASHLEY Administration Oxycodone HCl 5 mg 06/05/16 14:43 06/07/16 15:10 Roxicodone - PO 5 mg Q6H PRN Administration PAIN ASSESSMENT/PLAN: 56 year old man admitted for failed outpatient therapy for B/L lower extremity cellulitis LE Edema, acute Cellulitis, super imposed on chronic venous stasis afebrile, clinically improved. -switched to Unasyn per ID attending, DAY 2 switched to PO tomorrow and discharged to rehab -will recommend vascular evaluation as outpatient. -JVD on exam, vs related to irreg carotid pulsations (afib) -BNP will not be helpful with his decr'd renal fxn -defer lasix while observe creat trend: no sob, leg swelling and erythema improving with abx per patient, not very edematous, -percocets prn for pain control. New onset Afib: rate controlled on carvedilol -2D echo reading pending -TSH wNL -telemetry monitoring -start eliquis (Anirudh vasc score 1, HbA1c 5.6). HTN -r/o renal dz contributing, incl nephrotic syndrome -carvedilol, amlodipine started here--160s/100s this am -cont same meds, observe bp trend Acute Kidney Injury: unknown baseline. as per pt has not had blood work for several years. likely multifactorial from heavy NSAID use, however FeNa <1 -pt was taking NSAID's daily for the past week with decreased water intake (was drinking more juices of late) -trend cr -creat near 2, no known baseline cr: now stable -refused renal consult. -will give low dose IVF. -only received 1L NS on day of admission. -avoid NSAID and nephrotoxic agents thrombocytopenia, mild: -per hospitalist will monitor FEN monitor and replenish electrolyte as needed oral hydration sodium controlled diet dispo:5. d/c pending switch to oral antibiotics tomorrow. PT eval to ensure safe for home discharge vs [facility]. c Visit type - Emergency Visit Emergency Visit: Yes ED Registration Date: 06/02/16 Care time: The patient presented to the Emergency Department on the above date and was hospitalized for further evaluation of their emergent condition. - New Patient This patient is new to me today: No - Critical Care Critical Care patient: No
[2016-06-07] MEDS ORDERED: APIXABAN 2.5 MG TABLET PO SCH (22:00)
[2016-06-07] MEDS: APIXABAN 5 MG TABLET PO SCH (22:21)
[2016-06-08] MEDS: AMPICILLIN NA/SULBACTAM NA 100 ML IVPB SCH ×2 (03:51→09:52)
[2016-06-08 07:42] LABS: CALCIUM 8.6 mg/dL (8.5-10.1); CREATININE 2.1 mg/dL (0.7-1.3)
--- NOTE | 2016-06-08 08:19 | DS ---
Physical Exam: SUBJECTIVE: Patient seen and examined OBJECTIVE: Vital Signs Period Temp Pulse Resp BP Sys/Villarreal Pulse Ox Last 24 Hr 97.6 F-98.2 F 73-106 18-20 136-164/79-98 94-94 PHYSICAL EXAM GENERAL: The patient is awake, alert, and fully oriented, in no acute distress. HEAD: Normal with no signs of trauma. EYES: PERRL, extraocular movements intact, sclera anicteric, conjunctiva clear. ENT: Ears normal, nares patent, oropharynx clear without exudates, moist mucous membranes. NECK: Trachea midline, full range of motion, supple. LUNGS: Breath sounds equal, clear to auscultation bilaterally, no wheezes, no crackles, no accessory muscle use. HEART: Regular rate and rhythm, S1, S2 without murmur, rub or gallop. ABDOMEN: Soft, nontender, nondistended, normoactive bowel sounds, no guarding, no rebound, no hepatosplenomegaly, no masses. EXTREMITIES: 2+ pulses, warm, well-perfused, no edema. NEUROLOGICAL: Cranial nerves II through XII grossly intact. Normal speech, gait not observed. PSYCH: Normal mood, normal affect. SKIN: Warm, dry, normal turgor, no rashes or lesions noted. LABS Laboratory Results - last 24 hr 06/07/16 06/07/16 06/07/16 06:00 06:00 06:00 WBC 6.2 RBC 3.77 L Hgb 11.4 L Hct 34.3 L MCV 91.0 MCHC 33.2 RDW 19.2 H Plt Count 104 L MPV 7.8 PTT (Actin FS) 56.5 H Sodium 145 Potassium 3.9 Chloride 106 Carbon Dioxide 30 Anion Gap 9 BUN 29 H Creatinine 2.1 H Random Glucose 122 H D Calcium 8.3 L 06/08/16 05:35 WBC RBC Hgb Hct MCV MCHC RDW Plt Count MPV PTT (Actin FS) Sodium 145 Potassium 4.4 Chloride 110 H Carbon Dioxide 30 Anion Gap 5 L BUN 27 H Creatinine 2.1 H Random Glucose 99 Calcium 8.6 Ampicillin Sodium/Sulbactam Sodium (Unasyn 1.5 Gm (Pre-Docked)) 100 mls @ 200 mls/hr IVPB Q6H-IV ASHLEY Amlodipine Besylate (Norvasc -) 10 mg PO DAILY ASHLEY Apixaban (Eliquis -) 5 mg PO BID ASHLEY Carvedilol (Coreg -) 12.5 mg PO BID ASHLEY Docusate Sodium (Colace -) 100 mg PO BID PRN Sodium Chloride (Normal Saline -) 1,000 mls @ 75 mls/hr IV ASDIR ASHLEY Oxycodone HCl (Roxicodone -) 5 mg PO Q6H PRN HOSPITAL COURSE: Date of Admission:06/02/16 Date of Discharge: 06/08/16 Discharge Summary Reason For Visit: [place] AFIB,SEPSIS,CELLULITIS OF DAGOBERTO Current Active Problems Acute kidney injury (Acute) Cellulitis of both lower extremities (Acute) Hypertension (Acute) New onset atrial fibrillation (Acute) Sepsis (Acute) - Instructions Referrals: Harris Diane MD [Primary Care Provider] - - Home Medications Comprehensive Discharge Medication List: Ambulatory Orders Colchicine [Colcrys] 0 mg PO ASDIR 06/02/16
[2016-06-08] MEDS ORDERED: PT OWN MED DRAWER 7, Y5N ONE (09:02)
[2016-06-08] MEDS: APIXABAN 5 MG TABLET PO SCH ×2 (09:53→21:28)
[2016-06-08] MEDS: amLODIPine BESYLATE 10 MG TABLET (FP) PO SCH (09:53)
[2016-06-08] MEDS: CARVEDILOL 12.5 MG TABLET (FP) PO SCH ×2 (09:53→21:27)
[2016-06-08] MEDS: oxyCODONE HCL 5 MG TABLET PO PRN ×3 (10:01→21:27)
--- NOTE | 2016-06-08 11:17 | PN ---
Progress Note (short form) - Note Progress Note: s: no cp sob palps dizzy; leg pain and le edema better o: Vital Signs Period Temp Pulse Resp BP Sys/Villarreal Pulse Ox Last 24 Hr 97.6 F-98.2 F 73-106 18-20 144-164/79-98 94 Constitutional: Yes: No Distress, Obese Eyes: No: Sclera Icterus Respiratory: Yes: CTA Bilaterally. No: Accessory Muscle Use, Rales, Wheezes Cardiovascular: Yes: Pulse Irregular JVD: no Heart Sounds: Yes: S1, S2. No: Gallop Murmur: No: Systolic Murmur, Diastolic Murmur Extremities: No: Cold, Cyanosis Edema: Yes (nonpit pretib/erythema) Integumentary: No: Jaundice Neurological: Yes: Alert, Oriented (x3) Psychiatric: No: Agitated Current Medications Generic Name Dose Route Start Last Admin Trade Name Freq PRN Reason Stop Dose Admin Amlodipine Besylate 10 mg 06/04/16 10:00 06/08/16 09:53 Norvasc - PO 10 mg DAILY ASHLEY Administration Apixaban 5 mg 06/07/16 22:00 06/08/16 09:53 Eliquis - PO 5 mg BID ASHLEY Administration Carvedilol 12.5 mg 06/03/16 22:00 06/08/16 09:53 Coreg - PO 12.5 mg BID ASHLEY Administration Docusate Sodium 100 mg 06/05/16 14:11 Colace - PO BID PRN CONSTIPATION Sodium Chloride 1,000 mls @ 75 mls/hr 06/06/16 11:30 06/07/16 14:45 Normal Saline - IV 75 mls/hr ASDIR ASHLEY Administration Ampicillin Sodium/Sulbactam Sodium 100 mls @ 200 mls/hr 06/06/16 12:13 09:52 Unasyn 1.5 Gm (Pre-Docked) IVPB 200 mls/hr Q6H-IV ASHLEY Administration Oxycodone HCl 5 mg 06/05/16 14:43 06/08/16 10:01 Roxicodone - PO 5 mg Q6H PRN Administration PAIN CBC, BMP 06/07/16 06:00 06/08/16 05:35 ekg 06/02: afib (HR 117 bpm); nl axis/interv; no path q's; nonsp ST-T lateral leads (no old) ekg 06/05/16: afib, rate controlled, nl qtc, no ischemic changes telem: AFib, rate controlled, no significant bradycardia or pauses echo 05/2016: nl lv/rv, mild-mod mr, mod tr, rvsp 50-60, trivial pericardial eff Assessment/Plan HTN urgency: -noted to have bp up to syst 210, diast 116; -no PMD f/u, ? chronicity of hi bp in this pt -r/o renal dz contributing, incl nephrotic syndrome -carvedilol, amlodipine started here with improved bp. Would benefit from outpatient sleep study evaluation. AFib: -new dx (no prior MD f/u) -HR controlled on coreg -CHADS-VASC 1 (htn), so has indication for AC, has been on hep gtt. Can start coumadin or noac. -tsh wnl renal failure, ? chronic vs acute: - h/o recent heavy nsaid use. -creat near 2, no baseline, has been stable here -w/u per hospitalist +/- renal consult. No significant improvement with IVF. LE edema, cellulitis: -abx per hospitalist -leg swelling improving with abx, not very edematous, no sob or signs of chf. can hold off on diuretic for now and monitor for any clinical signs of chf can dc tele, cardiac siegel stable for dc, can f/u with us in office
[2016-06-08] MEDS: SODIUM CHLORIDE 1,000 ML IV SCH (11:50)
--- NOTE | 2016-06-08 12:25 | PN ---
Progress Note, Physician History of Present Illness: No c/o leg pain No fever/ chills - Current Medication List Current Medications: Active Medications Amlodipine Besylate (Norvasc -) 10 mg PO DAILY [facility] Last Admin: 06/08/16 09:53 Dose: 10 mg Apixaban (Eliquis -) 5 mg PO BID [facility] Last Admin: 06/08/16 09:53 Dose: 5 mg Carvedilol (Coreg -) 12.5 mg PO BID [facility] Last Admin: 06/08/16 09:53 Dose: 12.5 mg Docusate Sodium (Colace -) 100 mg PO BID PRN PRN Reason: CONSTIPATION Sodium Chloride (Normal Saline -) 1,000 mls @ 75 mls/hr IV ASDIR [facility] Last Admin: 06/08/16 11:50 Dose: Not Given Ampicillin Sodium/Sulbactam Sodium (Unasyn 1.5 Gm (Pre-Docked)) 100 mls @ 200 mls/hr IVPB Q6H-IV [facility] Last Admin: 06/08/16 09:52 Dose: 200 mls/hr Oxycodone HCl (Roxicodone -) 5 mg PO Q6H PRN PRN Reason: PAIN Last Admin: 06/08/16 10:01 Dose: 5 mg - Objective Vital Signs: Vital Signs Temperature 98 F 06/08/16 06:07 Pulse Rate 75 06/08/16 11:20 Respiratory Rate 20 06/08/16 06:07 Blood Pressure 159/98 06/08/16 06:07 O2 Sat by Pulse Oximetry (%) 84 L 06/08/16 11:20 Constitutional: Yes: No Distress Cardiovascular: Yes: Regular Rate and Rhythm, S1, S2 Respiratory: Yes: CTA Bilaterally Gastrointestinal: Yes: Normal Bowel Sounds, Soft. No: Tenderness Extremities: Yes: Other (decreased bilateral LE erythema + chronic venous stasis dermatitis) Labs: CBC, BMP 06/07/16 06:00 06/08/16 05:35 INR, PTT INR 1.25 (0.82-1.09) H 06/04/16 09:30 Assessment/Plan Bilateral LE cellulitis Wound c/s mixed Advise: Augmentin 875mg po bid x7d Outpatient followup
--- NOTE | 2016-06-08 12:28 | PN ---
Teaching Attending Note Name of Resident: Dez Shah ATTENDING PHYSICIAN STATEMENT I saw and evaluated the patient. I reviewed the resident's note and discussed the case with the resident. I agree with the resident's findings and plan as documented. SUBJECTIVE:states B/L infection in his legs is improved. feels overall weak and had difficulty ambulating with PT today due to pain in his legs. denies CP, SOB, fever, chills, cough, N/V/C/D OBJECTIVE: Last Vital Signs Temp Pulse Resp BP Pulse Ox 98 F 75 20 159/98 84 L 06/08/16 06:07 06/08/16 11:20 06/08/16 06:07 06/08/16 06:07 06/08/16 11:20 General NAD Abdomen obese NT/ND Extremities improved erythema B/L LE, multiple calf ulcers at various stages of healing ASSESSMENT AND PLAN: 56yo M with PMH HTN presented to the ER and was admitted for further evaluation of their emergent condition 1. B/L LE cellulitis with multiple ulcers-clinically improved. switched to unasyn with continuned improvement. will d/w ID about oral abx adn duration. recommend vascular evaluation as outpatient. 2. new onset afib- rate controlled on coreg. [id number] 1, switched hep ggt to eliquis. feel like he will not be compliant with diet and frequent doctor visits on coumadin. 3. liver mass- incidental finding on u/s of the kidneys. 2 large masses ( largest 10cm), states malignancy vs hemangioma, will need CT or MRI with contrast however in setting of CKD makes it difficult. radiology states dry imaging would not allow them to differentiate. recommends nephrology evaluation on ability to give contrast. will check AFP 4. HTN- uncontrolled. start HCTZ low dose and monitor, unable to increase coreg due to bradycardia on the monitor 5. TANA- unknown baseline. now stable. U/s negative. will d/c IVF. nephrology consulted. avoid nephrotoxic agents 6. Hypoxia- noted pt to be hypoxic. CT chest to further evaluate etiology 7. DVT ppx- on eliquis 8. will likely require d/c planning to [facility] as only able to tolerate walking 10 feet.
--- NOTE | 2016-06-08 14:59 | CONSULT ---
Consult Consult Specialty:: Nephrology Reason for Consultation:: CKD - History of Present Illness Chief Complaint: cellulitis History of Present Illness: Pt is a 56 year old male who was initially admitted for treatment of cellulitis of his lower extremities. He was found to have an elevated creatinine on admission that did not change much through the course of his hospital stay. He denies history of CKD. He however does not follow up with a physician. He has been taking NSAIDs for pain. He was found to have a liver mass on ultrasound. I was called to comment on his renal failure and risk for JUNG as well. He does complain of mild shortness of breath. - History Source History Provided By: Patient, Medical Record - Past Medical History Cardio/Vascular: Yes: HTN Renal/: Yes: Renal Inusuff Rheumatology: Yes: Gout - Alcohol/Substance Use Hx Alcohol Use: No - Smoking History Smoking history: Former smoker Have you smoked in the past 12 months: No Home Medications - Allergies Allergies/Adverse Reactions: Allergies Allergy/AdvReac Type Severity Reaction Status Date / Time No Known Allergies Allergy Verified 06/02/16 12:34 - Home Medications Home Medications: Ambulatory Orders Colchicine [Colcrys] 0 mg PO ASDIR 06/02/16 Family Disease History - Family Disease History Family History: Denies Review of Systems - Review of Systems Constitutional: reports: Malaise Eyes: reports: No Symptoms HENT: reports: No Symptoms Neck: reports: No Symptoms Cardiovascular: reports: No Symptoms Respiratory: reports: No Symptoms Gastrointestinal: reports: No Symptoms Genitourinary: reports: No Symptoms Musculoskeletal: reports: Extremity Pain Neurological: reports: No Symptoms Endocrine: reports: No Symptoms Hematology/Lymphatic: reports: No Symptoms Psychiatric: reports: No Symptoms Physical Exam Vital Signs: Vital Signs Temperature 98 F 06/08/16 06:07 Pulse Rate 75 06/08/16 11:20 Respiratory Rate 20 06/08/16 06:07 Blood Pressure 159/98 06/08/16 06:07 O2 Sat by Pulse Oximetry (%) 84 L 06/08/16 11:20 Constitutional: Yes: Calm Eyes: Yes: Conjunctiva Clear HENT: Yes: Atraumatic Neck: Yes: Supple Cardiovascular: Yes: S1, S2 Respiratory: Yes: Other (decreased at bases) Gastrointestinal: Yes: Soft, Abdomen, Obese Renal/: Yes: WNL Edema: Yes Edema: LLE: 1+, RLE: 1+ Neurological: Yes: Oriented Psychiatric: Yes: Oriented Labs: CBC, BMP 06/07/16 06:00 06/08/16 05:35 Laboratory Tests 06/02/16 06/03/16 06/04/16 14:10 05:50 05:48 Sodium Potassium Chloride Carbon Dioxide Anion Gap BUN Creatinine 2.0 H 2.0 H 1.8 H Urine Color Urine Appearance Urine pH Ur Specific [place] Urine Protein Urine Glucose (UA) Urine Ketones Urine Blood Urine Nitrite Urine Bilirubin 06/05/16 06/06/16 06/07/16 09:30 05:30 03:49 Sodium Potassium Chloride Carbon Dioxide Anion Gap BUN Creatinine 2.2 H D 2.2 H Urine Color Pilar Urine Appearance Clear Urine pH 5.0 Ur Specific [place] 1.026 Urine Protein 1+ H Urine Glucose (UA) Negative Urine Ketones Negative Urine Blood Negative Urine Nitrite Negative Urine Bilirubin Negative 06/07/16 06/08/16 06:00 05:35 Sodium 145 Potassium 4.4 Chloride 110 H Carbon Dioxide 30 Anion Gap 5 L BUN 27 H Creatinine 2.1 H 2.1 H Urine Color Urine Appearance Urine pH Ur Specific [place] Urine Protein Urine Glucose (UA) Urine Ketones Urine Blood Urine Nitrite Urine Bilirubin Imaging - Results Ultrasound: Report Reviewed (kidney appear unremarkable, there is a hepatic mass ) Assessment/Plan Current Medications Generic Name Dose Route Start Last Admin Trade Name Freq PRN Reason Stop Dose Admin Amlodipine Besylate 10 mg 06/04/16 10:00 06/08/16 09:53 Norvasc - PO 10 mg DAILY ASHLEY Administration Amoxicillin/Clavulanate Potassium 1 tab 06/08/16 17:30 Augmentin - 875mg Tablet PO BID@0800,1730 ASHLEY Apixaban 5 mg 06/07/16 22:00 06/08/16 09:53 Eliquis - PO 5 mg BID ASHLEY Administration Carvedilol 12.5 mg 06/03/16 22:00 06/08/16 09:53 Coreg - PO 12.5 mg BID ASHLEY Administration Docusate Sodium 100 mg 06/05/16 14:11 Colace - PO BID PRN CONSTIPATION Oxycodone HCl 5 mg 06/05/16 14:43 06/08/16 14:17 Roxicodone - PO 5 mg Q6H PRN Administration PAIN Impression 1. likely CKD 2. HTN 3. a-fib 4. liver mass 5. cellulitis Plan - advised pt not to take nsaids - there is a risk of JUNG with contrast administration, he is currently unsure if he wants to do the test - check cxr and ABG, spoke to resident. Pt appears to be getting congested, hold fluids for now. - abx for cellulitis - he does have proteinuria, pt will need an outpt workup for CKD, this was explained at length to pt - monitor BP - liver mass will need to be worked up as well - will follow Dr Desai
--- NOTE | 2016-06-08 15:13 | PN ---
Physical Exam: SUBJECTIVE: Patient seen and examined at bed side. patient reports swelling, pain, erythema, ulcers has been improving. Denies, fevers, chills, N/V/D/C, CP, palpitations, SOB. reports pain with walking when ambulated with physical therapy, pre and post oxygen :Could not walk him on room air due to low SAT. 77% Could only take a few steps inside room due to pain, SAT. on 4L=84% OBJECTIVE: Vital Signs Period Temp Pulse Resp BP Sys/Villarreal Pulse Ox Last 24 Hr 97.6 F-98.2 F 73-106 18-20 144-164/79-98 84-94 GENERAL: The patient is awake, alert, and fully oriented, in no acute distress. sitting and eating comfortably. ENT: Pupils equal, round and reactive to light, extraocular movements intact, sclera anicteric, conjunctiva clear. Neck supple. LUNGS: Clear to auscultation bilaterally.+ decreased breath sounds bibasilay, Normal excursion. No respiratory distress or use of accessory muscles. CV: Irregular rhythm, tachycardic, S1/S2, no MRG. +JVD Cap refill < 2 sec. ABDOMEN: Soft, non-distended, non-tender. EXTREMITIES: Normal range of motion. Tense LE edema bilaterally, weeping. NEUROLOGICAL: Normal speech, normal gait. CN II-XII grossly intact. PSYCH: Normal mood, normal affect. SKIN: LLE: multiple calf ulcers,weeping, erythema clear demarcations from mid foot to just below knee again decreased form yesterday more anterior erythema of legs. 4 x 3 cm and 3 x 1.5cm left medial calf ulcerations with purulent yellow discharge. 3 x 4cm blister to left lateral calf. Large, open area to posterior calf, weeping. RLW: 5 x 6 cm ulceration to right medial calf with large amount of yellow purulent discharge.1+ pitting edema, pulses weak but intact B/L Laboratory Results - last 24 hr 06/08/16 05:35 Sodium 145 Potassium 4.4 Chloride 110 H Carbon Dioxide 30 Anion Gap 5 L BUN 27 H Creatinine 2.1 H Random Glucose 99 Calcium 8.6 Active Medications Generic Name Dose Route Start Last Admin Trade Name Freq PRN Reason Stop Dose Admin Amlodipine Besylate 10 mg 06/04/16 10:00 06/08/16 09:53 Norvasc - PO 10 mg DAILY ASHLEY Administration Amoxicillin/Clavulanate Potassium 1 tab 06/08/16 17:30 Augmentin - 875mg Tablet PO BID@0800,1730 ASHLEY Apixaban 5 mg 06/07/16 22:00 06/08/16 09:53 Eliquis - PO 5 mg BID ASHLEY Administration Carvedilol 12.5 mg 06/03/16 22:00 06/08/16 09:53 Coreg - PO 12.5 mg BID ASHLEY Administration Docusate Sodium 100 mg 06/05/16 14:11 Colace - PO BID PRN CONSTIPATION Oxycodone HCl 5 mg 06/05/16 14:43 06/08/16 14:17 Roxicodone - PO 5 mg Q6H PRN Administration PAIN ASSESSMENT/PLAN: 56 year old man admitted for failed outpatient therapy for B/L lower extremity cellulitis LE Edema, acute Cellulitis, super imposed on chronic venous stasis afebrile, clinically improved. -switched to PO Augmentin 875mg po bid x7d and discharged to rehab -will recommend vascular evaluation as outpatient. -JVD on exam, vs related to irreg carotid pulsations (afib) -BNP will not be helpful with his decr'd renal fxn -HOLD lasix while observe creat trend: no sob, leg swelling and erythema improving with abx per patient, not very edematous, -percocets prn for pain control. liver mass- incidental finding on u/s of the kidneys. 2 large masses (largest 10cm), states malignancy vs hemangioma, -will need CT or MRI with contrast however in setting of CKD makes it difficult. -radiology states dry imaging would not allow them to differentiate. -will check AFP - avoid contrast study at this time per nephrology as there is a risk of JUNG with contrast administration - pt advised not to take nsaids New onset Afib: rate controlled on carvedilol -2D echo reading pending -TSH wNL -telemetry monitoring -start eliquis (Anirudh vasc score 1, HbA1c 5.6). Hypoxia- Pt appears to be getting congested, hold fluids for now. -check chest CT -ABG in AM HTN-uncontrolled- protienurea -carvedilol, amlodipine started here--160s/100s this am -cont same meds, observe bp trend -start HCTZ low dose and monitor, unable to increase coreg due to bradycardia on the monitor Acute Kidney Injury: unknown baseline. as per pt has not had blood work for several years. likely multifactorial from heavy NSAID use, however FeNa <1 -pt was taking NSAID's daily for the past week with decreased water intake (was drinking more juices of late) -trend cr -creat near 2, no known baseline cr: now stable -will give low dose IVF. -only received 1L NS on day of admission. -avoid NSAID and nephrotoxic agents thrombocytopenia, mild: -per hospitalist will monitor FEN monitor and replenish electrolyte as needed oral hydration sodium controlled diet dispo:5. d/c pending switch to oral antibiotics tomorrow. PT eval to ensure safe for AYAZ as patient only walked 10 feet. Visit type - Emergency Visit Emergency Visit: Yes ED Registration Date: 06/02/16 Care time: The patient presented to the Emergency Department on the above date and was hospitalized for further evaluation of their emergent condition. - New Patient This patient is new to me today: No - Critical Care Critical Care patient: No
[2016-06-08] MEDS: AMOX TR/POT CLAV 875MG/125MG TABLETS (FP) PO SCH (18:06)
[2016-06-08] MEDS ORDERED: HYDROCHLOROTHIAZIDE 12.5 MG CAPSULE (FP) PO SCH (19:30)
[2016-06-09] MEDS: oxyCODONE HCL 5 MG TABLET PO PRN ×3 (04:17→21:28)
[2016-06-09 07:34] LABS: ARTERIAL BLD GAS O2 SATURATION 94.7 % (90-98.9); ARTERIAL BLOOD GAS BASE EXCESS -0.1 meq/l (-2-2); ARTERIAL BLOOD GAS HCO3 27.3 meq/L (22-26); ARTERIAL BLOOD GAS PO2 78.5 mmHg (80-100)
[2016-06-09 07:35] LABS: ALLENS TEST POSITIVE; ART PUNCT SITE LEFT BRACHIAL; ARTERIAL BLOOD GAS pH 7.27 (7.35-7.45); PT. ON O2? YES
[2016-06-09 07:36] LABS: LPM/O2% 5L; TYPE OF O2 NASAL
--- NOTE | 2016-06-09 07:47 | PN ---
Progress Note (short form) - Note Progress Note: states he is asymptomatic. denies SOB, fever, chills, cough, N/V/C/D, confusion or AMS, morning THOMPSON Current Medications Generic Name Dose Route Start Last Admin Trade Name Freq PRN Reason Stop Dose Admin Amlodipine Besylate 10 mg 06/04/16 10:00 06/08/16 09:53 Norvasc - PO 10 mg DAILY ASHLEY Administration Amoxicillin/Clavulanate Potassium 1 tab 06/08/16 17:30 06/08/16 18:06 Augmentin - 875mg Tablet PO 1 tab BID@0800,1730 ASHLEY Administration Apixaban 5 mg 06/07/16 22:00 06/08/16 21:28 Eliquis - PO 5 mg BID ASHLEY Administration Carvedilol 12.5 mg 06/03/16 22:00 06/08/16 21:27 Coreg - PO 12.5 mg BID ASHLEY Administration Docusate Sodium 100 mg 06/05/16 14:11 Colace - PO BID PRN CONSTIPATION Hydrochlorothiazide 12.5 mg 06/08/16 19:30 Hctz - PO DAILY ASHLEY Oxycodone HCl 5 mg 06/05/16 14:43 06/09/16 04:17 Roxicodone - PO 5 mg Q6H PRN Administration PAIN Last Vital Signs Temp Pulse Resp BP Pulse Ox 98.5 F 89 20 159/66 92 L 06/09/16 05:23 06/09/16 05:23 06/09/16 05:23 06/09/16 05:23 06/09/16 04:58 General NAD CV S1 S2 + Lungs decreased breath sounds R mid lung field to base, L base no wheezing Abdomen obese NT/ND Extremities improved erythema B/L LE, multiple calf ulcers at various stages of healing ASSESSMENT AND PLAN: 56yo M with PMH HTN presented to the ER and was admitted for further evaluation of their emergent condition 1. Acute hypercapnic hypoxic respiratory distress- OHS, STEPHAN with acute pleural effusion. noted yesterday to be hypoxic. CT chest done showing significant pleural effusion, and some interstitial lung disease. ABG showing Hypercapnia, which is likely acute on chronic. will give lasix 40mg IVP stat. incentive spirometer, will repeat ABG if no improvement in CO2 will need to place on bipap , currently pt is refusing and has maintained mental status so will cautiously wait at this time. currently 72% on RA, improves to 96% on 4L NC. will need to have repeat CT scan to f/u enlarged pretracheal LN. infiltrates also seen on CT , however in the absence of cough, leukocytosis and in the setting of day course of abx will hold off on treating at this time. will need outpatient follow up for likely STEPHAN. 2. B/L LE cellulitis with multiple ulcers-clinically improved. completed 7 days of unasyn now switched to augmentin for 7 day course. wound care. vascular f/u outpatient. 3. new onset afib- rate controlled on coreg. started on eliquis. cardiology on board 4. liver mass-dry CT scan of the abdomen done will 11cm mass on the liver. appears to have chronic liver disease. AFP pending. 5. HTN- improved. cont coreg, norvasc and HCTZ 6. TANA- likely chronic. evaluated by neprhology will need outpatient follow up. monitor with lasix management. 7. DVT ppx- on eliquis Visit type - Emergency Visit Emergency Visit: Yes ED Registration Date: 06/02/16 Care time: The patient presented to the Emergency Department on the above date and was hospitalized for further evaluation of their emergent condition. - New Patient This patient is new to me today: No - Critical Care Critical Care patient: No - Discharge Referral Referred to [facility] Med P.C.: No
[2016-06-09] MEDS ORDERED: FUROSEMIDE 40 MG/4 ML INJECTABLE VIAL IVPUSH ONE (07:48)
[2016-06-09] MEDS: AMOX TR/POT CLAV 875MG/125MG TABLETS (FP) PO SCH ×2 (08:00→21:28)
[2016-06-09 08:22] LABS: CALCIUM 8.7 mg/dL (8.5-10.1); CREATININE 1.9 mg/dL (0.7-1.3)
[2016-06-09] MEDS: CARVEDILOL 12.5 MG TABLET (FP) PO SCH ×2 (09:41→21:27)
[2016-06-09] MEDS: amLODIPine BESYLATE 10 MG TABLET (FP) PO SCH (09:42)
[2016-06-09] MEDS: APIXABAN 5 MG TABLET PO SCH ×2 (09:42→21:28)
--- NOTE | 2016-06-09 11:30 | PN ---
Progress Note (short form) - Note Progress Note: RENAL Awake and alert comfortable says he is making a lot of urine his urinal was full next to his bed Last Vital Signs Temp Pulse Resp BP Pulse Ox 98.5 F 89 20 159/66 91 L 06/09/16 05:23 06/09/16 10:46 06/09/16 05:23 06/09/16 05:23 06/09/16 10:46 lungs clear cvs s1s2 rr abd soft ext +edema skin has bilateral lower extremity dressings, some excoriations evidence of vnous insufficiency CBC, BMP 06/07/16 06:00 06/09/16 06:00 Current Medications Generic Name Dose Route Start Last Admin Trade Name Freq PRN Reason Stop Dose Admin Amlodipine Besylate 10 mg 06/04/16 10:00 06/09/16 09:42 Norvasc - PO 10 mg DAILY ASHLEY Administration Amoxicillin/Clavulanate Potassium 1 tab 06/08/16 17:30 06/09/16 08:00 Augmentin - 875mg Tablet PO 1 tab BID@0800,1730 ASHLEY Administration Apixaban 5 mg 06/07/16 22:00 06/09/16 09:42 Eliquis - PO 5 mg BID ASHLEY Administration Carvedilol 12.5 mg 06/03/16 22:00 06/09/16 09:41 Coreg - PO 12.5 mg BID ASHLEY Administration Docusate Sodium 100 mg 06/05/16 14:11 Colace - PO BID PRN CONSTIPATION Hydrochlorothiazide 12.5 mg 06/08/16 19:30 06/09/16 09:41 Hctz - PO 12.5 mg DAILY ASHLEY Administration Oxycodone HCl 5 mg 06/05/16 14:43 06/09/16 04:17 Roxicodone - PO 5 mg Q6H PRN Administration PAIN Impression 1. likely CKD 2. HTN 3. a-fib 4. liver masses 5. cellulitis 6. ascites and pleural effusion Plan pt needs a triphasic CT scan- main issue is possibility of liver mets would have GI evaluate- checlk alpha feto protein and cea if not done already ?colonoscopy add spironolactone. MV
[2016-06-09 12:28] LABS: ARTERIAL BLD GAS O2 SATURATION 90.7 % (90-98.9); ARTERIAL BLOOD GAS BASE EXCESS 0.9 meq/l (-2-2); ARTERIAL BLOOD GAS PO2 63.7 mmHg (80-100)
[2016-06-09 12:29] LABS: ALLENS TEST POSITIVE; ART PUNCT SITE LEFT BRACHIAL; LPM/O2% 3L; PT. ON O2? YES; TYPE OF O2 NASAL
--- NOTE | 2016-06-09 13:09 | PN ---
Progress Note (short form) - Note Progress Note: CC: afib s: no cp sob palps dizzy; leg pain and le edema better. s/p lasix 40 mg IV x 1 today and spironolactone with good uop. o: Current Medications Amlodipine Besylate (Norvasc -) 10 mg PO DAILY [facility] Last Admin: 06/09/16 09:42 Dose: 10 mg Amoxicillin/Clavulanate Potassium (Augmentin - 875mg Tablet) 1 tab PO BID@0800, 1730 [facility] Last Admin: 06/09/16 08:00 Dose: 1 tab Apixaban (Eliquis -) 5 mg PO BID [facility] Last Admin: 06/09/16 09:42 Dose: 5 mg Carvedilol (Coreg -) 12.5 mg PO BID [facility] Last Admin: 06/09/16 09:41 Dose: 12.5 mg Docusate Sodium (Colace -) 100 mg PO BID PRN PRN Reason: CONSTIPATION Hydrochlorothiazide (Hctz -) 12.5 mg PO DAILY [facility] Last Admin: 06/09/16 09:41 Dose: 12.5 mg Oxycodone HCl (Roxicodone -) 5 mg PO Q6H PRN PRN Reason: PAIN Last Admin: 06/09/16 04:17 Dose: 5 mg Spironolactone (Aldactone -) 50 mg PO DAILY [facility] Vital Signs - 24 hr 06/08/16 06/08/16 06/08/16 15:43 17:00 21:00 Temperature 98.6 F 98.1 F Pulse Rate 86 86 Respiratory 20 20 20 Rate Blood Pressure 144/90 147/87 O2 Sat by Pulse 92 L Oximetry (%) 06/08/16 06/09/16 06/09/16 22:00 02:13 04:56 Temperature 98 F 99.4 F Pulse Rate 92 H 93 H Respiratory 20 20 Rate Blood Pressure 149/93 125/109 O2 Sat by Pulse 97 Oximetry (%) 06/09/16 06/09/16 06/09/16 04:58 05:23 09:00 Temperature 98.5 F Pulse Rate 89 Respiratory 20 Rate Blood Pressure 159/66 O2 Sat by Pulse 92 L 94 L Oximetry (%) 06/09/16 06/09/16 10:00 10:46 Temperature 98 F Pulse Rate 86 89 Respiratory 18 Rate Blood Pressure 160/90 O2 Sat by Pulse 91 L Oximetry (%) Intake & Output 06/07/16 06/08/16 06/09/16 06/10/16 07:59 07:59 07:59 07:59 Intake Total 2780 2150 490 Output Total 750 Balance 2780 1400 490 Weight 297 lb 8 oz 299 lb Constitutional: Yes: No Distress, Obese Eyes: No: Sclera Icterus Respiratory: Yes: dulless at base on right, crackles at base on left No: Accessory Muscle Use, Rales, Wheezes Cardiovascular: Yes: Pulse Irregular JVD: yes Heart Sounds: Yes: S1, S2. No: Gallop Murmur: No: Systolic Murmur, Diastolic Murmur Extremities: No: Cold, Cyanosis Edema: Yes ( pretib/erythema), edema of pannus Integumentary: No: Jaundice Neurological: Yes: Alert, Oriented (x3) Psychiatric: No: Agitated CBC, BMP 06/07/16 06:00 06/09/16 06:00 ekg 06/02: afib (HR 117 bpm); nl axis/interv; no path q's; nonsp ST-T lateral leads (no old) ekg 06/05/16: afib, rate controlled, nl qtc, no ischemic changes telem: AFib, rate controlled, no significant bradycardia or pauses echo 05/2016: nl lv/rv, mild-mod mr, mod tr, rvsp 50-60, trivial pericardial eff CT scan: mod-large R pleural effusion with pulmonary vascular congestion. RUL infiltrate. LLL interstitial thickening. Mediastinal LAD. Subcutaneous edema. Heterogenous mass lesions in liver, possible hepatic cirrhosis. Small-mod ascites. Assessment/Plan HTN urgency: -noted to have bp up to syst 210, diast 116; -no PMD f/u, ? chronicity of hi bp in this pt -r/o renal dz contributing, incl nephrotic syndrome -carvedilol, amlodipine started here with improved bp. Aldactone started today 06/09. Diuresis as mentioned below. Would benefit from outpatient sleep study evaluation. AFib: -new dx (no prior MD f/u) -HR controlled on coreg -CHADS-VASC 1 (htn), so has indication for AC, had been on hep gtt. Now on eliquis (not ideal given BMI), but concern for compliance with INR checks on coumadin. -tsh wnl Likely acute diastolic HF exacerbation - s/p IVF and weight gain here 285 to 299 lbs today. Ascites/pleural effusions (hypoxia)/subcutaneous edema likely multifactorial, may have contribution from malignancy in addition to volume overload. - 05/22 received lasix 40 mg IV x 1 with good uop response. Will initiate standing 40 mg IV daily in addition to aldactone. Close monitoring of BMP, daily weights. renal failure, ? chronic vs acute: - h/o recent heavy nsaid use. -creat near 2, no baseline, has been stable here. Renal following. - monitor with diuresis LE edema, cellulitis: -abx per hospitalist Hepatic lesions/RUL infiltrate - eval/mgm't per pmd regarding risk of malignancy. If concern for mass in area of RUL infiltrate can hold eliquis without bridging if necessary for diagnostic intervention. Consider GI or pulm consult.
[2016-06-09] MEDS ORDERED: PT OWN MED DRAWER 7, Y5N ONE (20:30)
[2016-06-10] MEDS: oxyCODONE HCL 5 MG TABLET PO PRN ×3 (06:38→23:54)
[2016-06-10 07:47] LABS: ALBUMIN 3.2 g/dl (3.4-5.0); BILIRUBIN,TOTAL 0.9 mg/dL (0.2-1.0); CALCIUM 8.5 mg/dL (8.5-10.1); TOT PROT 5.8 g/dl (6.4-8.2)
[2016-06-10] MEDS: AMOX TR/POT CLAV 875MG/125MG TABLETS (FP) PO SCH ×2 (09:09→17:27)
[2016-06-10] MEDS: SPIRONOLACTONE 25 MG TABLET (FP) PO SCH (09:10)
[2016-06-10] MEDS: CARVEDILOL 12.5 MG TABLET (FP) PO SCH ×2 (09:10→21:46)
[2016-06-10] MEDS: FUROSEMIDE 40 MG/4 ML INJECTABLE VIAL IVPUSH SCH (09:10)
[2016-06-10] MEDS: amLODIPine BESYLATE 10 MG TABLET (FP) PO SCH (09:10)
[2016-06-10] MEDS ORDERED: PT OWN MED DRAWER 7, Y5N ONE ×2 (09:31→21:10)
[2016-06-10] MEDS: APIXABAN 5 MG TABLET PO SCH ×2 (09:34→21:46)
--- NOTE | 2016-06-10 09:40 | PN ---
Physical Exam: SUBJECTIVE: Patient seen and examined at bed side this am. Reports Orthopnea, + crackles on Right lower base. Yesterday BP 181/110 today 142/78. denies any CP, palpitations, fevers, chills, N/V/D, more confused than yesterday, slow to answer questions. OBJECTIVE: Vital Signs Period Temp Pulse Resp BP Sys/Villarreal Pulse Ox Last 24 Hr 97.5 F-98.2 F 73-99 18-18 142-185/78-110 91-95 GENERAL: The patient is awake, alert, and fully oriented, in no acute distress. sitting and eating comfortably. ENT: Pupils equal, round and reactive to light, extraocular movements intact, sclera anicteric, conjunctiva clear. Neck supple. LUNGS: Clear to auscultation bilaterally.+ decreased breath sounds bibasilay R> L, crackles Right lower lobe , No respiratory distress or use of accessory muscles. CV: Irregular rhythm, tachycardic, S1/S2, no MRG. +JVD Cap refill < 2 sec. ABDOMEN: Soft, non-distended, non-tender. EXTREMITIES: Normal range of motion. Tense LE edema bilaterally, weeping. NEUROLOGICAL: Normal speech, normal gait. CN II-XII grossly intact. PSYCH: Normal mood, normal affect. SKIN: LLE: multiple calf ulcers,weeping, erythema clear demarcations from mid foot to just below knee again decreased form yesterday more anterior erythema of legs. decreased swelling and erythema BLLE, 4 x 3 cm and 3 x 1.5cm left medial calf ulcerations, 3 x 4cm blister to left lateral calf.1+ pitting edema , pulses weak but intact B/L Laboratory Results - last 24 hr 06/08/16 06/09/16 06/10/16 05:35 12:25 05:35 Puncture Site Left brachial ABG pH 7.30 L ABG pCO2 at Pt Temp 59.0 H ABG pO2 at Pt Temp 63.7 L ABG HCO3 28.0 H ABG O2 Sat (Measured) 90.7 ABG O2 Content 15.2 ABG Base Excess 0.9 Vega Test Positive O2 Delivery Device Nasal Oxygen Flow Rate 3l PEEP 0.0 Sodium 146 H Potassium 4.4 Chloride 106 Carbon Dioxide 34 H Anion Gap 6 L BUN 26 H Creatinine 2.0 H Creat Clearance w eGFR 34.49 Random Glucose 89 Calcium 8.5 Total Bilirubin 0.9 D AST 14 L D ALT 12 D Alkaline Phosphatase 59 D Total Protein 5.8 L Albumin 3.2 L Tumor Marker AFP 2.0 Active Medications Generic Name Dose Route Start Last Admin Trade Name Freq PRN Reason Stop Dose Admin Amlodipine Besylate 10 mg 06/04/16 10:00 06/10/16 09:10 Norvasc - PO 10 mg DAILY ASHLEY Administration Amoxicillin/Clavulanate Potassium 1 tab 06/08/16 17:30 06/10/16 09:09 Augmentin - 875mg Tablet PO 1 tab BID@0800,1730 ASHLEY Administration Apixaban 5 mg 06/07/16 22:00 06/09/16 21:28 Eliquis - PO 5 mg BID ASHLEY Administration Carvedilol 12.5 mg 06/03/16 22:00 06/10/16 09:10 Coreg - PO 12.5 mg BID ASHLEY Administration Docusate Sodium 100 mg 06/05/16 14:11 06/10/16 09:11 Colace - PO 100 mg BID PRN Administration CONSTIPATION Furosemide 40 mg 06/10/16 10:00 06/10/16 09:10 Lasix Injection - IVPUSH 40 mg DAILY ASHLEY Administration Oxycodone HCl 5 mg 06/05/16 14:43 06/10/16 06:38 Roxicodone - PO 5 mg Q6H PRN Administration PAIN Spironolactone 50 mg 06/10/16 10:00 06/10/16 09:10 Aldactone - PO 50 mg DAILY ASHLEY Administration ASSESSMENT AND PLAN: 56yo M with PMH HTN presented to the ER and was admitted for further evaluation of their emergent condition 1. ASSESSMENT/PLAN: 56 year old man admitted for failed outpatient therapy for B/L lower extremity cellulitis LE Edema, acute Cellulitis, super imposed on chronic venous stasis afebrile, clinically improved. -switched to PO Augmentin 875mg po bid x7d and discharged to rehab -will recommend vascular evaluation as outpatient. -JVD on exam, vs related to irreg carotid pulsations (afib) -BNP will not be helpful with his decr'd renal fxn -HOLD lasix while observe creat trend: no sob, leg swelling and erythema improving with abx per patient, not very edematous, -percocets prn for pain control. liver mass- incidental finding on u/s of the kidneys. 2 large masses (largest 10cm), states malignancy vs hemangioma, -will need CT or MRI with contrast however in setting of CKD makes it difficult. -AFP wnl - avoid contrast study at this time per nephrology as there is a risk of JUNG with contrast administration - pt advised not to take nsaids New onset Afib: rate controlled on carvedilol -on eliquis (Anirudh vasc score 1, HbA1c 5.6). Acute hypercapnic hypoxic respiratory distress- OHS, STEPHAN with acute pleural effusion.(85% on RA improves to 94% on 3L NC). patietn appears mild confussion - -tahn normal base line today. -bipap today will obtain ABG then place bipap as likely retaining CO2. pulmonary consult. will consider thoracentesis to further evaluate effusion if malignant, in the setting of +LN and liver mass. will cont diuresis. -ABG in AM HTN-uncontrolled- protienurea-improved today . -continue spirolactone. cont coreg, norvasc and HCTZ -observe bp trend and continue to titrate 5. HTN-started on Acute Kidney Injury: unknown baseline. as per pt has not had blood work for several years. likely multifactorial from heavy NSAID use, however FeNa <1 -pt was taking NSAID's daily for the past week with decreased water intake (was drinking more juices of late) -trend cr and electrolytes as patient is on lasix -creat near 2, no known baseline cr: now stable -avoid NSAID and nephrotoxic agents thrombocytopenia, mild: -per hospitalist will monitor FEN monitor and replenish electrolyte as needed oral hydration sodium controlled diet dispo: Visit type - Emergency Visit Emergency Visit: Yes ED Registration Date: 06/02/16 Care time: The patient presented to the Emergency Department on the above date and was hospitalized for further evaluation of their emergent condition. - New Patient This patient is new to me today: No - Critical Care Critical Care patient: No
--- NOTE | 2016-06-10 12:30 | PN ---
Progress Note (short form) - Note Progress Note: RENAL Awake and alert comfortable making less urine today his urinal was full next to his bed Last Vital Signs Temp Pulse Resp BP Pulse Ox 97.5 F L 90 18 142/78 96 06/10/16 06:00 06/10/16 06:00 06/10/16 09:00 06/10/16 06:00 06/10/16 09:00 lungs decreased breath sounds at right base cvs s1s2 rr abd soft ext +edema skin has bilateral lower extremity dressings, some excoriations evidence of venous insufficiency CBC, BMP 06/07/16 06:00 06/10/16 05:35 Current Medications Generic Name Dose Route Start Last Admin Trade Name Freq PRN Reason Stop Dose Admin Amlodipine Besylate 10 mg 06/04/16 10:00 06/10/16 09:10 Norvasc - PO 10 mg DAILY ASHELY Administration Amoxicillin/Clavulanate Potassium 1 tab 06/08/16 17:30 06/10/16 09:09 Augmentin - 875mg Tablet PO 1 tab BID@0800,1730 ASHLEY Administration Apixaban 5 mg 06/07/16 22:00 06/10/16 09:34 Eliquis - PO 5 mg BID ASHLEY Administration Carvedilol 12.5 mg 06/03/16 22:00 06/10/16 09:10 Coreg - PO 12.5 mg BID ASHLEY Administration Docusate Sodium 100 mg 06/05/16 14:11 06/10/16 09:11 Colace - PO 100 mg BID PRN Administration CONSTIPATION Furosemide 40 mg 06/10/16 10:00 06/10/16 09:10 Lasix Injection - IVPUSH 40 mg DAILY ASHLEY Administration Oxycodone HCl 5 mg 06/05/16 14:43 06/10/16 06:38 Roxicodone - PO 5 mg Q6H PRN Administration PAIN Spironolactone 50 mg 06/10/16 10:00 06/10/16 09:10 Aldactone - PO 50 mg DAILY ASHLEY Administration Impression 1. likely CKD 2. HTN 3. a-fib 4. liver masses 5. cellulitis 6. ascites and pleural effusion Plan pt needs a triphasic CT scan- main issue is possibility of liver mets would have GI evaluate- afp is normal continue diuresing. Would consider tapping effusion MV
[2016-06-10 13:03] LABS: ARTERIAL BLD GAS O2 SATURATION 93.7 % (90-98.9); ARTERIAL BLOOD GAS BASE EXCESS 4.9 meq/l (-2-2); ARTERIAL BLOOD GAS HCO3 31.8 meq/L (22-26)
[2016-06-10 13:06] LABS: ARTERIAL BLOOD GAS pH 7.34 (7.35-7.45)
[2016-06-10 13:07] LABS: ALLENS TEST POSITIVE; ART PUNCT SITE LEFT RADIAL; ARTERIAL BLOOD GAS PO2 70.8 mmHg (80-100); LPM/O2% 3LPM; PT. ON O2? YES; TYPE OF O2 NASAL
--- NOTE | 2016-06-10 14:48 | PN ---
Teaching Attending Note Name of Resident: Dez Shah ATTENDING PHYSICIAN STATEMENT I saw and evaluated the patient. I reviewed the resident's note and discussed the case with the resident. I agree with the resident's findings and plan as documented. SUBJECTIVE: +orthopnea, states he has dyspnea on exertion but also feels overall weak. denies CP, fever, chills, cough Noted to be more confused than yesterday. repetitive in asking about why hes hospitalized OBJECTIVE: Last Vital Signs Temp Pulse Resp BP Pulse Ox 97.8 F 90 20 142/78 96 06/10/16 14:02 06/10/16 14:02 06/10/16 14:02 06/10/16 06:00 06/10/16 09:00 Intake & Output 06/07/16 06/08/16 06/09/16 06/10/16 23:59 23:59 23:59 23:59 Intake Total 2480 1620 620 420 Output Total 750 1450 Balance 1730 1620 620 -1030 Weight 297 lb 8 oz 299 lb 287 lb 7 oz General NAD, slightly lethargic CV S1 S2 + Lungs decreased breath sounds R mid lung field to base, L base no wheezing Abdomen obese NT/ND Extremities improved erythema B/L LE, multiple calf ulcers at various stages of healing ASSESSMENT AND PLAN: 56yo M with PMH HTN presented to the ER and was admitted for further evaluation of their emergent condition 1. Acute hypercapnic hypoxic respiratory distress- OHS, STEPHAN with acute pleural effusion.85% on RA improves to 94 on 3L NC. pt appears more confused which is a change in mental status from baseline. agrees to wear bipap, which yesterday he refused but maintained mental status. will obtain ABG then place bipap as likely retaining CO2. will call for pulmonary consult. would possibly benefit from thoracentesis to further evaluate effusion if malignant, in the setting of +LN and liver mass. will cont diuresis. (states 12 lb weight loss which is likely not accurate as pt now on different floor and used different scale) 2. B/L LE cellulitis with multiple ulcers-clinically improved. completed 7 days of unasyn now switched to augmentin for 7 day course. wound care. vascular f/u outpatient. 3. new onset afib- rate controlled on coreg. on eliquis. cardiology on board 4. liver mass-dry CT scan of the abdomen done will 11cm mass on the liver. appears to have chronic liver disease. AFP WNL. hepatitis panel pending 5. HTN- improved. started on spirolactone. cont coreg, norvasc and HCTZ 6. TANA- likely chronic. evaluated by neprhology will need outpatient follow up. monitor with lasix management. 7. DVT ppx- on eliquis 8. will need AYAZ when medically optimized.
--- NOTE | 2016-06-10 16:36 | PN ---
Progress Note (short form) - Note Progress Note: CC: afib s: no cp sob palps dizzy; good uop. o: Current Medications Amlodipine Besylate (Norvasc -) 10 mg PO DAILY [facility] Last Admin: 06/10/16 09:10 Dose: 10 mg Amoxicillin/Clavulanate Potassium (Augmentin - 875mg Tablet) 1 tab PO BID@0800, 1730 [facility] Last Admin: 06/10/16 09:09 Dose: 1 tab Apixaban (Eliquis -) 5 mg PO BID [facility] Last Admin: 06/10/16 09:34 Dose: 5 mg Carvedilol (Coreg -) 12.5 mg PO BID [facility] Last Admin: 06/10/16 09:10 Dose: 12.5 mg Docusate Sodium (Colace -) 100 mg PO BID PRN PRN Reason: CONSTIPATION Last Admin: 06/10/16 09:11 Dose: 100 mg Furosemide (Lasix Injection -) 40 mg IVPUSH DAILY [facility] Last Admin: 06/10/16 09:10 Dose: 40 mg Oxycodone HCl (Roxicodone -) 5 mg PO Q6H PRN PRN Reason: PAIN Last Admin: 06/10/16 06:38 Dose: 5 mg Spironolactone (Aldactone -) 50 mg PO DAILY [facility] Last Admin: 06/10/16 09:10 Dose: 50 mg Vital Signs - 24 hr 06/09/16 06/09/16 06/09/16 18:00 18:20 21:00 Temperature 98.0 F Pulse Rate 98 H 86 Respiratory 18 18 18 Rate Blood Pressure 185/110 166/90 O2 Sat by Pulse 95 Oximetry (%) 06/09/16 06/10/16 06/10/16 21:34 06:00 09:00 Temperature 98.2 F 97.5 F L Pulse Rate 99 H 90 Respiratory 18 18 18 Rate Blood Pressure 145/88 142/78 O2 Sat by Pulse 96 Oximetry (%) 06/10/16 14:02 Temperature 97.8 F Pulse Rate 90 Respiratory 20 Rate Blood Pressure O2 Sat by Pulse Oximetry (%) Intake & Output 06/08/16 06/09/16 06/10/16 06/11/16 07:59 07:59 07:59 07:59 Intake Total 2150 490 650 270 Output Total 750 1450 Balance 1400 490 650 -1180 Weight 297 lb 8 oz 299 lb 287 lb 7 oz Constitutional: Yes: No Distress, Obese Eyes: No: Sclera Icterus Respiratory: Yes: dulless at base on right, crackles at base on left No: Accessory Muscle Use, Rales, Wheezes Cardiovascular: Yes: Pulse Irregular JVD: yes Heart Sounds: Yes: S1, S2. No: Gallop Murmur: No: Systolic Murmur, Diastolic Murmur Extremities: No: Cold, Cyanosis Edema: Yes ( pretib/erythema), edema of pannus Integumentary: No: Jaundice Neurological: Yes: Alert, Oriented (x3) Psychiatric: No: Agitated CBC, BMP 06/07/16 06:00 06/10/16 05:35 ekg 06/02: afib (HR 117 bpm); nl axis/interv; no path q's; nonsp ST-T lateral leads (no old) ekg 06/05/16: afib, rate controlled, nl qtc, no ischemic changes off tele echo 05/2016: nl lv/rv, mild-mod mr, mod tr, rvsp 50-60, trivial pericardial eff CT scan: mod-large R pleural effusion with pulmonary vascular congestion. RUL infiltrate. LLL interstitial thickening. Mediastinal LAD. Subcutaneous edema. Heterogenous mass lesions in liver, possible hepatic cirrhosis. Small-mod ascites. Assessment/Plan HTN urgency: -noted to have bp up to syst 210, diast 116; -no PMD f/u, ? chronicity of hi bp in this pt -r/o renal dz contributing, incl nephrotic syndrome -carvedilol, amlodipine started here with improved bp. Aldactone started . Diuresis as mentioned below. Would benefit from outpatient sleep study evaluation. AFib: -new dx (no prior MD f/u) -HR controlled on coreg -CHADS-VASC 1 (htn), so has indication for AC, had been on hep gtt. Now on eliquis (not ideal given BMI), but concern for compliance with INR checks on coumadin. -tsh wnl Likely acute diastolic HF exacerbation - s/p IVF and weight gain here 285 to 299 lbs today. Ascites/pleural effusions (hypoxia)/subcutaneous edema likely multifactorial, may have contribution from malignancy in addition to volume overload. - Received lasix 40 mg IV x 1 06/09 with good uop response. Initiated standing 40 mg IV daily in addition to aldactone, continue. Close monitoring of BMP, daily weights. renal failure, ? chronic vs acute: - h/o recent heavy nsaid use. -creat near 2, no baseline, has been stable here. Renal following. - monitor with diuresis LE edema, cellulitis: -abx per hospitalist Hepatic lesions/RUL infiltrate - eval/mgm't per pmd regarding risk of malignancy. If concern for mass in area of RUL infiltrate can hold eliquis without bridging if necessary for diagnostic intervention. Reevaluate effusion/infiltrate s/p diuresis.
[2016-06-10 21:08] LABS: ARTERIAL BLD GAS O2 SATURATION 93.2 % (90-98.9); ARTERIAL BLOOD GAS BASE EXCESS 6.9 meq/l (-2-2); ARTERIAL BLOOD GAS PO2 66.5 mmHg (80-100); ARTERIAL BLOOD GAS pH 7.39 (7.35-7.45)
[2016-06-10 21:09] LABS: ALLENS TEST POSITIVE; ART PUNCT SITE RIGHT BRACHIAL; ARTERIAL BLOOD GAS HCO3 32.9 meq/L (22-26); LPM/O2% 30; PT. ON O2? YES; TYPE OF O2 BIPAP; VENT RATE 12
[2016-06-11] MEDS: oxyCODONE HCL 5 MG TABLET PO PRN (06:09)
[2016-06-11 07:40] LABS: MCH 30.4 pg (25.7-33.7); MCHC 33.6 g/dl (32.0-35.9); MEAN CELL VOLUME 90.5 fl (80-96); RDW 18.4 % (11.9-15.9); WHITE BLOOD COUNT 7.2 K/mm3 (4.0-10.0)
[2016-06-11 08:12] LABS: CALCIUM 8.1 mg/dL (8.5-10.1); CREATININE 1.7 mg/dL (0.7-1.3); MAGNESIUM 1.9 mg/dL (1.8-2.4); PHOSPHOROUS 3.2 mg/dL (2.5-4.9)
[2016-06-11] MEDS ORDERED: PT OWN MED DRAWER 7, Y5N ONE (08:13)
[2016-06-11] MEDS: AMOX TR/POT CLAV 875MG/125MG TABLETS (FP) PO SCH ×2 (08:14→17:26)
[2016-06-11 09:51] LABS: PLATELET COUNT 97 K/MM3 (134-434)
[2016-06-11 09:52] LABS: MEAN PLT VOLUME 7.4 fl (7.5-11.1); PLATELET ESTIMATE SLT DECREASED (NORMAL)
[2016-06-11] MEDS: SPIRONOLACTONE 25 MG TABLET (FP) PO SCH (10:51)
[2016-06-11] MEDS: CARVEDILOL 12.5 MG TABLET (FP) PO SCH ×2 (10:51→21:17)
[2016-06-11] MEDS: FUROSEMIDE 40 MG/4 ML INJECTABLE VIAL IVPUSH SCH (10:51)
[2016-06-11] MEDS: APIXABAN 5 MG TABLET PO SCH (10:51)
[2016-06-11] MEDS: amLODIPine BESYLATE 10 MG TABLET (FP) PO SCH (10:51)
[2016-06-11] MEDS ORDERED: POTASSIUM CHLORIDE 40 MEQ/30 ML UNIT DOSE CUP PO ONE (11:15)
--- NOTE | 2016-06-11 11:18 | PN ---
Progress Note (short form) - Note Progress Note: states he is asymptomatic. was able to tolerate bipap for 2H yesterday. denies SOB, fever, chills, cough, N/V/C/D, confusion or AMS, morning THOMPSON Current Medications Generic Name Dose Route Start Last Admin Trade Name Freq PRN Reason Stop Dose Admin Amlodipine Besylate 10 mg 06/04/16 10:00 06/11/16 10:51 Norvasc - PO 10 mg DAILY ASHLEY Administration Amoxicillin/Clavulanate Potassium 1 tab 06/08/16 17:30 06/11/16 08:14 Augmentin - 875mg Tablet PO 1 tab BID@0800,1730 ASHLEY Administration Apixaban 5 mg 06/07/16 22:00 06/11/16 10:51 Eliquis - PO 5 mg BID ASHLEY Administration Carvedilol 12.5 mg 06/03/16 22:00 06/11/16 10:51 Coreg - PO 12.5 mg BID ASHLEY Administration Docusate Sodium 100 mg 06/05/16 14:11 06/10/16 09:11 Colace - PO 100 mg BID PRN Administration CONSTIPATION Furosemide 40 mg 06/10/16 10:00 06/11/16 10:51 Lasix Injection - IVPUSH 40 mg DAILY ASHLEY Administration Oxycodone HCl 5 mg 06/05/16 14:43 06/11/16 06:09 Roxicodone - PO 5 mg Q6H PRN Administration PAIN Spironolactone 50 mg 06/10/16 10:00 06/11/16 10:51 Aldactone - PO 50 mg DAILY ASHLEY Administration Last Vital Signs Temp Pulse Resp BP Pulse Ox 97.7 F 79 18 163/82 93 L 06/11/16 10:50 06/11/16 10:50 06/11/16 10:50 06/11/16 10:50 06/10/16 21:25 Intake & Output 06/08/16 06/09/16 06/10/16 06/11/16 23:59 23:59 23:59 23:59 Intake Total 1620 620 520 100 Output Total 1450 Balance 1620 620 -930 100 Weight 297 lb 8 oz 299 lb 287 lb 7 oz 285 lb General NAD, A&Ox3 CV S1 S2 + irregular Lungs decreased breath sounds R mid lung field to base, L base no wheezing Abdomen obese NT/ND Extremities improved erythema B/L LE, multiple calf ulcers at various stages of healing ASSESSMENT AND PLAN: 56yo M with PMH HTN presented to the ER and was admitted for further evaluation of their emergent condition 1. Acute hypercapnic hypoxic respiratory distress- OHS, STEPHAN with acute pleural effusion. hypercapnia improved with bipap use. 89% on RA improves to 95% on 2L NC. may benefit from thoracentesis therapeutically as well as diagnostically to evaluate etiology as well as r/o malignancy with concerning liver mass. also may need to hold lasix going further and give intermittently given rising bicarb. already received todays dose. will hold now. Pulmonary consulted. 2. B/L LE cellulitis with multiple ulcers-clinically improved. completed 7 days of unasyn now switched to augmentin for 7 day course. wound care. vascular f/u outpatient. 3. hypokalemia- kcl 40meq 4. new onset afib- rate controlled on coreg. on eliquis. cardiology on board 5. liver mass-will need CT with contrast and further workup. this can likely be further worked up as outpatient. will wait at this time to determine if we are going to tap since if this is hemangioma may be able to evaluate that it improves with diuresis. AFP WNL. CEA/hep panel pending. 6. HTN- improved. started on spirolactone. cont coreg, norvasc and HCTZ 7. TANA- likely chronic compent. improved today. will cont to monitor. nephrology workup as outpatient. 8. DVT ppx- on eliquis 9. will need AYAZ when medically optimized. Visit type - Emergency Visit Emergency Visit: Yes ED Registration Date: 06/02/16 Care time: The patient presented to the Emergency Department on the above date and was hospitalized for further evaluation of their emergent condition. - New Patient This patient is new to me today: No - Critical Care Critical Care patient: No - Discharge Referral Referred to [facility] Med P.C.: No
--- NOTE | 2016-06-11 11:30 | CONSULT ---
Consult Consult Specialty:: PULMONARY Referred by:: CELESTINA Reason for Consultation:: CELLULITIS - History of Present Illness Chief Complaint: CELLULITIS/SOB History of Present Illness: This is a 56 year old male with no known medical problems who presents to the ED for evaluation of "cellulitis". He reports that he had a rash secondary to poison amanda several months ago. This blistered, and he scratched the area, which then became infected. He was seen at an urgent care and prescribed Clindamycin, which he took from 05/17-05/27 as prescribed. He has been attempting to treat himself by applying apple cider vinegar and baking soda, but is not improving. He presented to the ER with worsening LE pain, redness, and swelling. He denies fevers/chills or any other systemic symptoms. He denies chest pain or shortness of breath. Hospital course complicated by atrial fibrillation/HTN urgency/low platelets/renal insufficiency and increasing SOB. CT chest reveals right sided large volume pleural effusion. Stopped smoking 26 years ago, denies significant etoh abuse. Abdominal ct reveals splenomegaly and hepatic cirrhosis. - History Source History Provided By: Patient, Medical Record Limitations to Obtaining History: No Limitations - Past Medical History [employer]: No: Alzheimer's Cardio/Vascular: Yes: AFIB, HTN Pulmonary: No: O2 Dependent Renal/: Yes: Renal Inusuff Rheumatology: Yes: Gout - Alcohol/Substance Use Hx Alcohol Use: No - Smoking History Smoking history: Former smoker Have you smoked in the past 12 months: No - Social History ADL: Independent Place of : [facility] History of Recent Travel: No Home Medications - Allergies Allergies/Adverse Reactions: Allergies Allergy/AdvReac Type Severity Reaction Status Date / Time No Known Allergies Allergy Verified 06/02/16 12:34 - Home Medications Home Medications: Ambulatory Orders Colchicine [Colcrys] 0 mg PO ASDIR 06/02/16 Family Disease History - Family Disease History Family History: Unremarkable Review of Systems - Review of Systems Constitutional: denies: Fever Eyes: denies: Blind Spots HENT: denies: Difficult Swallowing Neck: denies: Decreased ROM Cardiovascular: denies: Chest Pain Respiratory: reports: SOB. denies: Hemoptysis, Wheezing Gastrointestinal: denies: Abdominal Pain Genitourinary: denies: Burning Physical Exam Vital Sings: Vital Signs Temperature 97.7 F 06/11/16 10:50 Pulse Rate 79 06/11/16 10:50 Respiratory Rate 18 06/11/16 10:50 Blood Pressure 163/82 06/11/16 10:50 O2 Sat by Pulse Oximetry (%) 93 L 06/10/16 21:25 Constitutional: Yes: Calm Eyes: Yes: EOM Intact HENT: Yes: Normocephalic Neck: Yes: Trachea Midline Cardiovascular: Yes: Pulse Irregular, S1, S2 Respiratory: Yes: Diminished (right base extending 1/2 up lung field posteriorly ), Dullness Gastrointestinal: Yes: Normal Bowel Sounds, Soft, Abdomen, Obese Edema: LLE: 3+, RLE: 3+ Neurological: Yes: Alert Psychiatric: Yes: Alert Labs: CBC, BMP 06/11/16 06:20 06/11/16 06:20 ABG Results ABG pH 7.39 (7.35-7.45) 06/10/16 21:00 ABG pCO2 at Pt Temp 55.5 mmHg (35-45) H 06/10/16 21:00 ABG pO2 at Pt Temp 66.5 mmHg (80-100) L 06/10/16 21:00 ABG HCO3 32.9 meq/L (22-26) H 06/10/16 21:00 ABG O2 Sat (Measured) 93.2 % (90-98.9) 06/10/16 21:00 ABG O2 Content 15.4 % vol (15-22) 06/10/16 21:00 ABG Base Excess 6.9 meq/l (-2-2) H 06/10/16 21:00 rest reviewed Imaging - Results Chest X-ray: Image Reviewed Cat Scan: Image Reviewed EKG: Report Reviewed Problem List - Problems (1) Acute kidney injury Code(s): N17.9 - ACUTE KIDNEY FAILURE, UNSPECIFIED (2) Cellulitis of both lower extremities Code(s): L03.115 - CELLULITIS OF RIGHT LOWER LIMB L03.116 - CELLULITIS OF LEFT LOWER LIMB (3) Hypertension Code(s): I10 - ESSENTIAL (PRIMARY) HYPERTENSION (4) New onset atrial fibrillation Code(s): I48.91 - UNSPECIFIED ATRIAL FIBRILLATION (5) Sepsis Code(s): A41.9 - SEPSIS, UNSPECIFIED ORGANISM Qualifiers: Sepsis type: sepsis due to unspecified organism Qualified Code(s): A41.9 - Sepsis, unspecified organism (6) Pleural effusion associated with hepatic disorder Code(s): K76.9 - LIVER DISEASE, UNSPECIFIED J91.8 - PLEURAL EFFUSION IN OTHER CONDITIONS CLASSIFIED ELSEWHERE Assessment/Plan Will need to hold Eliquis at least 24 hours prior to thoracentesis. Would check cytology on this large volume effusion with previous smoking hx. Low Plts likely on basis of Hypersplenism/underlying cirrhosis Will follow thank you Adan Payan MD
--- NOTE | 2016-06-11 16:39 | PN ---
Progress Note, Physician History of Present Illness: Pt seen and examined at bedside. He says he feels better. He feels that his breathing is improved today. - Current Medication List Current Medications: Active Medications Amlodipine Besylate (Norvasc -) 10 mg PO DAILY [facility] Last Admin: 06/11/16 10:51 Dose: 10 mg Amoxicillin/Clavulanate Potassium (Augmentin - 875mg Tablet) 1 tab PO BID@0800, 1730 [facility] Last Admin: 06/11/16 08:14 Dose: 1 tab Carvedilol (Coreg -) 12.5 mg PO BID [facility] Last Admin: 06/11/16 10:51 Dose: 12.5 mg Docusate Sodium (Colace -) 100 mg PO BID PRN PRN Reason: CONSTIPATION Last Admin: 06/10/16 09:11 Dose: 100 mg Oxycodone HCl (Roxicodone -) 5 mg PO Q6H PRN PRN Reason: PAIN Last Admin: 06/11/16 06:09 Dose: 5 mg Spironolactone (Aldactone -) 50 mg PO DAILY [facility] Last Admin: 06/11/16 10:51 Dose: 50 mg - Objective Vital Signs: Vital Signs Temperature 98.4 F 06/11/16 14:43 Pulse Rate 76 06/11/16 14:43 Respiratory Rate 18 06/11/16 14:43 Blood Pressure 163/82 06/11/16 10:50 O2 Sat by Pulse Oximetry (%) 96 06/11/16 10:40 Constitutional: Yes: Calm Eyes: Yes: Conjunctiva Clear HENT: Yes: Atraumatic Neck: Yes: Supple Cardiovascular: Yes: S1, S2 Respiratory: Yes: On Nasal O2 Gastrointestinal: Yes: Soft, Abdomen, Obese Genitourinary: Yes: WNL Musculoskeletal: Yes: WNL Edema: Yes Edema: LLE: 1+, RLE: 1+ Integumentary: Yes: Venous Stasis Changes Wound/Incision: Yes: Dressing Dry and Intact Neurological: Yes: Oriented Psychiatric: Yes: Oriented Labs: CBC, BMP 06/11/16 06:20 06/11/16 06:20 INR, PTT INR 1.25 (0.82-1.09) H 06/04/16 09:30 Assessment/Plan Current Medications Generic Name Dose Route Start Last Admin Trade Name Freq PRN Reason Stop Dose Admin Amlodipine Besylate 10 mg 06/04/16 10:00 06/11/16 10:51 Norvasc - PO 10 mg DAILY ASHLEY Administration Amoxicillin/Clavulanate Potassium 1 tab 06/08/16 17:30 06/11/16 08:14 Augmentin - 875mg Tablet PO 1 tab BID@0800,1730 ASHLEY Administration Carvedilol 12.5 mg 06/03/16 22:00 06/11/16 10:51 Coreg - PO 12.5 mg BID ASHLEY Administration Docusate Sodium 100 mg 06/05/16 14:11 06/10/16 09:11 Colace - PO 100 mg BID PRN Administration CONSTIPATION Oxycodone HCl 5 mg 06/05/16 14:43 06/11/16 06:09 Roxicodone - PO 5 mg Q6H PRN Administration PAIN Spironolactone 50 mg 06/10/16 10:00 06/11/16 10:51 Aldactone - PO 50 mg DAILY ASHLEY Administration Impression 1. likely CKD 2. HTN 3. a-fib 4. liver mass 5. cellulitis Plan - renal function is improving - would keep off of fluids - cont diuretics, will monitor lytes daily - avoid nsaids - pulmonary input appreciated - abx for cellulitis - he does have proteinuria, pt will need an outpt workup for CKD, this was explained at length to pt - monitor BP - will follow Dr Desai
--- NOTE | 2016-06-11 17:33 | PN ---
Progress Note (short form) - Note Progress Note: CC: afib s: no cp sob palps dizzy; good uop. o: Current Medications Amlodipine Besylate (Norvasc -) 10 mg PO DAILY [facility] Last Admin: 06/11/16 10:51 Dose: 10 mg Amoxicillin/Clavulanate Potassium (Augmentin - 875mg Tablet) 1 tab PO BID@0800, 1730 [facility] Last Admin: 06/11/16 17:26 Dose: 1 tab Carvedilol (Coreg -) 12.5 mg PO BID [facility] Last Admin: 06/11/16 10:51 Dose: 12.5 mg Docusate Sodium (Colace -) 100 mg PO BID PRN PRN Reason: CONSTIPATION Last Admin: 06/10/16 09:11 Dose: 100 mg Oxycodone HCl (Roxicodone -) 5 mg PO Q6H PRN PRN Reason: PAIN Last Admin: 06/11/16 06:09 Dose: 5 mg Spironolactone (Aldactone -) 50 mg PO DAILY [facility] Last Admin: 06/11/16 10:51 Dose: 50 mg Vital Signs - 24 hr 06/10/16 06/10/16 06/10/16 19:18 20:35 20:37 Temperature 98.4 F 98.2 F Pulse Rate 66 93 H Respiratory 18 18 20 Rate Blood Pressure 137/83 136/93 O2 Sat by Pulse 96 Oximetry (%) 06/10/16 06/10/16 06/11/16 21:10 21:25 05:58 Temperature 98.3 F Pulse Rate 85 85 Respiratory 20 Rate Blood Pressure 147/94 O2 Sat by Pulse 93 L 93 L Oximetry (%) 06/11/16 06/11/16 06/11/16 09:00 10:30 10:40 Temperature Pulse Rate 82 Respiratory Rate Blood Pressure O2 Sat by Pulse 94 L 96 96 Oximetry (%) 06/11/16 06/11/16 06/11/16 10:50 14:43 17:22 Temperature 97.7 F 98.4 F Pulse Rate 79 76 74 Respiratory 18 18 18 Rate Blood Pressure 163/82 141/86 O2 Sat by Pulse Oximetry (%) Intake & Output 06/09/16 06/10/16 06/11/16 06/12/16 07:59 07:59 07:59 07:59 Intake Total 490 650 470 250 Output Total 1450 1100 Balance 490 650 -980 -850 Weight 299 lb 287 lb 7 oz 285 lb Constitutional: Yes: No Distress, Obese Eyes: No: Sclera Icterus Respiratory: Yes: dulless at base on right, crackles at base on left No: Accessory Muscle Use, Rales, Wheezes Cardiovascular: Yes: Pulse Irregular JVD: yes Heart Sounds: Yes: S1, S2. No: Gallop Murmur: No: Systolic Murmur, Diastolic Murmur Extremities: No: Cold, Cyanosis Edema: Yes (1+ pretib/erythema), trace edema of pannus Integumentary: No: Jaundice Neurological: Yes: Alert, Oriented (x3) Psychiatric: No: Agitated CBC, BMP 06/11/16 06:20 06/11/16 06:20 ekg 06/02: afib (HR 117 bpm); nl axis/interv; no path q's; nonsp ST-T lateral leads (no old) ekg 06/05/16: afib, rate controlled, nl qtc, no ischemic changes off tele echo 05/2016: nl lv/rv, mild-mod mr, mod tr, rvsp 50-60, trivial pericardial eff CT scan: mod-large R pleural effusion with pulmonary vascular congestion. RUL infiltrate. LLL interstitial thickening. Mediastinal LAD. Subcutaneous edema. Heterogenous mass lesions in liver, possible hepatic cirrhosis. Small-mod ascites. Assessment/Plan HTN urgency: -noted to have bp up to syst 210, diast 116; -no PMD f/u, ? chronicity of hi bp in this pt -r/o renal dz contributing, incl nephrotic syndrome -carvedilol, amlodipine started here with improved bp. Aldactone started . Diuresis as mentioned below. Would benefit from outpatient sleep study evaluation. AFib: -new dx (no prior MD f/u) -HR controlled on coreg -CHADS-VASC 1 (htn), so has indication for AC, had been on hep gtt. Now on eliquis (not ideal given BMI), but concern for compliance with INR checks on coumadin. Held in preparation for thoracentesis. - platelets trending down, con't to monitor. -tsh wnl Likely acute diastolic HF exacerbation - s/p IVF and weight gain here 285 to 299 lbs. Ascites/pleural effusions ( hypoxia)/subcutaneous edema likely from volume overload. Although, malignancy work up ongoing. - Received lasix 40 mg IV x 1 06/09 with good uop response. Initiated standing 40 mg IV daily in addition to aldactone, continue. Close monitoring of BMP, daily weights. renal failure, ? chronic vs acute: - h/o recent heavy nsaid use. -creat near 2, no baseline, has been stable here. Renal following. - monitor with diuresis LE edema, cellulitis: -abx per hospitalist Hepatic lesions/RUL infiltrate - eval/mgm't per pmd regarding risk of malignancy. Holding eliquis without bridging in preparation for diagnostic intervention. Reevaluate effusion/ infiltrate s/p diuresis.
[2016-06-12] MEDS ORDERED: amLODIPine BESYLATE 10 MG TABLET (FP) PO ONE (06:40)
[2016-06-12 07:12] LABS: MCH 29.9 pg (25.7-33.7); MCHC 33.3 g/dl (32.0-35.9); MEAN CELL VOLUME 89.9 fl (80-96); MEAN PLT VOLUME 7.3 fl (7.5-11.1); PLATELET COUNT 101 K/MM3 (134-434); RDW 18.4 % (11.9-15.9); WHITE BLOOD COUNT 7.7 K/mm3 (4.0-10.0)
[2016-06-12 07:41] LABS: CALCIUM 8.5 mg/dL (8.5-10.1); CREATININE 1.6 mg/dL (0.7-1.3)
[2016-06-12 09:23] LABS: INR 1.46 (0.82-1.09); PROTHROMBIN TIME (PATIENT) 16.2 SEC (9.98-11.88)
[2016-06-12] MEDS ORDERED: FUROSEMIDE 40 MG/4 ML INJECTABLE VIAL IVPUSH SCH (10:00)
[2016-06-12] MEDS ORDERED: PT OWN MED DRAWER 7, Y5N ONE ×3 (10:17→21:17)
[2016-06-12] MEDS: CARVEDILOL 12.5 MG TABLET (FP) PO SCH (10:19)
[2016-06-12] MEDS: SPIRONOLACTONE 25 MG TABLET (FP) PO SCH (10:19)
[2016-06-12] MEDS: AMOX TR/POT CLAV 875MG/125MG TABLETS (FP) PO SCH ×3 (10:20→22:04)
--- NOTE | 2016-06-12 10:42 | PN ---
Progress Note (short form) - Note Progress Note: Reports breathing feels OK. Was hypoxic requiring supplemental O2. Unsure if he wants thoracentesis. Risks and benefits were explained in detail. Some dry cough. No CP. Intake & Output 06/09/16 06/10/16 06/11/16 06/12/16 23:59 23:59 23:59 23:59 Intake Total 620 520 450 100 Output Total 1450 1100 Balance 620 -930 -650 100 Weight 299 lb 287 lb 7 oz 285 lb 267 lb 2 oz Last Vital Signs Temp Pulse Resp BP Pulse Ox 98 F 76 18 171/97 96 06/12/16 06:53 06/12/16 06:53 06/12/16 06:53 06/12/16 06:53 06/11/16 10:40 Active Medications Amlodipine Besylate (Norvasc -) 10 mg PO DAILY [facility] Last Admin: 06/11/16 10:51 Dose: 10 mg Amoxicillin/Clavulanate Potassium (Augmentin - 875mg Tablet) 1 tab PO BID@0800, 1730 [facility] Last Admin: 06/12/16 10:20 Dose: 1 tab Carvedilol (Coreg -) 12.5 mg PO BID [facility] Last Admin: 06/12/16 10:19 Dose: 12.5 mg Docusate Sodium (Colace -) 100 mg PO BID PRN PRN Reason: CONSTIPATION Last Admin: 06/10/16 09:11 Dose: 100 mg Furosemide (Lasix Injection -) 40 mg IVPUSH DAILY [facility] Last Admin: 06/12/16 10:19 Dose: 40 mg Oxycodone HCl (Roxicodone -) 5 mg PO Q6H PRN PRN Reason: PAIN Last Admin: 06/11/16 06:09 Dose: 5 mg Spironolactone (Aldactone -) 50 mg PO DAILY [facility] Last Admin: 06/12/16 10:19 Dose: 50 mg Constitutional: Yes: NAD Eyes: Yes: EOM Intact HENT: Yes: Normocephalic Neck: Yes: Trachea Midline Cardiovascular: Yes: Pulse Irregular, S1, S2 Respiratory: Yes: Diminished at the right base Gastrointestinal: Yes: Normal Bowel Sounds, Soft, Abdomen, Obese Edema: LLE: 3+, RLE: 3+ Neurological: Yes: Alert Psychiatric: Yes: Alert Labs: Laboratory Results - last 24 hr 06/12/16 06/12/16 06/12/16 06:00 06:00 08:59 WBC 7.7 RBC 4.29 Hgb 12.8 Hct 38.5 MCV 89.9 MCHC 33.3 RDW 18.4 H Plt Count 101 L MPV 7.3 L INR 1.46 H Sodium 146 H Potassium 3.9 Chloride 99 Carbon Dioxide 39 H Anion Gap 8 BUN 22 H Creatinine 1.6 H Random Glucose 87 Calcium 8.5 Problem List - Problems (1) Acute kidney injury Code(s): N17.9 - ACUTE KIDNEY FAILURE, UNSPECIFIED (2) Cellulitis of both lower extremities Code(s): L03.115 - CELLULITIS OF RIGHT LOWER LIMB L03.116 - CELLULITIS OF LEFT LOWER LIMB (3) Hypertension Code(s): I10 - ESSENTIAL (PRIMARY) HYPERTENSION (4) New onset atrial fibrillation Code(s): I48.91 - UNSPECIFIED ATRIAL FIBRILLATION (5) Sepsis Code(s): A41.9 - SEPSIS, UNSPECIFIED ORGANISM Qualifiers: Sepsis type: sepsis due to unspecified organism Qualified Code(s): A41.9 - Sepsis, unspecified organism (6) Pleural effusion associated with hepatic disorder Code(s): K76.9 - LIVER DISEASE, UNSPECIFIED J91.8 - PLEURAL EFFUSION IN OTHER CONDITIONS CLASSIFIED ELSEWHERE Assessment/Plan Patient asked for a additional time to consider risks and benefits of thoracentesis. O2 as needed Lasix/Spironolactone Will follow Dr Okeefe
--- NOTE | 2016-06-12 11:45 | PN ---
Progress Note, Physician History of Present Illness: Pt seen and examined at bedside. He is awake and alert. He denies shortness of breath. - Current Medication List Current Medications: Active Medications Amlodipine Besylate (Norvasc -) 10 mg PO DAILY [facility] Last Admin: 06/11/16 10:51 Dose: 10 mg Amoxicillin/Clavulanate Potassium (Augmentin - 875mg Tablet) 1 tab PO BID@0800, 1730 [facility] Last Admin: 06/12/16 10:20 Dose: 1 tab Carvedilol (Coreg -) 12.5 mg PO BID [facility] Last Admin: 06/12/16 10:19 Dose: 12.5 mg Docusate Sodium (Colace -) 100 mg PO BID PRN PRN Reason: CONSTIPATION Last Admin: 06/10/16 09:11 Dose: 100 mg Furosemide (Lasix Injection -) 40 mg IVPUSH DAILY [facility] Last Admin: 06/12/16 10:19 Dose: 40 mg Oxycodone HCl (Roxicodone -) 5 mg PO Q6H PRN PRN Reason: PAIN Last Admin: 06/11/16 06:09 Dose: 5 mg Spironolactone (Aldactone -) 50 mg PO DAILY [facility] Last Admin: 06/12/16 10:19 Dose: 50 mg - Objective Vital Signs: Vital Signs Temperature 98 F 06/12/16 06:53 Pulse Rate 76 06/12/16 06:53 Respiratory Rate 18 06/12/16 06:53 Blood Pressure 171/97 06/12/16 06:53 O2 Sat by Pulse Oximetry (%) 96 06/11/16 10:40 Constitutional: Yes: Calm Eyes: Yes: Conjunctiva Clear HENT: Yes: Atraumatic Cardiovascular: Yes: S1, S2 Respiratory: Yes: On Nasal O2 Gastrointestinal: Yes: Soft, Abdomen, Obese Genitourinary: Yes: WNL Musculoskeletal: Yes: WNL Edema: Yes Edema: LLE: 1+, RLE: 1+ Integumentary: Yes: Skin Tear, Venous Stasis Changes Neurological: Yes: Oriented Psychiatric: Yes: Oriented Labs: CBC, BMP 06/12/16 06:00 06/12/16 06:00 INR, PTT INR 1.46 (0.82-1.09) H 06/12/16 08:59 Assessment/Plan Current Medications Generic Name Dose Route Start Last Admin Trade Name Freq PRN Reason Stop Dose Admin Amlodipine Besylate 10 mg 06/04/16 10:00 06/11/16 10:51 Norvasc - PO 10 mg DAILY [facility] Administration Amoxicillin/Clavulanate Potassium 1 tab 06/08/16 17:30 06/12/16 10:20 Augmentin - 875mg Tablet PO 1 tab BID@0800,1730 [facility] Administration Carvedilol 12.5 mg 06/03/16 22:00 06/12/16 10:19 Coreg - PO 12.5 mg BID [facility] Administration Docusate Sodium 100 mg 06/05/16 14:11 06/10/16 09:11 Colace - PO 100 mg BID PRN Administration CONSTIPATION Furosemide 40 mg 06/12/16 10:00 06/12/16 10:19 Lasix Injection - IVPUSH 40 mg DAILY [facility] Administration Oxycodone HCl 5 mg 06/05/16 14:43 06/11/16 06:09 Roxicodone - PO 5 mg Q6H PRN Administration PAIN Spironolactone 50 mg 06/10/16 10:00 06/12/16 10:19 Aldactone - PO 50 mg DAILY [facility] Administration Impression 1. likely CKD 2. HTN 3. a-fib 4. liver mass 5. cellulitis Plan - renal function is stabilizing - consider changing lasix to PO - repeat labs in am - avoid nsaids - abx for cellulitis - he does have proteinuria, pt will need an outpt workup for CKD - thoracocentesis possibly today - monitor BP - will follow Dr Desai
[2016-06-12] MEDS: oxyCODONE HCL 5 MG TABLET PO PRN (15:42)
--- NOTE | 2016-06-12 17:29 | PN ---
Physical Exam: SUBJECTIVE: Patient seen and examined at bed side. reports feeling, breathing, swelling, pain legs is better. Was hypoxic ssturing 87% on RA, requiring supplemental O2. Patient asked for further time to think about thoracentesis. Risks and benefits were explained in detail. patient agree to do the procedure tomorrow. denies any CP, palpitations, fevers, chills, N/V/D, OBJECTIVE: Vital Signs Period Temp Pulse Resp BP Sys/Villarreal Pulse Ox Last 24 Hr 97.3 F-98.3 F 76-86 18-18 143-174/92-101 93 GENERAL: The patient is awake, alert, and fully oriented, in no acute distress. sitting comfortably. ENT: Pupils equal, round and reactive to light, extraocular movements intact, sclera anicteric, conjunctiva clear. Neck supple. LUNGS: Clear to auscultation bilaterally.+ decreased breath sounds bibasilay R> L, crackles Right lower lobe , No respiratory distress or use of accessory muscles. CV: Irregular rhythm, tachycardic, S1/S2, no MRG. +JVD Cap refill < 2 sec. ABDOMEN: Soft, non-distended, non-tender. EXTREMITIES: Normal range of motion. Tense LE edema bilaterally, weeping. NEUROLOGICAL: Normal speech, normal gait. CN II-XII grossly intact. PSYCH: Normal mood, normal affect. SKIN: LLE: multiple calf ulcers,weeping, erythema clear demarcations from mid foot to just below knee again decreased form yesterday more anterior erythema of legs. decreased swelling and erythema BLLE, 4 x 3 cm and 3 x 1.5cm left medial calf ulcerations, 3 x 4cm blister to left lateral calf.1+ pitting edema , pulses weak but intact B/L, less swelling and edema bilateral legs than yesterday. Laboratory Results - last 24 hr 06/12/16 06/12/16 06/12/16 06:00 06:00 08:59 WBC 7.7 RBC 4.29 Hgb 12.8 Hct 38.5 MCV 89.9 MCHC 33.3 RDW 18.4 H Plt Count 101 L MPV 7.3 L INR 1.46 H Sodium 146 H Potassium 3.9 Chloride 99 Carbon Dioxide 39 H Anion Gap 8 BUN 22 H Creatinine 1.6 H Random Glucose 87 Calcium 8.5 Active Medications Generic Name Dose Route Start Last Admin Trade Name Freq PRN Reason Stop Dose Admin Amlodipine Besylate 10 mg 06/04/16 10:00 06/11/16 10:51 Norvasc - PO 10 mg DAILY [facility] Administration Amoxicillin/Clavulanate Potassium 1 tab 06/08/16 17:30 06/12/16 10:20 Augmentin - 875mg Tablet PO 1 tab BID@0800,1730 [facility] Administration Carvedilol 12.5 mg 06/03/16 22:00 06/12/16 10:19 Coreg - PO 12.5 mg BID [facility] Administration Docusate Sodium 100 mg 06/05/16 14:11 06/10/16 09:11 Colace - PO 100 mg BID PRN Administration CONSTIPATION Furosemide 40 mg 06/13/16 10:00 Lasix - PO DAILY [facility] Oxycodone HCl 5 mg 06/05/16 14:43 06/12/16 15:42 Roxicodone - PO 5 mg Q6H PRN Administration PAIN Spironolactone 50 mg 06/10/16 10:00 06/12/16 10:19 Aldactone - PO 50 mg DAILY [facility] Administration ASSESSMENT/PLAN: 56 year old man admitted for failed outpatient therapy for B/L lower extremity cellulitis Acute hypercapnic hypoxic respiratory distress- OHS, STEPHAN with acute pleural effusion.(87% on RA improves to 95% on 3L NC). -bipap today will obtain ABG then place bipap as likely retaining CO2. patient agreed to thoracentesis tomorrow to further evaluate effusion if malignant, in the setting of +LN and liver mass. will cont diuresis switched lasix to PO LE Edema, acute Cellulitis, super imposed on chronic venous stasis afebrile, clinically improved. -switched to PO Augmentin 875mg po bid x7d (D3) -will recommend vascular evaluation as outpatient. liver mass- incidental finding on u/s of the kidneys. 2 large masses (largest 10cm), states malignancy vs hemangioma, -will need CT or MRI with contrast however in setting of CKD makes it difficult. -AFP wnl - avoid contrast study at this time per nephrology as there is a risk of JUNG with contrast administration - pt advised not to take nsaids New onset Afib: rate controlled on carvedilol -on eliquis (Anirudh vasc score 1, HbA1c 5.6). HTN-uncontrolled- protienurea-improved today . -continue spirolactone. cont coreg, norvasc -observe bp trend and continue to titrate -inc Carvedilol per nephrology Acute on chronic Kidney Injury: renal function is stabilizing, as per pt has not had blood work for several years. likely multifactorial from heavy NSAID use , -pt was taking NSAID's daily for the past week with decreased water intake (was drinking more juices of late) -avoid NSAID and nephrotoxic agents -changing lasix to PO -repeat labs in am -proteinuria, pt will need an outpt workup for CKD thrombocytopenia, mild: -per hospitalist will monitor FEN monitor and replenish electrolyte as needed oral hydration sodium controlled diet Visit type - Emergency Visit Emergency Visit: Yes ED Registration Date: 06/02/16 Care time: The patient presented to the Emergency Department on the above date and was hospitalized for further evaluation of their emergent condition. - New Patient This patient is new to me today: No - Critical Care Critical Care patient: No
--- NOTE | 2016-06-12 17:54 | PN ---
Teaching Attending Note Name of Resident: Dez Shah ATTENDING PHYSICIAN STATEMENT I saw and evaluated the patient. I reviewed the resident's note and discussed the case with the resident. I agree with the resident's findings and plan as documented. SUBJECTIVE: seen and evaluated at the bedside OBJECTIVE: resting comfortably in bed ASSESSMENT AND PLAN: 56yo M with PMH HTN admitted for B/L lower extremity cellulitis B/L LE cellulitis -clinically improved -completed 7 days of unasyn now switched to augmentin for 7 day course -wound care and vascular f/u as outpatient Acute hypercapnic hypoxic respiratory failure -moderate to large right sided pleural effusion seen on CT chest -for thoracentesis therapeutically as well as diagnostically to evaluate etiology as well as r/o malignancy with concerning liver mass -hypercapnia improved with bipap use. 89% on RA improves to 95% on 2L NC new onset afib -rate controlled on coreg -on eliquis liver mass -will need CT with contrast and further workup. this can likely be further worked up as outpatient as pt's renal function has just started improving -AFP WNL. CEA/hep panel pending. HTN - improved. started on spirolactone. cont coreg, norvasc and HCTZ TANA -likely chronic compent. -improved today. will cont to monitor -nephrology workup as outpatient. DVT ppx - on eliquis
[2016-06-12] MEDS: CARVEDILOL 25 MG TABLET (FP) PO SCH (18:18)
[2016-06-13 00:06] LABS: HBeAG Negative (Negative); HEP B SURFACE AB Non Reactive (.); HEP BE AB Negative (Negative)
[2016-06-13 07:26] LABS: INR 1.38 (0.82-1.09); PROTHROMBIN TIME (PATIENT) 15.3 SEC (9.98-11.88)
[2016-06-13] MEDS ORDERED: PT OWN MED DRAWER 7, Y5N ONE ×2 (07:30→18:06)
[2016-06-13 07:39] LABS: ALBUMIN 3.3 g/dl (3.4-5.0); BILIRUBIN,TOTAL 1.2 mg/dL (0.2-1.0); CALCIUM 8.6 mg/dL (8.5-10.1); CREATININE 1.4 mg/dL (0.7-1.3); TOT PROT 6.1 g/dl (6.4-8.2)
[2016-06-13] MEDS: CARVEDILOL 25 MG TABLET (FP) PO SCH ×2 (09:11→21:42)
[2016-06-13] MEDS: FUROSEMIDE 40 MG TABLET (FP) PO SCH (09:11)
[2016-06-13] MEDS: SPIRONOLACTONE 25 MG TABLET (FP) PO SCH (09:11)
[2016-06-13] MEDS: amLODIPine BESYLATE 10 MG TABLET (FP) PO SCH (09:11)
[2016-06-13] MEDS: AMOX TR/POT CLAV 875MG/125MG TABLETS (FP) PO SCH ×2 (09:12→18:09)
[2016-06-13 12:21] LABS: GLUCOSE,PLEURAL FLUID 98.753; SGOT/AST 6 U/L (15-37); SGPT/ALT < 6 U/L (12-78); TOTAL PROTEIN,PLEURAL FLUID 2.382
[2016-06-13 12:22] LABS: ALK PHOS 13 U/L (45-117)
[2016-06-13 12:28] LABS: CHLORIDE PLEURAL FLUID 102
[2016-06-13 13:23] LABS: PLEURAL FLUID APPEARANCE CLEAR; PLEURAL FLUID COLOR COLORLESS; PLEURAL FLUID SOURCE PLURAL FLUID
[2016-06-13 13:24] LABS: PLEURAL FLUID LYMPHOCYTES 6 %; PLEURAL FLUID NEUTROPHIL 8 %
--- NOTE | 2016-06-13 14:47 | PN ---
Progress Note, Physician - Current Medication List Current Medications: Active Medications Amlodipine Besylate (Norvasc -) 10 mg PO DAILY [facility] Last Admin: 06/13/16 09:11 Dose: 10 mg Amoxicillin/Clavulanate Potassium (Augmentin - 875mg Tablet) 1 tab PO BID@0800, 1730 [facility] Last Admin: 06/13/16 09:12 Dose: 1 tab Carvedilol (Coreg -) 25 mg PO BID [facility] Last Admin: 06/13/16 09:11 Dose: 25 mg Docusate Sodium (Colace -) 100 mg PO BID PRN PRN Reason: CONSTIPATION Last Admin: 06/10/16 09:11 Dose: 100 mg Furosemide (Lasix -) 40 mg PO DAILY [facility] Last Admin: 06/13/16 09:11 Dose: 40 mg Oxycodone HCl (Roxicodone -) 5 mg PO Q6H PRN PRN Reason: PAIN Last Admin: 06/12/16 15:42 Dose: 5 mg Spironolactone (Aldactone -) 50 mg PO DAILY [facility] Last Admin: 06/13/16 09:11 Dose: 50 mg - Objective Vital Signs: Vital Signs Temperature 97.9 F 06/13/16 09:48 Pulse Rate 79 06/13/16 09:49 Respiratory Rate 18 06/13/16 09:49 Blood Pressure 159/108 06/13/16 09:49 O2 Sat by Pulse Oximetry (%) 94 L 06/13/16 09:00 Constitutional: Yes: Well Nourished, No Distress, Calm Eyes: Yes: WNL, Conjunctiva Clear HENT: Yes: WNL, Atraumatic, Normocephalic Neck: Yes: WNL, Supple, Trachea Midline Cardiovascular: Yes: WNL, Regular Rate and Rhythm Respiratory: Yes: WNL, Regular, CTA Bilaterally Gastrointestinal: Yes: WNL, Normal Bowel Sounds Musculoskeletal: Yes: WNL Extremities: Yes: WNL Edema: No Integumentary: Yes: WNL Neurological: Yes: WNL, Alert, Oriented ...Motor Strength: WNL Psychiatric: Yes: WNL Labs: CBC, BMP 06/12/16 06:00 06/13/16 06:00 INR, PTT INR 1.38 (0.82-1.09) H 06/13/16 06:00 Impression/Plan Impression/Plan: ASSESSMENT AND PLAN: 56yo M with PMH HTN admitted for B/L lower extremity cellulitis B/L LE cellulitis -clinically improved -completed 7 days of unasyn now switched to augmentin for 7 day course -wound care and vascular f/u as outpatient Acute hypercapnic hypoxic respiratory failure -moderate to large right sided pleural effusion seen on CT chest -s/p thoracentesis; follow up pleural fluid analysis -hypercapnia improved with bipap use. 89% on RA improves to 95% on 2L NC new onset afib -rate controlled on coreg -on eliquis liver mass -will need CT with contrast and further workup. this can likely be further worked up as outpatient as pt's renal function has just started improving -AFP WNL. CEA/hep panel pending. HTN - improved. started on spirolactone. cont coreg, norvasc and HCTZ TANA -likely chronic compent. -continued improvement today. will cont to monitor -nephrology workup as outpatient. DVT ppx - on eliquis Visit type - Emergency Visit Emergency Visit: Yes ED Registration Date: 06/02/16 Care time: The patient presented to the Emergency Department on the above date and was hospitalized for further evaluation of their emergent condition. - New Patient This patient is new to me today: No - Critical Care Critical Care patient: No
--- NOTE | 2016-06-13 15:11 | PN ---
Progress Note (short form) - Note Progress Note: PULMONARY s/p right thoracentesis draining 1.5L serous fluid. Pt reports improvement in dyspnea. Last Vital Signs Temp Pulse Resp BP Pulse Ox 97.9 F 65 18 147/79 94 L 06/13/16 15:01 06/13/16 15:01 06/13/16 15:01 06/13/16 15:01 06/13/16 09:00 Gen: NAD at rest Heart: RRR Lung: right base rales Abd: soft, nontender Ext: no edema CBC, BMP 06/12/16 06:00 06/13/16 06:00 Active Medications Amlodipine Besylate (Norvasc -) 10 mg PO DAILY [facility] Last Admin: 06/13/16 09:11 Dose: 10 mg Amoxicillin/Clavulanate Potassium (Augmentin - 875mg Tablet) 1 tab PO BID@0800, 1730 [facility] Last Admin: 06/13/16 09:12 Dose: 1 tab Apixaban (Eliquis -) 5 mg PO BID [facility] Carvedilol (Coreg -) 25 mg PO BID [facility] Last Admin: 06/13/16 09:11 Dose: 25 mg Docusate Sodium (Colace -) 100 mg PO BID PRN PRN Reason: CONSTIPATION Last Admin: 06/10/16 09:11 Dose: 100 mg Furosemide (Lasix -) 40 mg PO DAILY [facility] Last Admin: 06/13/16 09:11 Dose: 40 mg Oxycodone HCl (Roxicodone -) 5 mg PO Q6H PRN PRN Reason: PAIN Last Admin: 06/12/16 15:42 Dose: 5 mg Spironolactone (Aldactone -) 50 mg PO DAILY [facility] Last Admin: 06/13/16 09:11 Dose: 50 mg A/P Pleural Effusion s/p right thoracentesis Atrial Fibrillation Pulmonary HTN Liver Mass HTN Cellulitis - f/u pleural fluid chemistries, cultures and cytology - continue lasix, aldactone - rate controlled - continue anticoagulation - OOB to chair
[2016-06-13] MEDS ORDERED: POTASSIUM CHLORIDE TABS 20 MEQ TABLET.ER (FP) PO ONE (16:31)
--- NOTE | 2016-06-13 16:31 | PN ---
Progress Note, Physician History of Present Illness: Pt seen and examined at bedside. He is awake and alert. He has the thoracocentesis today. - Current Medication List Current Medications: Active Medications Amlodipine Besylate (Norvasc -) 10 mg PO DAILY [facility] Last Admin: 06/13/16 09:11 Dose: 10 mg Amoxicillin/Clavulanate Potassium (Augmentin - 875mg Tablet) 1 tab PO BID@0800, 1730 [facility] Last Admin: 06/13/16 09:12 Dose: 1 tab Apixaban (Eliquis -) 5 mg PO BID [facility] Carvedilol (Coreg -) 25 mg PO BID [facility] Last Admin: 06/13/16 09:11 Dose: 25 mg Docusate Sodium (Colace -) 100 mg PO BID PRN PRN Reason: CONSTIPATION Last Admin: 06/10/16 09:11 Dose: 100 mg Furosemide (Lasix -) 40 mg PO DAILY [facility] Last Admin: 06/13/16 09:11 Dose: 40 mg Oxycodone HCl (Roxicodone -) 5 mg PO Q6H PRN PRN Reason: PAIN Last Admin: 06/12/16 15:42 Dose: 5 mg Spironolactone (Aldactone -) 50 mg PO DAILY [facility] Last Admin: 06/13/16 09:11 Dose: 50 mg - Objective Vital Signs: Vital Signs Temperature 97.9 F 06/13/16 15:01 Pulse Rate 65 06/13/16 15:01 Respiratory Rate 18 06/13/16 15:01 Blood Pressure 147/79 06/13/16 15:01 O2 Sat by Pulse Oximetry (%) 94 L 06/13/16 09:00 Constitutional: Yes: Calm Eyes: Yes: Conjunctiva Clear HENT: Yes: Atraumatic Neck: Yes: Supple Cardiovascular: Yes: S1, S2 Respiratory: Yes: CTA Bilaterally Gastrointestinal: Yes: Normal Bowel Sounds, Soft Genitourinary: Yes: WNL Musculoskeletal: Yes: WNL Edema: Yes Integumentary: Yes: Venous Stasis Changes, Other (cellulitis) Wound/Incision: Yes: Dressing Dry and Intact Neurological: Yes: Oriented Labs: CBC, BMP 06/12/16 06:00 06/13/16 06:00 INR, PTT INR 1.38 (0.82-1.09) H 06/13/16 06:00 Assessment/Plan Current Medications Generic Name Dose Route Start Last Admin Trade Name Adolfo PRN Reason Stop Dose Admin Amlodipine Besylate 10 mg 06/04/16 10:00 06/13/16 09:11 Norvasc - PO 10 mg DAILY [facility] Administration Amoxicillin/Clavulanate Potassium 1 tab 06/08/16 17:30 06/13/16 09:12 Augmentin - 875mg Tablet PO 1 tab BID@0800,1730 [facility] Administration Apixaban 5 mg 06/14/16 10:00 Eliquis - PO BID [facility] Carvedilol 25 mg 06/12/16 18:15 06/13/16 09:11 Coreg - PO 25 mg BID [facility] Administration Docusate Sodium 100 mg 06/05/16 14:11 06/10/16 09:11 Colace - PO 100 mg BID PRN Administration CONSTIPATION Furosemide 40 mg 06/13/16 10:00 06/13/16 09:11 Lasix - PO 40 mg DAILY [facility] Administration Oxycodone HCl 5 mg 06/05/16 14:43 06/12/16 15:42 Roxicodone - PO 5 mg Q6H PRN Administration PAIN Spironolactone 50 mg 06/10/16 10:00 06/13/16 09:11 Aldactone - PO 50 mg DAILY [facility] Administration Impression 1. likely CKD 2. HTN 3. a-fib 4. liver mass 5. cellulitis Plan - creatinine continues to improve - cont with diuretics - repeat labs in am - follow cytology - replace potassium - avoid nsaids - abx for cellulitis - he does have proteinuria, pt will need an outpt workup for CKD - monitor BP - will follow Dr Desai
--- NOTE | 2016-06-13 19:05 | PN ---
Progress Note (short form) - Note Progress Note: CC: afib s: no cp sob palps dizzy; switched to po lasix today. s/p thoracentesis today , has noticed improvement in breathing. o: Current Medications Amlodipine Besylate (Norvasc -) 10 mg PO DAILY [facility] Last Admin: 06/13/16 09:11 Dose: 10 mg Amoxicillin/Clavulanate Potassium (Augmentin - 875mg Tablet) 1 tab PO BID@0800, 1730 [facility] Last Admin: 06/13/16 18:09 Dose: 1 tab Apixaban (Eliquis -) 5 mg PO BID [facility] Carvedilol (Coreg -) 25 mg PO BID [facility] Last Admin: 06/13/16 09:11 Dose: 25 mg Docusate Sodium (Colace -) 100 mg PO BID PRN PRN Reason: CONSTIPATION Last Admin: 06/10/16 09:11 Dose: 100 mg Furosemide (Lasix -) 40 mg PO DAILY [facility] Last Admin: 06/13/16 09:11 Dose: 40 mg Oxycodone HCl (Roxicodone -) 5 mg PO Q6H PRN PRN Reason: PAIN Last Admin: 06/12/16 15:42 Dose: 5 mg Spironolactone (Aldactone -) 50 mg PO DAILY [facility] Last Admin: 06/13/16 09:11 Dose: 50 mg Vital Signs - 24 hr 06/12/16 06/12/16 06/13/16 21:00 22:00 02:54 Temperature 98 F 98.5 F Pulse Rate 72 75 Respiratory 20 20 Rate Blood Pressure 159/90 127/76 O2 Sat by Pulse 94 L Oximetry (%) 06/13/16 06/13/16 06/13/16 06:35 09:00 09:48 Temperature 98.2 F 97.9 F Pulse Rate 85 83 Respiratory 20 18 Rate Blood Pressure 136/89 158/100 O2 Sat by Pulse 94 L Oximetry (%) 06/13/16 06/13/16 06/13/16 09:49 15:01 16:45 Temperature 97.9 F 97.3 F L Pulse Rate 79 65 70 Respiratory 18 18 18 Rate Blood Pressure 159/108 147/79 140/78 O2 Sat by Pulse Oximetry (%) Intake & Output 06/11/16 06/12/16 06/13/16 06/14/16 07:59 07:59 07:59 07:59 Intake Total 470 450 0 Output Total 1450 1100 4000 1000 Balance -980 -650 -4000 -1000 Weight 285 lb 267 lb 2 oz Constitutional: Yes: No Distress, Obese Eyes: No: Sclera Icterus Respiratory: Yes: dulless at base on right, crackles at base on left No: Accessory Muscle Use, Rales, Wheezes Cardiovascular: Yes: Pulse Irregular JVD: yes Heart Sounds: Yes: S1, S2. No: Gallop Murmur: No: Systolic Murmur, Diastolic Murmur Extremities: No: Cold, Cyanosis Edema: Yes (trace pretib/erythema), trace edema of pannus Integumentary: No: Jaundice Neurological: Yes: Alert, Oriented (x3) Psychiatric: No: Agitated CBC, BMP 06/12/16 06:00 06/13/16 06:00 Laboratory Tests 06/13/16 06:00 Total Bilirubin 1.2 H D AST 22 D ALT 18 D Alkaline Phosphatase 65 Total Protein 6.1 L Albumin 3.3 L ekg 06/02: afib (HR 117 bpm); nl axis/interv; no path q's; nonsp ST-T lateral leads (no old) ekg 06/05/16: afib, rate controlled, nl qtc, no ischemic changes off tele echo 05/2016: nl lv/rv, mild-mod mr, mod tr, rvsp 50-60, trivial pericardial eff CT scan: mod-large R pleural effusion with pulmonary vascular congestion. RUL infiltrate. LLL interstitial thickening. Mediastinal LAD. Subcutaneous edema. Heterogenous mass lesions in liver, possible hepatic cirrhosis. Small-mod ascites. Assessment/Plan HTN urgency: -noted to have bp up to syst 210, diast 116; -no PMD f/u, ? chronicity of hi bp in this pt -r/o renal dz contributing, incl nephrotic syndrome -carvedilol, amlodipine started here with improved bp. Aldactone started . Diuresis as mentioned below. Would benefit from outpatient sleep study evaluation. AFib: -new dx (no prior MD f/u) -HR controlled on coreg -CHADS-VASC 1 (htn), so has indication for AC, had been on hep gtt. Now on eliquis (not ideal given BMI), but concern for compliance with INR checks on coumadin. Held in preparation for thoracentesis, resuming tomorrow. - platelets trending down, con't to monitor. -tsh wnl Likely acute diastolic HF exacerbation - s/p IVF and weight gain here 285 to 299 lbs. Ascites/pleural effusions ( hypoxia)/subcutaneous edema likely from volume overload. Although, malignancy work up ongoing. - Received lasix 40 mg IV x 1 06/09 with good uop response. Initiated standing 40 mg IV daily in addition to aldactone. Transitioned to lasix 40 mg po daily today 06/13 and also s/p volume loss from thoracentesis today. Would get standing weight today and tomorrow to make sure that he will not accumulate volume on current po lasix dose. Still with residual pulmonary edema, would keep slightly net negative. Close monitoring of BMP, daily weights. renal failure, ? chronic vs acute: - h/o recent heavy nsaid use. -creat initially near 2, no baseline, has been stable here/trending down with diuresis. Renal following. LE edema, cellulitis: -abx per hospitalist Hepatic lesions/RUL infiltrate - eval/mgm't per pmd regarding risk of malignancy. S/p diagnostic/ therapeutic thoracentesis.
[2016-06-13] MEDS: oxyCODONE HCL 5 MG TABLET PO PRN (21:42)
--- NOTE | 2016-06-14 06:12 | PN ---
<Gerry Self - Last Filed: 06/14/16 15:22> Physical Exam: ATTENDING PHYSICIAN STATEMENT I saw and evaluated the patient. I reviewed the resident's note and discussed the case with the resident. I agree with the resident's findings and plan as documented. SUBJECTIVE: seen and evaluated at the bedside OBJECTIVE: resting comfortably in bed ASSESSMENT AND PLAN: 56yo M with PMH HTN admitted for B/L lower extremity cellulitis B/L LE cellulitis -clinically improved -completed 7 days of unasyn now switched to augmentin for 7 day course -wound care and vascular f/u as outpatient Acute hypercapnic hypoxic respiratory failure -moderate to large right sided pleural effusion seen on CT chest -s/p thoracentesis; pleural fluid analysis transudative in nature possibly from nephrotic syndrome given no CHF and no cirrhosis -hypercapnia improved with bipap use. 89% on RA improves to 95% on 2L NC new onset afib -rate controlled on coreg -on eliquis liver mass -will need CT with contrast and further workup. this can likely be further worked up as outpatient as pt's renal function has just started improving -AFP WNL. CEA/hep panel pending. HTN - improved -cont coreg, and lasix -up titrate carvedilol if needed TANA -was improving but increased from yesterday -was started on spirinolactone in addition to lasix that pt was already receiving -will discuss with renal the need for spirinolactone as pt does not have stage 3 or 4 CHF and does not have ascities DVT ppx - on eliquis <Dez Shah - Last Filed: 06/14/16 22:02> Physical Exam: SUBJECTIVE: Patient seen and examined at bed side. Feeling much better today than yesterday. legs welling significantly decreased, dry, no open ulcers, redness minimal, now dark pigment. Post thoracenteses day #1 sat 87% RA, sat 93% 2L. OBJECTIVE: Vital Signs Period Temp Pulse Resp BP Sys/Villarreal Pulse Ox Last 24 Hr 97.3 F-98.2 F 65-85 18-20 136-159/78-108 94-94 GENERAL: The patient is awake, alert, and fully oriented, in no acute distress. sitting comfortably. ENT: Pupils equal, round and reactive to light, extraocular movements intact, sclera anicteric, conjunctiva clear. Neck supple. LUNGS: Clear to auscultation bilaterally.+ decreased breath Right base improvement, No respiratory distress or use of accessory muscles. right back incision dressing dry and intact CV: Irregular rhythm, tachycardic, S1/S2, no MRG. +JVD Cap refill < 2 sec. ABDOMEN: Soft, non-distended, non-tender. EXTREMITIES: Normal range of motion. Tense LE edema bilaterally, weeping. NEUROLOGICAL: Normal speech, normal gait. CN II-XII grossly intact. PSYCH: Normal mood, normal affect. SKIN: LLE: dry healing ulcers with scab, decreased swelling and erythema BLLE, 1+ pitting edema, pulses weak but intact B/L, less swelling and edema bilateral legs than yesterday. Laboratory Results - last 24 hr 06/11/16 06/13/16 06/13/16 06:20 06:00 06:00 INR 1.38 H Sodium 142 Potassium 3.4 L Chloride 99 Carbon Dioxide 37 H Anion Gap 6 L BUN 19 H Creatinine 1.4 H Creat Clearance w eGFR 52.05 Random Glucose 86 Calcium 8.6 Total Bilirubin 1.2 H D AST 22 D ALT 18 D Alkaline Phosphatase 65 Total Protein 6.1 L Albumin 3.3 L Carcinoembryonic Ag 1.0 Pleural Fluid Source Pleural Color Pleural Appearance Pleural WBC Pleural RBC Pleural Neutrophils Pleural Lymphocytes Pleural Monocytes Pleural Mesothelial Pleural Chloride Pleural Total Protein Pleural Albumin Pleural LDH Pleural Glucose Pleural Amylase Pleural Cholesterol 06/13/16 06/13/16 11:22 11:22 INR Sodium Potassium Chloride Carbon Dioxide Anion Gap BUN Creatinine Creat Clearance w eGFR Random Glucose Calcium Total Bilirubin AST 6 L D ALT < 6 L D Alkaline Phosphatase 13 L D Total Protein Albumin Carcinoembryonic Ag Pleural Fluid Source Plural fluid Pleural Color Colorless Pleural Appearance Clear Pleural WBC 260 Pleural RBC 1042 Pleural Neutrophils 8 Pleural Lymphocytes 6 Pleural Monocytes 69 Pleural Mesothelial 17 Pleural Chloride 102 Pleural Total Protein 2.382 Pleural Albumin 2 Pleural LDH 68 Pleural Glucose 98.753 Pleural Amylase 10.981 Pleural Cholesterol < 50 Active Medications Generic Name Dose Route Start Last Admin Trade Name Freq PRN Reason Stop Dose Admin Amlodipine Besylate 10 mg 06/04/16 10:00 06/13/16 09:11 Norvasc - PO 10 mg DAILY [facility] Administration Amoxicillin/Clavulanate Potassium 1 tab 06/08/16 17:30 06/13/16 18:09 Augmentin - 875mg Tablet PO 1 tab BID@0800,1730 [facility] Administration Apixaban 5 mg 06/14/16 10:00 Eliquis - PO BID [facility] Carvedilol 25 mg 06/12/16 18:15 06/13/16 21:42 Coreg - PO 25 mg BID [facility] Administration Docusate Sodium 100 mg 06/05/16 14:11 06/10/16 09:11 Colace - PO 100 mg BID PRN Administration CONSTIPATION Furosemide 40 mg 06/13/16 10:00 06/13/16 09:11 Lasix - PO 40 mg DAILY [facility] Administration Oxycodone HCl 5 mg 06/05/16 14:43 06/13/16 21:42 Roxicodone - PO 5 mg Q6H PRN Administration PAIN Spironolactone 50 mg 06/10/16 10:00 06/13/16 09:11 Aldactone - PO 50 mg DAILY [facility] Administration Home Medication List Medication Instructions Recorded Confirmed Type Colchicine [Colcrys] 0 mg PO ASDIR 06/02/16 06/02/16 History Active Medications Amlodipine Besylate (Norvasc -) 10 mg PO DAILY [facility] Last Admin: 06/13/16 09:11 Dose: 10 mg Amoxicillin/Clavulanate Potassium (Augmentin - 875mg Tablet) 1 tab PO BID@0800, 1730 [facility] Last Admin: 06/14/16 08:00 Dose: 1 tab Apixaban (Eliquis -) 5 mg PO BID [facility] Carvedilol (Coreg -) 25 mg PO BID [facility] Last Admin: 06/13/16 21:42 Dose: 25 mg Docusate Sodium (Colace -) 100 mg PO BID PRN PRN Reason: CONSTIPATION Last Admin: 06/10/16 09:11 Dose: 100 mg Furosemide (Lasix -) 40 mg PO DAILY [facility] Last Admin: 06/13/16 09:11 Dose: 40 mg Oxycodone HCl (Roxicodone -) 5 mg PO Q6H PRN PRN Reason: PAIN Last Admin: 06/14/16 07:53 Dose: 5 mg Spironolactone (Aldactone -) 50 mg PO DAILY [facility] Last Admin: 06/13/16 09:11 Dose: 50 mg ASSESSMENT/PLAN: 56 year old man admitted for failed outpatient therapy for B/L lower extremity cellulitis Acute hypercapnic hypoxic respiratory distress- OHS, STEPHAN with acute pleural effusion.(87% on RA improves to 93% on 2L NC). patient agreed to thoracentesis tomorrow to further evaluate effusion if malignant, in the setting of +LN and liver mass. will cont diuresis switched lasix to PO -s/p thoracentesis; pleural fluid analysis transudative LE Cellulitis, super imposed on chronic venous stasis afebrile, clinically improved. -switched to PO Augmentin 875mg po bid (D14) -will recommend vascular evaluation as outpatient. - will consider to stop antibiotics. liver mass- incidental finding on u/s of the kidneys. 2 large masses (largest 10cm), states malignancy vs hemangioma, -will need CT or MRI with contrast however in setting of CKD makes it difficult. -AFP wnl - avoid contrast study at this time per nephrology as there is a risk of JUNG with contrast administration - pt advised not to take nsaids New onset Afib: rate controlled on carvedilol -on eliquis (Anirudh vasc score 1, HbA1c 5.6). HTN-uncontrolled- protienurea-improved today . -d/c spirolactone. cont coreg, norvasc and lasix -observe bp trend and continue to titrate Acute on chronic Kidney Injury: renal function is cammie,cr inc today, -Discussed with renal, will continue lasix and D/c spirolactone. -avoid NSAID and nephrotoxic agents -repeat labs in am -proteinuria, pt will need an outpt workup for CKD thrombocytopenia, mild: -per hospitalist will monitor FEN monitor and replenish electrolyte as needed oral hydration sodium controlled diet DVT ppx - on eliquis Visit type - Emergency Visit Emergency Visit: Yes ED Registration Date: 06/02/16 Care time: The patient presented to the Emergency Department on the above date and was hospitalized for further evaluation of their emergent condition. - New Patient This patient is new to me today: No - Critical Care Critical Care patient: No
[2016-06-14] MEDS: oxyCODONE HCL 5 MG TABLET PO PRN (07:53)
[2016-06-14] MEDS ORDERED: PT OWN MED DRAWER 7, Y5N ONE ×2 (07:58→11:38)
[2016-06-14] MEDS: AMOX TR/POT CLAV 875MG/125MG TABLETS (FP) PO SCH ×2 (08:00→16:50)
[2016-06-14 09:10] LABS: CALCIUM 8.5 mg/dL (8.5-10.1); CREATININE 1.8 mg/dL (0.7-1.3)
--- NOTE | 2016-06-14 10:21 | PN ---
Progress Note (short form) - Note Progress Note: Reports breathing feels better since the thoracentesis yesterday. No serum LDH noted (but pleural only 68) Transudative by protein criteria. Intake & Output 06/11/16 06/12/16 06/13/16 06/14/16 23:59 23:59 23:59 23:59 Intake Total 450 100 100 Output Total 1100 4000 1000 Balance -650 -3900 -900 Weight 285 lb 267 lb 2 oz 257 lb 9.6 oz 257 lb 3 oz Last Vital Signs Temp Pulse Resp BP Pulse Ox 98.5 F 79 20 134/82 90 L 06/14/16 06:50 06/14/16 09:19 06/14/16 06:50 06/14/16 06:50 06/14/16 09:19 Active Medications Amlodipine Besylate (Norvasc -) 10 mg PO DAILY [facility] Last Admin: 06/13/16 09:11 Dose: 10 mg Amoxicillin/Clavulanate Potassium (Augmentin - 875mg Tablet) 1 tab PO BID@0800, 1730 [facility] Last Admin: 06/14/16 08:00 Dose: 1 tab Apixaban (Eliquis -) 5 mg PO BID [facility] Carvedilol (Coreg -) 25 mg PO BID [facility] Last Admin: 06/13/16 21:42 Dose: 25 mg Docusate Sodium (Colace -) 100 mg PO BID PRN PRN Reason: CONSTIPATION Last Admin: 06/10/16 09:11 Dose: 100 mg Furosemide (Lasix -) 40 mg PO DAILY [facility] Last Admin: 06/13/16 09:11 Dose: 40 mg Oxycodone HCl (Roxicodone -) 5 mg PO Q6H PRN PRN Reason: PAIN Last Admin: 06/14/16 07:53 Dose: 5 mg Spironolactone (Aldactone -) 50 mg PO DAILY [facility] Last Admin: 06/13/16 09:11 Dose: 50 mg Constitutional: Yes: NAD Eyes: Yes: EOM Intact HENT: Yes: Normocephalic Neck: Yes: Trachea Midline Cardiovascular: Yes: Pulse Irregular, S1, S2 Respiratory: Yes: Few scattered rhonchi Gastrointestinal: Yes: Normal Bowel Sounds, Soft, Abdomen, Obese Edema: LLE: 3+, RLE: 3+ Neurological: Yes: Alert Psychiatric: Yes: Alert Labs: Laboratory Results - last 24 hr 06/13/16 06/13/16 06/14/16 11:22 11:22 08:30 Sodium 142 Potassium 3.8 Chloride 97 L Carbon Dioxide 39 H Anion Gap 6 L BUN 21 H Creatinine 1.8 H D Random Glucose 76 Calcium 8.5 AST 6 L D ALT < 6 L D Alkaline Phosphatase 13 L D Pleural Fluid Source Plural fluid Pleural Color Colorless Pleural Appearance Clear Pleural WBC 260 Pleural RBC 1042 Pleural Neutrophils 8 Pleural Lymphocytes 6 Pleural Monocytes 69 Pleural Mesothelial 17 Pleural Chloride 102 Pleural Total Protein 2.382 Pleural Albumin 2 Pleural LDH 68 Pleural Glucose 98.753 Pleural Amylase 10.981 Pleural Cholesterol < 50 Problem List - Problems (1) Acute kidney injury Code(s): N17.9 - ACUTE KIDNEY FAILURE, UNSPECIFIED (2) Cellulitis of both lower extremities Code(s): L03.115 - CELLULITIS OF RIGHT LOWER LIMB L03.116 - CELLULITIS OF LEFT LOWER LIMB (3) Hypertension Code(s): I10 - ESSENTIAL (PRIMARY) HYPERTENSION (4) New onset atrial fibrillation Code(s): I48.91 - UNSPECIFIED ATRIAL FIBRILLATION (5) Sepsis Code(s): A41.9 - SEPSIS, UNSPECIFIED ORGANISM Qualifiers: Sepsis type: sepsis due to unspecified organism Qualified Code(s): A41.9 - Sepsis, unspecified organism (6) Pleural effusion associated with hepatic disorder Code(s): K76.9 - LIVER DISEASE, UNSPECIFIED J91.8 - PLEURAL EFFUSION IN OTHER CONDITIONS CLASSIFIED ELSEWHERE Assessment/Plan For follow up CXR Today Follow pleural cultures and cytology O2 as needed Lasix/Spironolactone Will follow Dr Okeefe
[2016-06-14 11:16] LABS: BASOPHIL 1.2 % (0-2.0); EOSINOPHIL 4.8 % (0-4.5); MCHC 33.1 g/dl (32.0-35.9); MEAN CELL VOLUME 90.6 fl (80-96); MEAN PLT VOLUME 7.9 fl (7.5-11.1); PLATELET COUNT 98 K/MM3 (134-434); WHITE BLOOD COUNT 6.1 K/mm3 (4.0-10.0)
[2016-06-14] MEDS: SPIRONOLACTONE 25 MG TABLET (FP) PO SCH (12:30)
[2016-06-14] MEDS: CARVEDILOL 25 MG TABLET (FP) PO SCH ×2 (12:30→21:02)
[2016-06-14] MEDS: amLODIPine BESYLATE 10 MG TABLET (FP) PO SCH (12:30)
[2016-06-14] MEDS: FUROSEMIDE 40 MG TABLET (FP) PO SCH (12:30)
[2016-06-14] MEDS: APIXABAN 5 MG TABLET PO SCH ×2 (12:31→21:01)
--- NOTE | 2016-06-14 12:41 | PATH ---
Cytology Non-Gynecological Report Patient Name: TOOTIE POON Med. Rec. #: [id number] /Age/Gender: 1960 (Age: 56) / M Account: [id number] Location: [facility] MED/SURG Taken: 06/13/2016 Received: 06/13/2016 Reported: 06/14/2016 Physicians: Rika Javed M.D. Specimen(s) Received RIGHT PLEURAL FLUID Clinical History None given Final Diagnosis PLEURAL FLUID, RIGHT, THORACENTESIS: SATISFACTORY FOR EVALUATION BENIGN (NO MALIGNANT CELLS IDENTIFIED) BENIGN AND REACTIVE MESOTHELIAL CELLS, HISTIOCYTES AND LYMPHOCYTES PRESENT. Comment: Recommend correlation with clinical findings and follow up as clinically indicated. Electronically Signed Jose Cruz Donaldson M.D. Gross Description A. Approximately 50 cc of yellow fluid received fixed in 50% alcohol. One cytofunnel and one cellblock prepared. B. Approximately 200 cc of yellow fluid received fresh. One cytofunnel and one cellblock prepared.
--- NOTE | 2016-06-14 17:26 | PN ---
Progress Note, Physician History of Present Illness: Pt seen and examined at bedside. He is awake and alert. He feels that his breathing is markedly improved. - Current Medication List Current Medications: Active Medications Amlodipine Besylate (Norvasc -) 10 mg PO DAILY [facility] Last Admin: 06/14/16 12:30 Dose: 10 mg Amoxicillin/Clavulanate Potassium (Augmentin - 875mg Tablet) 1 tab PO BID@0800, 1730 [facility] Last Admin: 06/14/16 16:50 Dose: 1 tab Apixaban (Eliquis -) 5 mg PO BID [facility] Last Admin: 06/14/16 12:31 Dose: 5 mg Carvedilol (Coreg -) 25 mg PO BID [facility] Last Admin: 06/14/16 12:30 Dose: 25 mg Docusate Sodium (Colace -) 100 mg PO BID PRN PRN Reason: CONSTIPATION Last Admin: 06/10/16 09:11 Dose: 100 mg Furosemide (Lasix -) 40 mg PO DAILY [facility] Last Admin: 06/14/16 12:30 Dose: 40 mg Oxycodone HCl (Roxicodone -) 5 mg PO Q6H PRN PRN Reason: PAIN Last Admin: 06/14/16 07:53 Dose: 5 mg - Objective Vital Signs: Vital Signs Temperature 97.9 F 06/14/16 17:13 Pulse Rate 73 06/14/16 17:13 Respiratory Rate 20 06/14/16 17:13 Blood Pressure 145/64 06/14/16 17:13 O2 Sat by Pulse Oximetry (%) 90 L 06/14/16 09:19 Constitutional: Yes: Calm Eyes: Yes: Conjunctiva Clear HENT: Yes: Atraumatic Neck: Yes: Supple Cardiovascular: Yes: S1, S2 Respiratory: Yes: CTA Bilaterally Genitourinary: Yes: WNL Musculoskeletal: Yes: WNL Edema: Yes Edema: LLE: 1+, RLE: 1+ Neurological: Yes: Oriented Psychiatric: Yes: Oriented Labs: CBC, BMP 06/14/16 06:00 06/14/16 08:30 INR, PTT INR 1.38 (0.82-1.09) H 06/13/16 06:00 Assessment/Plan Current Medications Generic Name Dose Route Start Last Admin Trade Name Freq PRN Reason Stop Dose Admin Amlodipine Besylate 10 mg 06/04/16 10:00 06/13/16 09:11 Norvasc - PO 10 mg DAILY [facility] Administration Amoxicillin/Clavulanate Potassium 1 tab 06/08/16 17:30 06/13/16 09:12 Augmentin - 875mg Tablet PO 1 tab BID@0800,1730 [facility] Administration Apixaban 5 mg 06/14/16 10:00 Eliquis - PO BID [facility] Carvedilol 25 mg 06/12/16 18:15 06/13/16 09:11 Coreg - PO 25 mg BID [facility] Administration Docusate Sodium 100 mg 06/05/16 14:11 06/10/16 09:11 Colace - PO 100 mg BID PRN Administration CONSTIPATION Furosemide 40 mg 06/13/16 10:00 06/13/16 09:11 Lasix - PO 40 mg DAILY [facility] Administration Oxycodone HCl 5 mg 06/05/16 14:43 06/12/16 15:42 Roxicodone - PO 5 mg Q6H PRN Administration PAIN Spironolactone 50 mg 06/10/16 10:00 06/13/16 09:11 Aldactone - PO 50 mg DAILY [facility] Administration Impression 1. likely CKD 2. HTN 3. a-fib 4. liver mass 5. cellulitis Plan - weight is 257 pounds, down from 270 on admission - creatinine is worse today and bicarb is higher - trial of lasix alone, will hold spironolactone - monitor bmp - monitor potassium and mag levels - follow up cytology - discussed with house staff - he does have proteinuria, pt will need an outpt workup for CKD - monitor BP - will follow Dr Desai
--- NOTE | 2016-06-14 19:59 | PN ---
Progress Note (short form) - Note Progress Note: CC: afib s: no cp sob palps dizzy; tried on room air but saturation only 90%, O2 therapy resumed. o: Current Medications Amlodipine Besylate (Norvasc -) 10 mg PO DAILY [facility] Last Admin: 06/14/16 12:30 Dose: 10 mg Amoxicillin/Clavulanate Potassium (Augmentin - 875mg Tablet) 1 tab PO BID@0800, 1730 [facility] Last Admin: 06/14/16 16:50 Dose: 1 tab Apixaban (Eliquis -) 5 mg PO BID [facility] Last Admin: 06/14/16 12:31 Dose: 5 mg Carvedilol (Coreg -) 25 mg PO BID [facility] Last Admin: 06/14/16 12:30 Dose: 25 mg Docusate Sodium (Colace -) 100 mg PO BID PRN PRN Reason: CONSTIPATION Last Admin: 06/10/16 09:11 Dose: 100 mg Furosemide (Lasix -) 40 mg PO DAILY [facility] Last Admin: 06/14/16 12:30 Dose: 40 mg Oxycodone HCl (Roxicodone -) 5 mg PO Q6H PRN PRN Reason: PAIN Last Admin: 06/14/16 07:53 Dose: 5 mg Vital Signs - 24 hr 06/13/16 06/13/16 06/14/16 21:00 21:27 06:50 Temperature 98.2 F 98.5 F Pulse Rate 79 69 Respiratory 20 20 20 Rate Blood Pressure 136/78 134/82 O2 Sat by Pulse 94 L Oximetry (%) 06/14/16 06/14/16 06/14/16 09:00 09:19 10:00 Temperature 97.8 F Pulse Rate 79 61 Respiratory 20 Rate Blood Pressure 132/74 O2 Sat by Pulse 90 L 90 L Oximetry (%) 06/14/16 06/14/16 14:48 17:13 Temperature 98.9 F 97.9 F Pulse Rate 88 73 Respiratory 20 20 Rate Blood Pressure 153/78 145/64 O2 Sat by Pulse Oximetry (%) Intake & Output 06/12/16 06/13/16 06/14/16 06/15/16 07:59 07:59 07:59 07:59 Intake Total 450 0 100 200 Output Total 1100 4000 1000 700 Balance -650 -4000 -900 -500 Weight 267 lb 2 oz 257 lb 3 oz Constitutional: Yes: No Distress, Obese Eyes: No: Sclera Icterus Respiratory: Yes: trace dullness/diminished air movement at bases No: Accessory Muscle Use, Rales, Wheezes Cardiovascular: Yes: Pulse Irregular JVD: tds Heart Sounds: Yes: S1, S2. No: Gallop Murmur: No: Systolic Murmur, Diastolic Murmur Extremities: No: Cold, Cyanosis Edema: trace dependent, improved. Integumentary: No: Jaundice Neurological: Yes: Alert, Oriented (x3) Psychiatric: No: Agitated CBC, BMP 06/14/16 06:00 06/14/16 08:30 ekg 06/02: afib (HR 117 bpm); nl axis/interv; no path q's; nonsp ST-T lateral leads (no old) ekg 06/05/16: afib, rate controlled, nl qtc, no ischemic changes off tele echo 05/2016: nl lv/rv, mild-mod mr, mod tr, rvsp 50-60, trivial pericardial eff CT scan: mod-large R pleural effusion with pulmonary vascular congestion. RUL infiltrate. LLL interstitial thickening. Mediastinal LAD. Subcutaneous edema. Heterogenous mass lesions in liver, possible hepatic cirrhosis. Small-mod ascites. Assessment/Plan HTN urgency: -noted to have bp up to syst 210, diast 116; -no PMD f/u, ? chronicity of hi bp in this pt -r/o renal dz contributing, incl nephrotic syndrome -carvedilol, amlodipine started here with improved bp. Aldactone started . Diuresis as mentioned below. Would benefit from outpatient sleep study evaluation. - 1/ per renal will stop aldactone. AFib: -new dx (no prior MD f/u) -HR controlled on coreg -CHADS-VASC 1 (htn), so has indication for AC, had been on hep gtt. Now on eliquis (not ideal given BMI), but concern for compliance with INR checks on coumadin. Held in preparation for thoracentesis, now resumed. - platelets trending down, con't to monitor. -tsh wnl Likely acute diastolic HF exacerbation - s/p IVF and weight gain here 285 to 299 lbs. Ascites/pleural effusions ( hypoxia)/subcutaneous edema likely from volume overload. Although, malignancy work up ongoing. - Received lasix 40 mg IV x 1 06/09 with good uop response. Initiated standing 40 mg IV daily in addition to aldactone. Transitioned to lasix 40 mg po daily today 06/13 and also s/p volume loss from thoracentesis. - 06/14 standing weights stable on po lasix/aldactone. Pleural effusions resolved on CXR today. Cr slightly worse. Per renal will hold aldactone, con' t lasix. Close monitoring of BMP, standing daily weights. Patient still only with saturation of 90% on room air, ? underlying pulmonary disease, will defer to pulmonary. renal failure, ? chronic vs acute: - h/o recent heavy nsaid use. -creat initially near 2, no baseline, has been stable here/trended down with diuresis. Renal following. LE edema, cellulitis: -abx per hospitalist Hepatic lesions/RUL infiltrate - eval/mgm't per pmd regarding risk of malignancy. S/p diagnostic/ therapeutic thoracentesis.
[2016-06-15] MEDS: oxyCODONE HCL 5 MG TABLET PO PRN ×2 (01:15→06:30)
[2016-06-15] MEDS: AMOX TR/POT CLAV 875MG/125MG TABLETS (FP) PO SCH ×2 (08:01→16:43)
--- NOTE | 2016-06-15 08:16 | PN ---
<Gerry Self - Last Filed: 06/15/16 14:26> Physical Exam: ATTENDING PHYSICIAN STATEMENT I saw and evaluated the patient. I reviewed the resident's note and discussed the case with the resident. I agree with the resident's findings and plan as documented. SUBJECTIVE: seen and evaluated at the bedside OBJECTIVE: resting comfortably in bed ASSESSMENT AND PLAN: 56yo M with PMH HTN admitted for B/L lower extremity cellulitis B/L LE cellulitis -clinically improved -completed 7 days of unasyn now switched to augmentin for 7 day course -wound care and vascular f/u as outpatient Acute hypercapnic hypoxic respiratory failure -moderate to large right sided pleural effusion seen on CT chest -s/p thoracentesis; pleural fluid analysis transudative in nature possibly from nephrotic syndrome given no CHF and no cirrhosis -hypercapnia improved with bipap use -repeat CXR shows no recurrence of effusion -will need home oxygen upon discharge; follow up pre and post exercise oximetry new onset afib -rate controlled on coreg -on eliquis liver mass -will need CT with contrast and further workup. this can likely be further worked up as outpatient as pt's renal function has just started improving -AFP CEA WNL HTN -improved -cont coreg, and lasix -up titrate carvedilol if needed TANA -was improving but increased from yesterday -was started on spirinolactone in addition to lasix that pt was already receiving -discussed with renal the need for spirinolactone as pt does not have stage 3 or 4 CHF and does not have ascities and is now stopped -cont to trend DVT ppx - on eliquis <Dez Shah - Last Filed: 06/15/16 15:06> Physical Exam: SUBJECTIVE: Patient seen and examined at bed side. patient feeling well. leg swelling and cellulitis improving. desaturated at bed while sitting 95% on 2L to 84% on RA during rest patient became lightheaded and confused. discussed with patient lab, and imaging results and agrees with plan of possible discharge tomorrow on home oxygen. OBJECTIVE: Vital Signs Period Temp Pulse Resp BP Sys/Villarreal Pulse Ox Last 24 Hr 97.8 F-98.9 F 61-88 20-20 126-153/64-79 90-95 GENERAL: The patient is awake, alert, and fully oriented, in no acute distress. sitting comfortably. ENT: Pupils equal, round and reactive to light, extraocular movements intact, sclera anicteric, conjunctiva clear. Neck supple. LUNGS: Clear to auscultation bilaterally.+ decreased breath Right base improvement, No respiratory distress or use of accessory muscles. right back incision dressing dry and intact CV: Irregular rhythm, tachycardic, S1/S2, no MRG. +JVD Cap refill < 2 sec. ABDOMEN: Soft, non-distended, non-tender. EXTREMITIES: Normal range of motion. decrease edema +1. NEUROLOGICAL: Normal speech, normal gait. CN II-XII grossly intact. PSYCH: Normal mood, normal affect. SKIN: LLE: dry healing ulcers with scab, decreased swelling and erythema BLLE, 1+ pitting edema, pulses weak but intact B/L, less swelling and edema bilateral legs than yesterday. Laboratory Results - last 24 hr 06/14/16 06/14/16 06:00 08:30 WBC 6.1 RBC 4.09 Hgb 12.3 Hct 37.1 MCV 90.6 MCHC 33.1 RDW 18.0 H Plt Count 98 L MPV 7.9 Neutrophils % 67.0 Lymphocytes % 14.6 D Monocytes % 12.4 H Eosinophils % 4.8 H Basophils % 1.2 Sodium 142 Potassium 3.8 Chloride 97 L Carbon Dioxide 39 H Anion Gap 6 L BUN 21 H Creatinine 1.8 H D Random Glucose 76 Calcium 8.5 Active Medications Generic Name Dose Route Start Last Admin Trade Name Freq PRN Reason Stop Dose Admin Amlodipine Besylate 10 mg 06/04/16 10:00 06/14/16 12:30 Norvasc - PO 10 mg DAILY [facility] Administration Amoxicillin/Clavulanate Potassium 1 tab 06/08/16 17:30 06/15/16 08:01 Augmentin - 875mg Tablet PO 1 tab BID@0800,1730 [facility] Administration Apixaban 5 mg 06/14/16 10:00 06/14/16 21:01 Eliquis - PO 5 mg BID [facility] Administration Carvedilol 25 mg 06/12/16 18:15 06/14/16 21:02 Coreg - PO 25 mg BID [facility] Administration Docusate Sodium 100 mg 06/05/16 14:11 06/10/16 09:11 Colace - PO 100 mg BID PRN Administration CONSTIPATION Furosemide 40 mg 06/13/16 10:00 06/14/16 12:30 Lasix - PO 40 mg DAILY [facility] Administration Oxycodone HCl 5 mg 06/05/16 14:43 06/15/16 06:30 Roxicodone - PO 5 mg Q6H PRN Administration PAIN ASSESSMENT/PLAN: 56 year old man admitted for failed outpatient therapy for B/L lower extremity cellulitis Acute hypercapnic hypoxic respiratory distress- OHS, STEPHAN with acute pleural effusion.(87% on RA improves to 93% on 2L NC). -s/p thoracentesis; pleural fluid analysis transudative in nature possibly. will cont diuresis switched lasix to PO -repeat CXR shows no recurrence of effusion -f/u pre and post oxygen saturation -will need home oxygen upon discharge; LE Cellulitis, super imposed on chronic venous stasis afebrile, clinically improved. -day 7 PO Augmentin 875mg po bid, -will stop antibiotics after today. -will recommend vascular evaluation as outpatient. liver mass- incidental finding on u/s of the kidneys. 2 large masses (largest 10cm), states malignancy vs hemangioma, -will need CT or MRI with contrast however in setting of CKD makes it difficult. -AFP CEA wnl liver mass -will need CT with contrast and further workup. this can likely be further worked up as outpatient as pt's renal function has just started improving -AFP WNL New onset Afib: rate controlled on carvedilol -on eliquis (Anirudh vasc score 1, HbA1c 5.6). HTN-uncontrolled- protienurea-improved today . cont coreg, norvasc and lasix -observe bp trend and continue to titrate Acute on chronic Kidney Injury: renal function is cammie,cr inc form two day sago, same as yesterday. -Discussed with renal, will continue lasix and D/c spirolactone. -avoid NSAID and nephrotoxic agents -repeat labs in am -proteinuria, pt will need an outpt workup for CKD Thrombocytopenia, mild: -per hospitalist will monitor FEN monitor and replenish electrolyte as needed oral hydration sodium controlled diet DVT ppx - on eliquis dispo: will consider to discharge tomorrow pending kidney function labs , will need home oxygen upon discharge; -f/u pre and post oxygen saturation Visit type - Emergency Visit Emergency Visit: Yes ED Registration Date: 06/02/16 Care time: The patient presented to the Emergency Department on the above date and was hospitalized for further evaluation of their emergent condition. - New Patient This patient is new to me today: No - Critical Care Critical Care patient: No
[2016-06-15 08:29] LABS: CALCIUM 8.8 mg/dL (8.5-10.1)
[2016-06-15 08:32] LABS: CREATININE 1.8 mg/dL (0.7-1.3)
--- NOTE | 2016-06-15 11:17 | PN ---
Progress Note, Physician History of Present Illness: Pt seen and examined at bedside. He is awake and alert. He still requires oxygen. He denies dysuria or hematuria. - Current Medication List Current Medications: Active Medications Amlodipine Besylate (Norvasc -) 10 mg PO DAILY [facility] Last Admin: 06/14/16 12:30 Dose: 10 mg Amoxicillin/Clavulanate Potassium (Augmentin - 875mg Tablet) 1 tab PO BID@0800, 1730 [facility] Last Admin: 06/15/16 08:01 Dose: 1 tab Apixaban (Eliquis -) 5 mg PO BID [facility] Last Admin: 06/14/16 21:01 Dose: 5 mg Carvedilol (Coreg -) 25 mg PO BID [facility] Last Admin: 06/14/16 21:02 Dose: 25 mg Docusate Sodium (Colace -) 100 mg PO BID PRN PRN Reason: CONSTIPATION Last Admin: 06/10/16 09:11 Dose: 100 mg Furosemide (Lasix -) 40 mg PO DAILY [facility] Last Admin: 06/14/16 12:30 Dose: 40 mg Oxycodone HCl (Roxicodone -) 5 mg PO Q6H PRN PRN Reason: PAIN Last Admin: 06/15/16 06:30 Dose: 5 mg - Objective Vital Signs: Vital Signs Temperature 98.1 F 06/15/16 05:32 Pulse Rate 70 06/15/16 05:32 Respiratory Rate 20 06/15/16 05:32 Blood Pressure 137/79 06/15/16 05:32 O2 Sat by Pulse Oximetry (%) 95 06/14/16 20:17 Constitutional: Yes: Calm Eyes: Yes: Conjunctiva Clear HENT: Yes: Atraumatic Cardiovascular: Yes: S1, S2 Respiratory: Yes: On Nasal O2 Gastrointestinal: Yes: Normal Bowel Sounds Genitourinary: Yes: WNL Musculoskeletal: Yes: WNL Edema: Yes Edema: LLE: Trace, RLE: Trace Neurological: Yes: Oriented Psychiatric: Yes: Oriented Labs: CBC, BMP 06/14/16 06:00 06/15/16 06:00 INR, PTT INR 1.38 (0.82-1.09) H 06/13/16 06:00 Assessment/Plan Current Medications Generic Name Dose Route Start Last Admin Trade Name Freq PRN Reason Stop Dose Admin Amlodipine Besylate 10 mg 06/04/16 10:00 06/14/16 12:30 Norvasc - PO 10 mg DAILY [facility] Administration Amoxicillin/Clavulanate Potassium 1 tab 06/08/16 17:30 06/15/16 08:01 Augmentin - 875mg Tablet PO 1 tab BID@0800,1730 [facility] Administration Apixaban 5 mg 06/14/16 10:00 06/14/16 21:01 Eliquis - PO 5 mg BID [facility] Administration Carvedilol 25 mg 06/12/16 18:15 06/14/16 21:02 Coreg - PO 25 mg BID [facility] Administration Docusate Sodium 100 mg 06/05/16 14:11 06/10/16 09:11 Colace - PO 100 mg BID PRN Administration CONSTIPATION Furosemide 40 mg 06/13/16 10:00 06/14/16 12:30 Lasix - PO 40 mg DAILY [facility] Administration Oxycodone HCl 5 mg 06/05/16 14:43 06/15/16 06:30 Roxicodone - PO 5 mg Q6H PRN Administration PAIN Impression 1. likely CKD 2. HTN 3. a-fib 4. liver mass 5. cellulitis Plan - weight is 255 pounds, down from 270 on admission - cont with lasix - follow up repeat cxr today to evaluate effusion - repeat labs in am - will need outpt follow up after discharge - follow up cytology - discussed with house staff - he does have proteinuria, pt will need an outpt workup for CKD - monitor BP, it is controlled - will follow Dr Desai
[2016-06-15] MEDS ORDERED: PT OWN MED DRAWER 7, Y5N ONE ×2 (11:41→16:17)
[2016-06-15] MEDS: amLODIPine BESYLATE 10 MG TABLET (FP) PO SCH (11:50)
[2016-06-15] MEDS: CARVEDILOL 25 MG TABLET (FP) PO SCH ×2 (11:50→22:23)
[2016-06-15] MEDS: FUROSEMIDE 40 MG TABLET (FP) PO SCH (11:51)
[2016-06-15] MEDS: APIXABAN 5 MG TABLET PO SCH ×2 (11:51→22:23)
--- NOTE | 2016-06-15 16:26 | PN ---
Progress Note, Physician History of Present Illness: pulmonary alert,sitting up in bed -sob,-cp. - Current Medication List Current Medications: Active Medications Amlodipine Besylate (Norvasc -) 10 mg PO DAILY [facility] Last Admin: 06/15/16 11:50 Dose: 10 mg Amoxicillin/Clavulanate Potassium (Augmentin - 875mg Tablet) 1 tab PO BID@0800, 1730 [facility] Stop: 06/15/16 23:59 Last Admin: 06/15/16 08:01 Dose: 1 tab Apixaban (Eliquis -) 5 mg PO BID [facility] Last Admin: 06/15/16 11:51 Dose: 5 mg Carvedilol (Coreg -) 25 mg PO BID [facility] Last Admin: 06/15/16 11:50 Dose: 25 mg Docusate Sodium (Colace -) 100 mg PO BID PRN PRN Reason: CONSTIPATION Last Admin: 06/10/16 09:11 Dose: 100 mg Furosemide (Lasix -) 40 mg PO DAILY [facility] Last Admin: 06/15/16 11:51 Dose: 40 mg - Objective Vital Signs: Vital Signs Temperature 98.2 F 06/15/16 13:52 Pulse Rate 63 06/15/16 15:08 Respiratory Rate 20 06/15/16 13:52 Blood Pressure 137/79 06/15/16 05:32 O2 Sat by Pulse Oximetry (%) 93 L 06/15/16 15:08 Constitutional: Yes: Well Nourished, Calm Eyes: Yes: WNL HENT: Yes: WNL Neck: Yes: WNL Cardiovascular: Yes: Pulse Irregular, S1, S2 Respiratory: Yes: Diminished Gastrointestinal: Yes: Normal Bowel Sounds, Soft Extremities: Yes: WNL, Other (wrapped) Labs: CBC, BMP 06/14/16 06:00 06/15/16 06:00 INR, PTT INR 1.38 (0.82-1.09) H 06/13/16 06:00 - ....Imaging Chest X-ray: Report Reviewed, Image Reviewed (-INFITRATES,-CONGESTION) Assessment/Plan Problem List - Problems (1) Acute kidney injury Code(s): N17.9 - ACUTE KIDNEY FAILURE, UNSPECIFIED (2) Cellulitis of both lower extremities Code(s): L03.115 - CELLULITIS OF RIGHT LOWER LIMB L03.116 - CELLULITIS OF LEFT LOWER LIMB (3) Hypertension Code(s): I10 - ESSENTIAL (PRIMARY) HYPERTENSION (4) New onset atrial fibrillation Code(s): I48.91 - UNSPECIFIED ATRIAL FIBRILLATION (5) Sepsis Code(s): A41.9 - SEPSIS, UNSPECIFIED ORGANISM Qualifiers: Sepsis type: sepsis due to unspecified organism Qualified Code(s): A41.9 - Sepsis, unspecified organism (6) Pleural effusion associated with hepatic disorder Code(s): K76.9 - LIVER DISEASE, UNSPECIFIED J91.8 - PLEURAL EFFUSION IN OTHER CONDITIONS CLASSIFIED ELSEWHERE CYTOLOGY NEGATIVE Assessment/Plan For follow up CXR Today Follow pleural cultures and cytology O2 as needed Lasix/Spironolactone Will follow Problem List - Problems (1) Acute kidney injury Code(s): N17.9 - ACUTE KIDNEY FAILURE, UNSPECIFIED (2) Cellulitis of both lower extremities Code(s): L03.115 - CELLULITIS OF RIGHT LOWER LIMB L03.116 - CELLULITIS OF LEFT LOWER LIMB (3) Hypertension Code(s): I10 - ESSENTIAL (PRIMARY) HYPERTENSION (4) New onset atrial fibrillation Code(s): I48.91 - UNSPECIFIED ATRIAL FIBRILLATION (5) Sepsis Code(s): A41.9 - SEPSIS, UNSPECIFIED ORGANISM Qualifiers: Sepsis type: sepsis due to unspecified organism Qualified Code(s): A41.9 - Sepsis, unspecified organism (6) Pleural effusion associated with hepatic disorder Code(s): K76.9 - LIVER DISEASE, UNSPECIFIED J91.8 - PLEURAL EFFUSION IN OTHER CONDITIONS CLASSIFIED ELSEWHERE Assessment/Plan O2 as needed Lasix/Spironolactone DR THOMPSON
--- NOTE | 2016-06-15 19:06 | PN ---
Progress Note (short form) - Note Progress Note: CC: afib s: no cp sob palps dizzy; still requiring oxygen. o: Current Medications Amlodipine Besylate (Norvasc -) 10 mg PO DAILY [facility] Last Admin: 06/15/16 11:50 Dose: 10 mg Apixaban (Eliquis -) 5 mg PO BID [facility] Last Admin: 06/15/16 11:51 Dose: 5 mg Carvedilol (Coreg -) 25 mg PO BID [facility] Last Admin: 06/15/16 11:50 Dose: 25 mg Docusate Sodium (Colace -) 100 mg PO BID PRN PRN Reason: CONSTIPATION Last Admin: 06/10/16 09:11 Dose: 100 mg Furosemide (Lasix -) 40 mg PO DAILY [facility] Last Admin: 06/15/16 11:51 Dose: 40 mg Vital Signs - 24 hr 06/14/16 06/14/16 06/15/16 20:11 20:17 05:32 Temperature 98.2 F 98.1 F Pulse Rate 74 70 Respiratory 20 20 20 Rate Blood Pressure 126/76 137/79 O2 Sat by Pulse 95 95 Oximetry (%) 06/15/16 06/15/16 06/15/16 09:00 11:07 13:52 Temperature 98.4 F 98.2 F Pulse Rate 71 53 L 80 Respiratory 20 20 Rate Blood Pressure 136/83 O2 Sat by Pulse 95 97 Oximetry (%) 06/15/16 06/15/16 15:08 18:10 Temperature 97.9 F Pulse Rate 63 72 Respiratory 18 Rate Blood Pressure 133/81 O2 Sat by Pulse 93 L Oximetry (%) Intake & Output 06/13/16 06/14/16 06/15/16 06/16/16 07:59 07:59 07:59 07:59 Intake Total 0 100 350 150 Output Total 4000 1000 700 Balance -4000 -900 -350 150 Weight 257 lb 3 oz 255 lb 7 oz Constitutional: Yes: No Distress, Obese Eyes: No: Sclera Icterus Respiratory: Yes: trace dullness/diminished air movement at bases No: Accessory Muscle Use, Rales, Wheezes Cardiovascular: Yes: Pulse Irregular JVD: tds Heart Sounds: Yes: S1, S2. No: Gallop Murmur: No: Systolic Murmur, Diastolic Murmur Extremities: No: Cold, Cyanosis Edema: trace dependent, improved. Integumentary: No: Jaundice Neurological: Yes: Alert, Oriented (x3) Psychiatric: No: Agitated CBC, BMP 06/14/16 06:00 06/15/16 06:00 ekg 06/02: afib (HR 117 bpm); nl axis/interv; no path q's; nonsp ST-T lateral leads (no old) ekg 06/05/16: afib, rate controlled, nl qtc, no ischemic changes off tele echo 05/2016: nl lv/rv, mild-mod mr, mod tr, rvsp 50-60, trivial pericardial eff CT scan: mod-large R pleural effusion with pulmonary vascular congestion. RUL infiltrate. LLL interstitial thickening. Mediastinal LAD. Subcutaneous edema. Heterogenous mass lesions in liver, possible hepatic cirrhosis. Small-mod ascites. Assessment/Plan HTN urgency: -noted to have bp up to syst 210, diast 116; -no PMD f/u, ? chronicity of hi bp in this pt -r/o renal dz contributing, incl nephrotic syndrome -carvedilol, amlodipine started here with improved bp. Aldactone started . Diuresis as mentioned below. Would benefit from outpatient sleep study evaluation. - 06/14 per renal stopped aldactone. AFib: -new dx (no prior MD f/u) -HR controlled on coreg -CHADS-VASC 1 (htn), so has indication for AC, had been on hep gtt. Now on eliquis (not ideal given BMI), but concern for compliance with INR checks on coumadin. Held in preparation for thoracentesis, now resumed. - platelets trending down, con't to monitor. per pmd. -tsh wnl Likely acute diastolic HF exacerbation - s/p IVF and weight gain here 285 to 299 lbs. Ascites/pleural effusions ( hypoxia)/subcutaneous edema likely from volume overload. Although, malignancy work up ongoing. - Received lasix 40 mg IV x 1 06/09 with good uop response. Initiated standing 40 mg IV daily in addition to aldactone. Transitioned to lasix 40 mg po daily today 06/13 and also s/p volume loss from thoracentesis. - 06/14 standing weights stable on po lasix/aldactone. Pleural effusions resolved on CXR today. Cr slightly worse. Per renal will hold aldactone, con' t lasix. - 06/15: Weight stable/mild decreased on po lasix, continue. Daily BMP, standing daily weights. Patient still with low saturation on room air, ? underlying pulmonary disease, will defer to pulmonary. renal failure, ? chronic vs acute: - h/o recent heavy nsaid use. -creat initially near 2, no baseline, has been stable here/trended down with diuresis. Renal following. LE edema, cellulitis: -abx per hospitalist Hepatic lesions/RUL infiltrate - eval/mgm't per pmd regarding risk of malignancy. S/p diagnostic/ therapeutic thoracentesis.
[2016-06-16 07:47] LABS: CALCIUM 8.5 mg/dL (8.5-10.1); CREATININE 1.9 mg/dL (0.7-1.3)
--- NOTE | 2016-06-16 10:55 | PN ---
Progress Note, Physician - Current Medication List Current Medications: Active Medications Amlodipine Besylate (Norvasc -) 10 mg PO DAILY [facility] Last Admin: 06/15/16 11:50 Dose: 10 mg Apixaban (Eliquis -) 5 mg PO BID [facility] Last Admin: 06/15/16 22:23 Dose: 5 mg Carvedilol (Coreg -) 25 mg PO BID [facility] Last Admin: 06/15/16 22:23 Dose: 25 mg Docusate Sodium (Colace -) 100 mg PO BID PRN PRN Reason: CONSTIPATION Last Admin: 06/10/16 09:11 Dose: 100 mg - Objective Vital Signs: Vital Signs Temperature 98.2 F 06/16/16 07:20 Pulse Rate 84 06/16/16 07:20 Respiratory Rate 18 06/16/16 07:20 Blood Pressure 149/57 06/16/16 07:20 O2 Sat by Pulse Oximetry (%) 97 06/15/16 21:00 Constitutional: Yes: Well Nourished, No Distress, Calm Eyes: Yes: WNL, Conjunctiva Clear HENT: Yes: WNL, Atraumatic, Normocephalic Neck: Yes: WNL, Supple, Trachea Midline Cardiovascular: Yes: WNL, Regular Rate and Rhythm Respiratory: Yes: WNL, Regular, CTA Bilaterally Gastrointestinal: Yes: WNL, Normal Bowel Sounds Musculoskeletal: Yes: WNL Extremities: Yes: WNL Edema: No Integumentary: Yes: WNL Neurological: Yes: WNL, Alert, Oriented ...Motor Strength: WNL Psychiatric: Yes: WNL Labs: CBC, BMP 06/14/16 06:00 06/16/16 06:00 INR, PTT INR 1.38 (0.82-1.09) H 06/13/16 06:00 Impression/Plan Impression/Plan: 56yo M with PMH HTN admitted for B/L lower extremity cellulitis B/L LE cellulitis -clinically improved -completed 7 days of unasyn now switched to augmentin for 7 day course -wound care and vascular f/u as outpatient Acute hypercapnic hypoxic respiratory failure -moderate to large right sided pleural effusion seen on CT chest -s/p thoracentesis; pleural fluid analysis transudative in nature possibly from nephrotic syndrome given no CHF and no cirrhosis -hypercapnia improved with bipap use -repeat CXR shows no recurrence of effusion -was hypoxic on room air yesterday but today saturation is 92-93% on room air; will leave pt on room air as long as he tolerates to asses pulm function throughout the day new onset afib -rate controlled on coreg -on eliquis liver mass -will need CT with contrast and further workup. this can likely be further worked up as outpatient as pt's renal function has just started improving -AFP CEA WNL HTN -improved -cont coreg, and lasix -up titrate carvedilol if needed TANA -was improving but increased over past few days -was started on spirinolactone in addition to lasix that pt was already receiving -discussed with renal the need for spirinolactone as pt does not have stage 3 or 4 CHF and does not have ascities and is now stopped -cont to trend DVT ppx - on eliquis Visit type - Emergency Visit Emergency Visit: Yes ED Registration Date: 06/02/16 Care time: The patient presented to the Emergency Department on the above date and was hospitalized for further evaluation of their emergent condition. - New Patient This patient is new to me today: No - Critical Care Critical Care patient: No
[2016-06-16] MEDS: FUROSEMIDE 40 MG TABLET (FP) PO SCH (12:24)
[2016-06-16] MEDS: CARVEDILOL 25 MG TABLET (FP) PO SCH ×2 (12:24→21:06)
[2016-06-16] MEDS: amLODIPine BESYLATE 10 MG TABLET (FP) PO SCH (12:24)
[2016-06-16] MEDS ORDERED: PT OWN MED DRAWER 7, Y5N ONE ×2 (12:26→20:08)
[2016-06-16] MEDS: APIXABAN 5 MG TABLET PO SCH ×2 (12:26→21:06)
--- NOTE | 2016-06-16 12:58 | PN ---
Progress Note (short form) - Note Progress Note: PULMONARY Breathing continues to improve. Hypoxic on room air. Last Vital Signs Temp Pulse Resp BP Pulse Ox 98.2 F 84 18 149/57 97 06/16/16 07:20 06/16/16 07:20 06/16/16 07:20 06/16/16 07:20 06/15/16 21:00 Gen: NAD at rest Heart: RRR Lung: right base rales Abd: soft, nontender Ext: no edema CBC, BMP 06/14/16 06:00 06/16/16 06:00 Active Medications Amlodipine Besylate (Norvasc -) 10 mg PO DAILY [facility] Last Admin: 06/16/16 12:24 Dose: 10 mg Apixaban (Eliquis -) 5 mg PO BID [facility] Last Admin: 06/16/16 12:26 Dose: 5 mg Carvedilol (Coreg -) 25 mg PO BID [facility] Last Admin: 06/16/16 12:24 Dose: 25 mg Docusate Sodium (Colace -) 100 mg PO BID PRN PRN Reason: CONSTIPATION Last Admin: 06/10/16 09:11 Dose: 100 mg A/P Pleural Effusion - Transudate LV Diastolic Dysfunction Atrial Fibrillation Pulmonary HTN Liver Mass HTN Cellulitis CKD Elevated Right Hemidiaphragm - continue lasix, aldactone - rate controlled - continue anticoagulation - OOB to chair - will need outpt PFTs - ?restrictive disease from elevated hemidiaphragm - ambulatory SpO2 to assess for home O2
--- NOTE | 2016-06-16 15:19 | PN ---
Progress Note, Physician Chief Complaint: Pt appears comfortable and in no distress lyning flat in bed CXR from yesterday shows no congestion and a raided right hemidiaphragm Serum Cr continues to rise on the daily lasixwhich was held earlier today - Current Medication List Current Medications: Active Medications Amlodipine Besylate (Norvasc -) 10 mg PO DAILY [facility] Last Admin: 06/16/16 12:24 Dose: 10 mg Apixaban (Eliquis -) 5 mg PO BID [facility] Last Admin: 06/16/16 12:26 Dose: 5 mg Carvedilol (Coreg -) 25 mg PO BID [facility] Last Admin: 06/16/16 12:24 Dose: 25 mg Docusate Sodium (Colace -) 100 mg PO BID PRN PRN Reason: CONSTIPATION Last Admin: 06/10/16 09:11 Dose: 100 mg - Objective Vital Signs: Vital Signs Temperature 98.2 F 06/16/16 07:20 Pulse Rate 84 06/16/16 07:20 Respiratory Rate 18 06/16/16 07:20 Blood Pressure 149/57 06/16/16 07:20 O2 Sat by Pulse Oximetry (%) 97 06/15/16 21:00 Constitutional: Yes: No Distress Cardiovascular: Yes: Pulse Irregular, S1, S2. No: JVD Respiratory: Yes: Other (Decreased BS at the right posterior base) Gastrointestinal: Yes: Soft. No: Tenderness, Rebound Edema: LLE: Trace, RLE: Trace Integumentary: Yes: Other (Chronic LE skin changes) Labs: CBC, BMP 06/14/16 06:00 06/16/16 06:00 INR, PTT INR 1.38 (0.82-1.09) H 06/13/16 06:00 - ....Imaging Chest X-ray: Image Reviewed Assessment/Plan Impression CKD with acute component HTN A-fib Liver mass with raised right hemidiaphragm s/p LE Cellulitis Plan Agree with bholding the lasix for now Repeat labs in am Monitor daily weights Dr Garnett
[2016-06-17 07:28] LABS: BASOPHIL 0.9 % (0-2.0); EOSINOPHIL 6.1 % (0-4.5); MCHC 33.4 g/dl (32.0-35.9); MEAN CELL VOLUME 89.8 fl (80-96); MEAN PLT VOLUME 8.1 fl (7.5-11.1); PLATELET COUNT 104 K/MM3 (134-434); RDW 17.1 % (11.9-15.9)
[2016-06-17 08:02] LABS: CALCIUM 8.6 mg/dL (8.5-10.1); CREATININE 1.7 mg/dL (0.7-1.3)
[2016-06-17] MEDS ORDERED: PT OWN MED DRAWER 7, Y5N ONE ×2 (09:26→20:17)
--- NOTE | 2016-06-17 09:40 | PN ---
Progress Note, Physician - Current Medication List Current Medications: Active Medications Amlodipine Besylate (Norvasc -) 10 mg PO DAILY [facility] Last Admin: 06/16/16 12:24 Dose: 10 mg Apixaban (Eliquis -) 5 mg PO BID [facility] Last Admin: 06/16/16 21:06 Dose: 5 mg Carvedilol (Coreg -) 25 mg PO BID [facility] Last Admin: 06/16/16 21:06 Dose: 25 mg Docusate Sodium (Colace -) 100 mg PO BID PRN PRN Reason: CONSTIPATION Last Admin: 06/10/16 09:11 Dose: 100 mg - Objective Vital Signs: Vital Signs Temperature 97.8 F 06/17/16 07:15 Pulse Rate 71 06/17/16 07:15 Respiratory Rate 18 06/17/16 07:15 Blood Pressure 147/67 06/17/16 07:15 O2 Sat by Pulse Oximetry (%) 92 L 06/17/16 02:02 Constitutional: Yes: Well Nourished, No Distress, Calm Eyes: Yes: WNL, Conjunctiva Clear HENT: Yes: WNL, Atraumatic, Normocephalic Neck: Yes: WNL, Supple, Trachea Midline Cardiovascular: Yes: WNL, Regular Rate and Rhythm Respiratory: Yes: WNL, Regular, CTA Bilaterally Gastrointestinal: Yes: WNL, Normal Bowel Sounds Musculoskeletal: Yes: WNL Extremities: Yes: WNL Edema: No Integumentary: Yes: Venous Stasis Changes Neurological: Yes: WNL, Alert, Oriented ...Motor Strength: WNL Psychiatric: Yes: WNL Labs: CBC, BMP 06/17/16 06:00 06/17/16 06:00 INR, PTT INR 1.38 (0.82-1.09) H 06/13/16 06:00 Impression/Plan Impression/Plan: 56yo M with PMH HTN admitted for B/L lower extremity cellulitis B/L LE cellulitis -clinically improved -completed 7 days of unasyn now switched to augmentin for 7 day course -wound care and vascular f/u as outpatient Acute hypercapnic hypoxic respiratory failure -moderate to large right sided pleural effusion seen on CT chest -s/p thoracentesis; pleural fluid analysis transudative in nature possibly from nephrotic syndrome given no CHF and no cirrhosis -hypercapnia improved with bipap use -repeat CXR shows no recurrence of effusion -saturation on room air has improved; follow up repeat exercise oximetry today new onset afib -rate controlled on coreg -on eliquis liver mass -will need CT with contrast and further workup. this can likely be further worked up as outpatient as pt's renal function has just started improving -AFP CEA WNL HTN -improved -cont coreg -up titrate carvedilol if needed TANA -again improving after stopping lasix -discussed with renal the need for spirinolactone as pt does not have stage 3 or 4 CHF and does not have ascities and is now stopped -cont to trend DVT ppx -on eliquis Visit type - Emergency Visit Emergency Visit: Yes ED Registration Date: 06/02/16 Care time: The patient presented to the Emergency Department on the above date and was hospitalized for further evaluation of their emergent condition. - New Patient This patient is new to me today: No - Critical Care Critical Care patient: No
[2016-06-17] MEDS: CARVEDILOL 25 MG TABLET (FP) PO SCH ×2 (10:05→21:16)
[2016-06-17] MEDS: amLODIPine BESYLATE 10 MG TABLET (FP) PO SCH (10:05)
[2016-06-17] MEDS: APIXABAN 5 MG TABLET PO SCH ×2 (10:05→21:16)
--- NOTE | 2016-06-17 13:44 | PN ---
Progress Note (short form) - Note Progress Note: PULMONARY Breathing continues to improve. No cough or wheezing. Using incentive spirometer. Last Vital Signs Temp Pulse Resp BP Pulse Ox 97.8 F 76 18 147/67 92 L 06/17/16 07:15 06/17/16 11:15 06/17/16 07:15 06/17/16 07:15 06/17/16 11:15 Gen: NAD at rest Heart: RRR Lung: right base rales Abd: soft, nontender Ext: no edema CBC, BMP 06/17/16 06:00 06/17/16 06:00 Active Medications Amlodipine Besylate (Norvasc -) 10 mg PO DAILY [facility] Last Admin: 06/17/16 10:05 Dose: 10 mg Apixaban (Eliquis -) 5 mg PO BID [facility] Last Admin: 06/17/16 10:05 Dose: 5 mg Carvedilol (Coreg -) 25 mg PO BID [facility] Last Admin: 06/17/16 10:05 Dose: 25 mg Docusate Sodium (Colace -) 100 mg PO BID PRN PRN Reason: CONSTIPATION Last Admin: 06/10/16 09:11 Dose: 100 mg A/P Pleural Effusion - Transudate LV Diastolic Dysfunction Atrial Fibrillation Pulmonary HTN Liver Mass HTN Cellulitis CKD Elevated Right Hemidiaphragm - rate controlled - continue anticoagulation - OOB to chair - incentive spirometry - will need outpt PFTs - ?restrictive disease from elevated hemidiaphragm - ambulatory SpO2 to assess for home O2
--- NOTE | 2016-06-17 15:25 | PN ---
Progress Note, Physician Chief Complaint: Pt remains comfortable and in no distress lying flat in bed Serum Cr today better Wt not available from today - Current Medication List Current Medications: Active Medications Amlodipine Besylate (Norvasc -) 10 mg PO DAILY [facility] Last Admin: 06/17/16 10:05 Dose: 10 mg Apixaban (Eliquis -) 5 mg PO BID [facility] Last Admin: 06/17/16 10:05 Dose: 5 mg Carvedilol (Coreg -) 25 mg PO BID [facility] Last Admin: 06/17/16 10:05 Dose: 25 mg Docusate Sodium (Colace -) 100 mg PO BID PRN PRN Reason: CONSTIPATION Last Admin: 06/10/16 09:11 Dose: 100 mg - Objective Vital Signs: Vital Signs Temperature 98.2 F 06/17/16 14:45 Pulse Rate 61 06/17/16 14:45 Respiratory Rate 18 06/17/16 14:45 Blood Pressure 122/69 06/17/16 14:45 O2 Sat by Pulse Oximetry (%) 92 L 06/17/16 11:15 Constitutional: Yes: No Distress Cardiovascular: Yes: S1, S2. No: Gallop Respiratory: Yes: CTA Bilaterally, Other (Decreased BS at the right posterior base) Gastrointestinal: Yes: Soft. No: Tenderness, Rebound Edema: LLE: Trace, RLE: Trace Labs: CBC, BMP 06/17/16 06:00 06/17/16 06:00 INR, PTT INR 1.38 (0.82-1.09) H 06/13/16 06:00 Assessment/Plan Impression CKD with acute component improved off lasix HTN A-fib Liver mass with raised right hemidiaphragm s/p LE Cellulitis Plan Continue to monitor off the lasix for now Repeat labs in am Monitor daily weights- discussed with nursing Dr Garnett
--- NOTE | 2016-06-17 21:55 | PN ---
Physical Exam: SUBJECTIVE: Patient seen and examined OBJECTIVE: Vital Signs Period Temp Pulse Resp BP Sys/Villarreal Pulse Ox Last 24 Hr 97.8 F-98.6 F 61-76 18-20 122-147/67-87 90-92 GENERAL: The patient is awake, alert, and fully oriented, in no acute distress. HEAD: Normal with no signs of trauma. EYES: PERRL, extraocular movements intact, sclera anicteric, conjunctiva clear. No ptosis. ENT: Ears normal, nares patent, oropharynx clear without exudates, moist mucous membranes. NECK: Trachea midline, full range of motion, supple. LUNGS: Breath sounds equal, clear to auscultation bilaterally, no wheezes, no crackles, no accessory muscle use. HEART: Regular rate and rhythm, S1, S2 without murmur, rub or gallop. ABDOMEN: Soft, nontender, nondistended, normoactive bowel sounds, no guarding, no rebound, no hepatosplenomegaly, no masses. EXTREMITIES: 2+ pulses, warm, well-perfused, no edema. NEUROLOGICAL: Cranial nerves II through XII grossly intact. Normal speech, gait not observed. PSYCH: Normal mood, normal affect. SKIN: Warm, dry, normal turgor, no rashes or lesions noted Laboratory Results - last 24 hr 06/17/16 06/17/16 06:00 06:00 WBC 6.0 RBC 3.97 L Hgb 11.9 Hct 35.7 MCV 89.8 MCHC 33.4 RDW 17.1 H Plt Count 104 L MPV 8.1 Neutrophils % 66.0 Lymphocytes % 15.8 Monocytes % 11.2 H Eosinophils % 6.1 H Basophils % 0.9 Sodium 140 Potassium 3.9 Chloride 102 Carbon Dioxide 35 H Anion Gap 3 L BUN 25 H Creatinine 1.7 H Random Glucose 90 Calcium 8.6 Active Medications Generic Name Dose Route Start Last Admin Trade Name Freq PRN Reason Stop Dose Admin Amlodipine Besylate 10 mg 06/04/16 10:06/17/16 10:05 Norvasc - PO 10 mg DAILY [facility] Administration Apixaban 5 mg 06/14/16 10:00 06/17/16 21:16 Eliquis - PO 5 mg BID [facility] Administration Carvedilol 25 mg 06/12/16 18:15 06/17/16 21:16 Coreg - PO 25 mg BID [facility] Administration Docusate Sodium 100 mg 06/05/16 14:11 06/10/16 09:11 Colace - PO 100 mg BID PRN Administration CONSTIPATION ASSESSMENT/PLAN:
[2016-06-18 08:29] LABS: CALCIUM 8.8 mg/dL (8.5-10.1); CREATININE 1.6 mg/dL (0.7-1.3)
--- NOTE | 2016-06-18 08:31 | DS ---
Physical Exam: SUBJECTIVE: Patient seen and examined at bed side. feeling much better, ok with going home. discussed case with Dr. Jenkins feels, patient has elevated hemidiaphram and possibly restrictive lung disease, and agrees for patient to be d/c with incentive spirometery and home oxygen. patient denies, CP, palpitations, N/V/D, social issue home oxygen. OBJECTIVE: Vital Signs Period Temp Pulse Resp BP Sys/Villarreal Pulse Ox Last 24 Hr 98 F-98.6 F 61-76 18-18 122-142/67-91 90-94 PHYSICAL EXAM GENERAL: The patient is awake, alert, and fully oriented, in no acute distress. sitting comfortably. ENT: Pupils equal, round and reactive to light, extraocular movements intact, sclera anicteric, conjunctiva clear. Neck supple. LUNGS: Clear to auscultation bilaterally.+ decreased breath sounds Right base, No respiratory distress or use of accessory muscles. right back incision dressing dry and intact CV: Irregular rhythm, tachycardic, S1/S2, no MRG. +JVD Cap refill < 2 sec. ABDOMEN: Soft, non-distended, non-tender. EXTREMITIES: Normal range of motion. decrease edema +1. NEUROLOGICAL: Normal speech, normal gait. CN II-XII grossly intact. PSYCH: Normal mood, normal affect. SKIN: LLE: dry healing ulcers with scab, decreased swelling and erythema BLLE, no pitting edema. LABS Laboratory Results - last 24 hr 06/17/16 06:00 Sodium 140 Potassium 3.9 Chloride 102 Carbon Dioxide 35 H Anion Gap 3 L BUN 25 H Creatinine 1.7 H Random Glucose 90 Calcium 8.6 HOSPITAL COURSE: Date of Admission:06/02/16 Date of Discharge: 06/18/16 Discharge Summary Reason For Visit: [place] AFIB,SEPSIS,CELLULITIS OF [place]O Current Active Problems Acute kidney injury (Acute) Cellulitis of both lower extremities (Acute) Elevated hemidiaphragm (Acute) Hypertension (Acute) New onset atrial fibrillation (Acute) Pleural effusion associated with hepatic disorder (Acute) Sepsis (Acute) - Instructions Referrals: Harris Diane MD [Primary Care Provider] - - Home Medications Comprehensive Discharge Medication List: Ambulatory Orders Colchicine [Colcrys] 0 mg PO ASDIR 06/02/16 - Discharge Referral Referred to [facility] No
[2016-06-18] MEDS ORDERED: PT OWN MED DRAWER 7, Y5N ONE ×2 (10:15→20:43)
[2016-06-18] MEDS: amLODIPine BESYLATE 10 MG TABLET (FP) PO SCH (10:35)
[2016-06-18] MEDS: CARVEDILOL 25 MG TABLET (FP) PO SCH ×2 (10:35→21:10)
[2016-06-18] MEDS: APIXABAN 5 MG TABLET PO SCH ×2 (10:38→21:10)
--- NOTE | 2016-06-18 11:33 | PN ---
Progress Note (short form) - Note Progress Note: PULMONARY Breathing continues to improve. No cough or wheezing. Using incentive spirometer. Last Vital Signs Temp Pulse Resp BP Pulse Ox 98.2 F 69 18 142/91 95 06/18/16 05:42 06/18/16 08:45 06/18/16 05:42 06/18/16 05:42 06/18/16 09:00 Gen: NAD at rest Heart: RRR Lung: right base rales Abd: soft, nontender Ext: no edema CBC, BMP 06/17/16 06:00 06/18/16 06:05 Active Medications Amlodipine Besylate (Norvasc -) 10 mg PO DAILY [facility] Last Admin: 06/18/16 10:35 Dose: 10 mg Apixaban (Eliquis -) 5 mg PO BID [facility] Last Admin: 06/18/16 10:38 Dose: 5 mg Carvedilol (Coreg -) 25 mg PO BID [facility] Last Admin: 06/18/16 10:35 Dose: 25 mg Docusate Sodium (Colace -) 100 mg PO BID PRN PRN Reason: CONSTIPATION Last Admin: 06/10/16 09:11 Dose: 100 mg A/P Pleural Effusion - Transudate LV Diastolic Dysfunction Atrial Fibrillation Pulmonary HTN Liver Mass HTN Cellulitis CKD Elevated Right Hemidiaphragm - rate controlled - continue anticoagulation - OOB to chair - incentive spirometry - will need outpt PFTs - ?restrictive disease from elevated hemidiaphragm - outpt f/u - d/c planning
--- NOTE | 2016-06-18 15:36 | PN ---
Teaching Attending Note Name of Resident: Dez Shah ATTENDING PHYSICIAN STATEMENT I saw and evaluated the patient. I reviewed the resident's note and discussed the case with the resident. I agree with the resident's findings and plan as documented. SUBJECTIVE: seen and evaluated at the bedside OBJECTIVE: very well-appearing, stating that he feels the best he has in weeks ASSESSMENT AND PLAN: 56yo M with PMH HTN admitted for B/L lower extremity cellulitis B/L LE cellulitis -clinically improved -completed 7 days of unasyn now switched to augmentin for 7 day course -wound care and vascular f/u as outpatient Acute hypercapnic hypoxic respiratory failure -moderate to large right sided pleural effusion seen on CT chest -s/p thoracentesis; pleural fluid analysis transudative in nature possibly from nephrotic syndrome given no CHF and no cirrhosis -hypercapnia improved with bipap use -repeat CXR shows no recurrence of effusion -saturation on room air has improved; repeat exercise oximetry shows that pt requires home oxygen for hypoxic respiratory failure with exercise new onset afib -rate controlled on coreg -CHADS score of 1 -on eliquis as per cardiology attending recs liver mass -will need CT with contrast and further workup. this can likely be further worked up as outpatient as pt's renal function has just started improving -AFP CEA WNL HTN -improved -cont carvedilol -cont amlodipine TANA -again improving after stopping lasix -discussed with renal the need for spirinolactone as pt does not have stage 3 or 4 CHF and does not have ascities and is now stopped -cont to trend DVT ppx -on eliquis Dispo -pt is medically stable for discharge however requires home oxygen but currently has no insurance; follow up with case management
--- NOTE | 2016-06-18 15:58 | PN ---
Physical Exam: SUBJECTIVE: Patient seen and examined at bed side. feeling much better, ok with going home. discussed case with Dr. Jenkins feels, patient has elevated hemidiaphram and possibly restrictive lung disease, and agrees for patient to be d/c with incentive spirometery and home oxygen. patient denies, CP, palpitations, N/V/D, social issue home oxygen. OBJECTIVE: Vital Signs Period Temp Pulse Resp BP Sys/Villarreal Pulse Ox Last 24 Hr 97.9 F-98.6 F 60-84 18-20 114-142/67-91 94-98 GENERAL: The patient is awake, alert, and fully oriented, in no acute distress. sitting comfortably. ENT: Pupils equal, round and reactive to light, extraocular movements intact, sclera anicteric, conjunctiva clear. Neck supple. LUNGS: Clear to auscultation bilaterally.+ decreased breath sounds Right base, No respiratory distress or use of accessory muscles. right back incision dressing dry and intact CV: Irregular rhythm, tachycardic, S1/S2, no MRG. +JVD Cap refill < 2 sec. ABDOMEN: Soft, non-distended, non-tender. EXTREMITIES: Normal range of motion. decrease edema +1. NEUROLOGICAL: Normal speech, normal gait. CN II-XII grossly intact. PSYCH: Normal mood, normal affect. SKIN: LLE: dry healing ulcers with scab, decreased swelling and erythema BLLE, no pitting edema. Laboratory Results - last 24 hr 06/18/16 06:05 Sodium 144 Potassium 4.5 Chloride 104 Carbon Dioxide 35 H Anion Gap 5 L BUN 25 H Creatinine 1.6 H Random Glucose 86 Calcium 8.8 Active Medications Generic Name Dose Route Start Last Admin Trade Name Freq PRN Reason Stop Dose Admin Amlodipine Besylate 10 mg 06/04/16 10:00 06/18/16 10:35 Norvasc - PO 10 mg DAILY [facility] Administration Apixaban 5 mg 06/14/16 10:00 06/18/16 10:38 Eliquis - PO 5 mg BID [facility] Administration Carvedilol 25 mg 06/12/16 18:15 06/18/16 10:35 Coreg - PO 25 mg BID [facility] Administration Docusate Sodium 100 mg 06/05/16 14:11 06/10/16 09:11 Colace - PO 100 mg BID PRN Administration CONSTIPATION ASSESSMENT/PLAN: 56 year old man admitted for failed outpatient therapy for B/L lower extremity cellulitis Acute hypercapnic hypoxic respiratory distress- OHS, STEPHAN with acute pleural effusion.(86% on RA post exercise), continues to improve -s/p thoracentesis; pleural fluid analysis transudative in nature possibly. -repeat CXR shows no recurrence of effusion -f/u pre and post oxygen saturation -will need home oxygen upon discharge; -continue incentive spirometry LE Cellulitis, super imposed on chronic venous stasis afebrile, clinically improved. -day 7/ PO Augmentin 875mg po bid, -will stop antibiotics after today. -will recommend vascular evaluation as outpatient. liver mass- incidental finding on u/s of the kidneys. 2 large masses (largest 10cm), states malignancy vs hemangioma, -will need CT or MRI with contrast however in setting of CKD makes it difficult. -AFP CEA wnl liver mass -will need CT with contrast and further workup. this can likely be further worked up as outpatient as pt's renal function has just started improving -AFP WNL New onset Afib: rate controlled on carvedilol -on eliquis (Anirudh vasc score 1, HbA1c 5.6). HTN-improved- cont coreg, norvasc -observe bp trend and continue to titrate Acute on chronic Kidney Injury: renal function is cammie and improving after again stopping lasix, -avoid NSAID and nephrotoxic agents -repeat labs in am -proteinuria, pt will need an outpt workup for CKD Thrombocytopenia, mild: -per hospitalist will monitor FEN monitor and replenish electrolyte as needed oral hydration sodium controlled diet DVT ppx - on eliquis dispo: -pt is medically stable for discharge however requires home oxygen but currently has no insurance; follow up with case management -f/u pre and post oxygen saturation Visit type - Emergency Visit Emergency Visit: Yes ED Registration Date: 06/02/16 Care time: The patient presented to the Emergency Department on the above date and was hospitalized for further evaluation of their emergent condition. - New Patient This patient is new to me today: No - Critical Care Critical Care patient: No
--- NOTE | 2016-06-18 16:06 | PN ---
Progress Note, Physician History of Present Illness: Pt seen and examined at bedside. He is awake and alert. He gets SOB with ambulation. - Current Medication List Current Medications: Active Medications Amlodipine Besylate (Norvasc -) 10 mg PO DAILY [facility] Last Admin: 06/18/16 10:35 Dose: 10 mg Apixaban (Eliquis -) 5 mg PO BID [facility] Last Admin: 06/18/16 10:38 Dose: 5 mg Carvedilol (Coreg -) 25 mg PO BID [facility] Last Admin: 06/18/16 10:35 Dose: 25 mg Docusate Sodium (Colace -) 100 mg PO BID PRN PRN Reason: CONSTIPATION Last Admin: 06/10/16 09:11 Dose: 100 mg - Objective Vital Signs: Vital Signs Temperature 97.9 F 06/18/16 13:51 Pulse Rate 60 06/18/16 13:51 Respiratory Rate 20 06/18/16 13:51 Blood Pressure 114/75 06/18/16 13:51 O2 Sat by Pulse Oximetry (%) 95 06/18/16 09:00 Constitutional: Yes: Calm Eyes: Yes: Conjunctiva Clear HENT: Yes: Atraumatic Neck: Yes: Supple Cardiovascular: Yes: S1, S2 Respiratory: Yes: CTA Bilaterally Gastrointestinal: Yes: Soft Genitourinary: Yes: WNL Musculoskeletal: Yes: WNL Edema: Yes Edema: LLE: Trace, RLE: Trace Wound/Incision: Yes: Dressing Dry and Intact Neurological: Yes: Oriented Psychiatric: Yes: Oriented Labs: CBC, BMP 06/17/16 06:00 06/18/16 06:05 INR, PTT INR 1.38 (0.82-1.09) H 06/13/16 06:00 Assessment/Plan Current Medications Generic Name Dose Route Start Last Admin Trade Name Freq PRN Reason Stop Dose Admin Amlodipine Besylate 10 mg 06/04/16 10:00 06/18/16 10:35 Norvasc - PO 10 mg DAILY ASHLEY Administration Apixaban 5 mg 06/14/16 10:00 06/18/16 10:38 Eliquis - PO 5 mg BID ASHLEY Administration Carvedilol 25 mg 06/12/16 18:15 06/18/16 10:35 Coreg - PO 25 mg BID ASHLEY Administration Docusate Sodium 100 mg 06/05/16 14:11 06/10/16 09:11 Colace - PO 100 mg BID PRN Administration CONSTIPATION Impression 1. CKD 2. HTN 3. a-fib 4. liver mass 5. cellulitis Plan - weight is 250 pounds, down from 270 on admission - may need to restart diuretics if he developed fluid overload - will need outpt follow up - cxr reviewed from Saturday - renal function is stabilizing - pulmonary input appreciated - he does have proteinuria, pt will need an outpt workup for CKD - BP is controlled - will follow Dr Desai
[2016-06-19 07:33] LABS: CALCIUM 8.3 mg/dL (8.5-10.1); CREATININE 1.5 mg/dL (0.7-1.3)
[2016-06-19] MEDS ORDERED: PT OWN MED DRAWER 7, Y5N ONE (09:13)
[2016-06-19] MEDS: APIXABAN 5 MG TABLET PO SCH ×2 (10:12→21:31)
[2016-06-19] MEDS: amLODIPine BESYLATE 10 MG TABLET (FP) PO SCH (10:12)
[2016-06-19] MEDS: CARVEDILOL 25 MG TABLET (FP) PO SCH ×2 (10:12→21:30)
--- NOTE | 2016-06-19 10:36 | PN ---
Progress Note (short form) - Note Progress Note: PULMONARY D/C planning complicated by insurance issues. Breathing continues to improve. No cough or wheezing. Using incentive spirometer. Last Vital Signs Temp Pulse Resp BP Pulse Ox 97.9 F 67 20 131/67 98 06/19/16 06:00 06/19/16 06:00 06/19/16 06:00 06/19/16 06:00 06/19/16 05:20 Gen: NAD at rest Heart: RRR Lung: right base rales Abd: soft, nontender Ext: no edema CBC, BMP 06/17/16 06:00 06/19/16 05:35 Active Medications Amlodipine Besylate (Norvasc -) 10 mg PO DAILY [facility] Last Admin: 06/19/16 10:12 Dose: 10 mg Apixaban (Eliquis -) 5 mg PO BID [facility] Last Admin: 06/19/16 10:12 Dose: 5 mg Carvedilol (Coreg -) 25 mg PO BID [facility] Last Admin: 06/19/16 10:12 Dose: 25 mg Docusate Sodium (Colace -) 100 mg PO BID PRN PRN Reason: CONSTIPATION Last Admin: 06/10/16 09:11 Dose: 100 mg A/P Pleural Effusion - Transudate LV Diastolic Dysfunction Atrial Fibrillation Pulmonary HTN Liver Mass HTN Cellulitis CKD Elevated Right Hemidiaphragm - rate controlled - continue anticoagulation - OOB to chair - incentive spirometry - will need outpt PFTs - ?restrictive disease from elevated hemidiaphragm - outpt f/u - d/c planning with home O2
--- NOTE | 2016-06-19 12:57 | PN ---
Progress Note (short form) - Note Progress Note: CC: afib s: no cp sob palps dizzy; still requiring oxygen. o: Current Medications Amlodipine Besylate (Norvasc -) 10 mg PO DAILY [facility] Last Admin: 06/19/16 10:12 Dose: 10 mg Apixaban (Eliquis -) 5 mg PO BID [facility] Last Admin: 06/19/16 10:12 Dose: 5 mg Carvedilol (Coreg -) 25 mg PO BID [facility] Last Admin: 06/19/16 10:12 Dose: 25 mg Docusate Sodium (Colace -) 100 mg PO BID PRN PRN Reason: CONSTIPATION Last Admin: 06/10/16 09:11 Dose: 100 mg Vital Signs - 24 hr 06/18/16 06/18/16 06/18/16 13:51 17:16 21:00 Temperature 97.9 F 98.6 F Pulse Rate 60 61 Respiratory 20 18 18 Rate Blood Pressure 114/75 120/68 O2 Sat by Pulse 98 Oximetry (%) 06/18/16 06/19/16 06/19/16 22:00 05:20 06:00 Temperature 98 F 97.9 F Pulse Rate 64 67 Respiratory 18 20 Rate Blood Pressure 141/75 131/67 O2 Sat by Pulse 98 Oximetry (%) Intake & Output 06/17/16 06/18/16 06/19/16 06/20/16 07:59 07:59 07:59 07:59 Intake Total 250 300 700 Output Total 400 200 Balance 250 -100 500 Weight 250 lb 12.8 oz 252 lb 4 oz Constitutional: Yes: No Distress, Obese Eyes: No: Sclera Icterus Respiratory: Yes: trace dullness/diminished air movement at bases No: Accessory Muscle Use, Rales, Wheezes Cardiovascular: Yes: Pulse Irregular JVD: tds Heart Sounds: Yes: S1, S2. No: Gallop Murmur: No: Systolic Murmur, Diastolic Murmur Extremities: No: Cold, Cyanosis Edema: trace dependent, improved. Integumentary: No: Jaundice Neurological: Yes: Alert, Oriented (x3) Psychiatric: No: Agitated CBC, BMP 06/17/16 06:00 06/19/16 05:35 ekg 06/02: afib (HR 117 bpm); nl axis/interv; no path q's; nonsp ST-T lateral leads (no old) ekg 06/05/16: afib, rate controlled, nl qtc, no ischemic changes off tele echo 05/2016: nl lv/rv, mild-mod mr, mod tr, rvsp 50-60, trivial pericardial eff CT scan: mod-large R pleural effusion with pulmonary vascular congestion. RUL infiltrate. LLL interstitial thickening. Mediastinal LAD. Subcutaneous edema. Heterogenous mass lesions in liver, possible hepatic cirrhosis. Small-mod ascites. Assessment/Plan HTN urgency: -noted to have bp up to syst 210, diast 116; -no PMD f/u, ? chronicity of hi bp in this pt -r/o renal dz contributing, incl nephrotic syndrome -carvedilol, amlodipine started here with improved bp. Aldactone started . Diuresis as mentioned below. Would benefit from outpatient sleep study evaluation. - 06/14 per renal stopped aldactone. AFib: -new dx (no prior MD f/u) -HR controlled on coreg -CHADS-VASC 1 (htn), so has indication for AC, had been on hep gtt. Now on eliquis (not ideal given BMI), but concern for compliance with INR checks on coumadin. Held in preparation for thoracentesis, now resumed. - platelets trending down, con't to monitor. per pmd. -tsh wnl Likely acute diastolic HF exacerbation - s/p IVF and weight gain here 285 to 299 lbs. Ascites/pleural effusions ( hypoxia)/subcutaneous edema likely from volume overload. Although, malignancy work up ongoing. - Received lasix 40 mg IV x 1 06/09 with good uop response. Initiated standing 40 mg IV daily in addition to aldactone. Transitioned to lasix 40 mg po daily today 06/13 and also s/p volume loss from thoracentesis. - 06/14 standing weights stable on po lasix/aldactone. Pleural effusions resolved on CXR today. Cr slightly worse. Per renal will hold aldactone, con' t lasix. - 06/15: Weight stable/mild decreased on po lasix, continue. Daily BMP, standing daily weights. Patient still with low saturation on room air, ? underlying pulmonary disease, will defer to pulmonary. renal failure, ? chronic vs acute: - h/o recent heavy nsaid use. -creat initially near 2, no baseline, has been stable here/trended down with diuresis. Renal following. LE edema, cellulitis: -abx per hospitalist Hepatic lesions/RUL infiltrate - eval/mgm't per pmd regarding risk of malignancy. S/p diagnostic/ therapeutic thoracentesis.
--- NOTE | 2016-06-19 13:44 | PN ---
Progress Note, Physician History of Present Illness: Pt seen and examined at bedside. He is awake and alert. He feels that his breathing is improved. - Current Medication List Current Medications: Active Medications Amlodipine Besylate (Norvasc -) 10 mg PO DAILY [facility] Last Admin: 06/19/16 10:12 Dose: 10 mg Apixaban (Eliquis -) 5 mg PO BID [facility] Last Admin: 06/19/16 10:12 Dose: 5 mg Carvedilol (Coreg -) 25 mg PO BID [facility] Last Admin: 06/19/16 10:12 Dose: 25 mg Docusate Sodium (Colace -) 100 mg PO BID PRN PRN Reason: CONSTIPATION Last Admin: 06/10/16 09:11 Dose: 100 mg - Objective Vital Signs: Vital Signs Temperature 97.9 F 06/19/16 06:00 Pulse Rate 67 06/19/16 06:00 Respiratory Rate 20 06/19/16 06:00 Blood Pressure 131/67 06/19/16 06:00 O2 Sat by Pulse Oximetry (%) 98 06/19/16 05:20 Constitutional: Yes: Calm Eyes: Yes: Conjunctiva Clear HENT: Yes: Atraumatic Neck: Yes: Supple Cardiovascular: Yes: S1, S2 Respiratory: Yes: CTA Bilaterally Gastrointestinal: Yes: Soft Genitourinary: Yes: WNL Musculoskeletal: Yes: Muscle Weakness Edema: Yes Edema: LLE: Trace, RLE: Trace Integumentary: Yes: Other (cellulitis) Neurological: Yes: Oriented Psychiatric: Yes: Oriented Labs: CBC, BMP 06/17/16 06:00 06/19/16 05:35 INR, PTT INR 1.38 (0.82-1.09) H 06/13/16 06:00 Assessment/Plan Current Medications Generic Name Dose Route Start Last Admin Trade Name Freq PRN Reason Stop Dose Admin Amlodipine Besylate 10 mg 06/04/16 10:00 06/19/16 10:12 Norvasc - PO 10 mg DAILY ASHLEY Administration Apixaban 5 mg 06/14/16 10:00 06/19/16 10:12 Eliquis - PO 5 mg BID ASHLEY Administration Carvedilol 25 mg 06/12/16 18:15 06/19/16 10:12 Coreg - PO 25 mg BID ASHLEY Administration Docusate Sodium 100 mg 06/05/16 14:11 06/10/16 09:11 Colace - PO 100 mg BID PRN Administration CONSTIPATION Impression 1. CKD 2. HTN 3. a-fib 4. liver mass 5. cellulitis Plan - weight is 252 pounds, down from 270 on admission. He did gain about 2 pounds - will likely need a diuretic - restart lasix - monitor lytes - cardiology input appreciated - renal function is stabilizing - he does have proteinuria, pt will need an outpt workup for CKD - BP is controlled - will follow Dr Desai
--- NOTE | 2016-06-19 14:39 | PN ---
Teaching Attending Note Name of Resident: Dez Shah ATTENDING PHYSICIAN STATEMENT I saw and evaluated the patient. I reviewed the resident's note and discussed the case with the resident. I agree with the resident's findings and plan as documented. SUBJECTIVE:currently asymptomatic. denies CP, SOB, fever, chills, cough, N/V/C/D OBJECTIVE: Last Vital Signs Temp Pulse Resp BP Pulse Ox 97.9 F 67 20 131/67 98 06/19/16 06:00 06/19/16 06:00 06/19/16 06:00 06/19/16 06:00 06/19/16 05:20 General NAD, A&Ox3 CV S1 S2 + irregular Lungs CTA B/L no wheezing/rales/rhonchi Abdomen obese NT/ND ASSESSMENT AND PLAN: 56yo M with PMH HTN presented to the ER and was admitted for further evaluation of their emergent condition 1. Acute hypercapnic hypoxic respiratory distress- OHS, STEPHAN with acute pleural effusion.s/p pleurocentesis with transudative fluid. now resolved. qualified for home O2 3L NC on exertion. will need pulmonary follow up with with repeat CT chest in 6-8weeks and polysomography. 2. B/L LE cellulitis with multiple ulcers-clinically improved. completed 14day course of abx 3. new onset afib- rate controlled on coreg. on eliquis. cardiology on board 4. liver mass- will need repeat CT as outpatient. AFP/CEA WNL. 5. HTN- improved. cont coreg, norvasc and lasix 6. TANA- likely chronic component. stable. nephrology workup as outpatient. 7. DVT ppx- on eliquis 8. medically stable for d/c home. awaiting authorization for home O2. explained need for multiple doctor follow ups. verbalized understanding and agreement with plan.
--- NOTE | 2016-06-19 15:34 | PN ---
Physical Exam: SUBJECTIVE: Patient seen and examined at bed side. feeling well. patient denies, CP, palpitations, N/V/D, social issue home oxygen and out of state ID as insurance delay. OBJECTIVE: Vital Signs Period Temp Pulse Resp BP Sys/Villarreal Pulse Ox Last 24 Hr 97.9 F-98.6 F 61-67 18-20 120-141/67-75 98-98 GENERAL: The patient is awake, alert, and fully oriented, in no acute distress. sitting comfortably. ENT: Pupils equal, round and reactive to light, extraocular movements intact, sclera anicteric, conjunctiva clear. Neck supple. LUNGS: Clear to auscultation bilaterally.+ decreased breath sounds Right base, No respiratory distress or use of accessory muscles. right back incision dressing dry and intact CV: irregular Irregular rhythm, tachycardic, S1/S2, no MRG. +JVD Cap refill < 2 sec. ABDOMEN: Soft, non-distended, non-tender. EXTREMITIES: Normal range of motion. edema +1. NEUROLOGICAL: Normal speech, normal gait. CN II-XII grossly intact. PSYCH: Normal mood, normal affect. SKIN: LLE: dry healing ulcers with scab, decreased swelling and erythema BLLE. Laboratory Results - last 24 hr 06/19/16 05:35 Sodium 143 Potassium 4.1 Chloride 107 Carbon Dioxide 31 Anion Gap 5 L BUN 27 H Creatinine 1.5 H Random Glucose 83 Calcium 8.3 L Active Medications Generic Name Dose Route Start Last Admin Trade Name Freq PRN Reason Stop Dose Admin Amlodipine Besylate 10 mg 06/04/16 10:00 06/19/16 10:12 Norvasc - PO 10 mg DAILY ASHLEY Administration Apixaban 5 mg 06/14/16 10:00 06/19/16 10:12 Eliquis - PO 5 mg BID ASHLEY Administration Carvedilol 25 mg 06/12/16 18:15 06/19/16 10:12 Coreg - PO 25 mg BID ASHLEY Administration Docusate Sodium 100 mg 06/05/16 14:11 06/10/16 09:11 Colace - PO 100 mg BID PRN Administration CONSTIPATION Furosemide 40 mg 06/20/16 10:00 Lasix - PO DAILY ASHLEY ASSESSMENT/PLAN: 56 year old man admitted for failed outpatient therapy for B/L lower extremity cellulitis Acute hypercapnic hypoxic respiratory distress- now resolved. OHS, STEPHAN with acute pleural effusion.(86% on RA post exercise), -s/p thoracentesis; pleural fluid analysis transudative in nature possibly. -repeat CXR shows no recurrence of effusion -f/u pre and post oxygen saturation -will need home oxygen upon discharge; -continue incentive spirometry LE Cellulitis, super imposed on chronic venous stasis afebrile, clinically improved. -completed 14 day antibiotics. -will stop antibiotics after today. -will recommend vascular evaluation as outpatient. liver mass- incidental finding on u/s of the kidneys. 2 large masses (largest 10cm), states malignancy vs hemangioma, -will need CT or MRI with contrast however in setting of CKD makes it difficult. -AFP CEA wnl liver mass -will need CT with contrast and further workup. this can likely be further worked up as outpatient as pt's renal function has just started improving -AFP WNL New onset Afib: rate controlled on carvedilol -on eliquis (Anirudh vasc score 1, HbA1c 5.6). HTN-improved- cont coreg, norvasc, -observe bp trend and continue to titrate Acute on chronic Kidney Injury: renal function is cammie and improving after again stopping lasix, -avoid NSAID and nephrotoxic agents -repeat labs in am -proteinuria, pt will need an outpt workup for CKD Thrombocytopenia, mild: -per hospitalist will monitor FEN monitor and replenish electrolyte as needed oral hydration sodium controlled diet DVT ppx - on eliquis dispo: -pt is medically stable for discharge however requires home oxygen but currently has no insurance; follow up with case management -f/u pre and post oxygen saturation Visit type - Emergency Visit Emergency Visit: Yes ED Registration Date: 06/02/16 Care time: The patient presented to the Emergency Department on the above date and was hospitalized for further evaluation of their emergent condition. - New Patient This patient is new to me today: No - Critical Care Critical Care patient: No
[2016-06-19] MEDS ORDERED: ACETAMINOPHEN 325 MG TABLET (FP) PO PRN (22:39)
[2016-06-20] MEDS ORDERED: PT OWN MED DRAWER 7, Y5N ONE (09:07)
[2016-06-20] MEDS: CARVEDILOL 25 MG TABLET (FP) PO SCH (09:12)
[2016-06-20] MEDS: amLODIPine BESYLATE 10 MG TABLET (FP) PO SCH (09:13)
[2016-06-20] MEDS: APIXABAN 5 MG TABLET PO SCH (09:13)
[2016-06-20] MEDS ORDERED: FUROSEMIDE 40 MG TABLET (FP) PO SCH (10:00)
--- NOTE | 2016-06-20 11:05 | PN ---
Physical Exam: SUBJECTIVE: Patient seen and examined OBJECTIVE: Vital Signs Period Temp Pulse Resp BP Sys/Villarreal Pulse Ox Last 24 Hr 97.9 F-98.6 F 62-72 18-18 127-150/71-88 95-97 GENERAL: The patient is awake, alert, and fully oriented, in no acute distress. HEAD: Normal with no signs of trauma. EYES: PERRL, extraocular movements intact, sclera anicteric, conjunctiva clear. No ptosis. ENT: Ears normal, nares patent, oropharynx clear without exudates, moist mucous membranes. NECK: Trachea midline, full range of motion, supple. LUNGS: Breath sounds equal, clear to auscultation bilaterally, no wheezes, no crackles, no accessory muscle use. HEART: Regular rate and rhythm, S1, S2 without murmur, rub or gallop. ABDOMEN: Soft, nontender, nondistended, normoactive bowel sounds, no guarding, no rebound, no hepatosplenomegaly, no masses. EXTREMITIES: 2+ pulses, warm, well-perfused, no edema. NEUROLOGICAL: Cranial nerves II through XII grossly intact. Normal speech, gait not observed. PSYCH: Normal mood, normal affect. SKIN: Warm, dry, normal turgor, no rashes or lesions noted Active Medications Generic Name Dose Route Start Last Admin Trade Name Freq PRN Reason Stop Dose Admin Acetaminophen 650 mg 06/19/16 22:39 Tylenol - PO Q4H PRN FEVER OR PAIN Amlodipine Besylate 10 mg 06/04/16 10:00 06/20/16 09:13 Norvasc - PO 10 mg DAILY ASHLEY Administration Apixaban 5 mg 06/14/16 10:00 06/20/16 09:13 Eliquis - PO 5 mg BID ASHLEY Administration Carvedilol 25 mg 06/12/16 18:15 06/20/16 09:12 Coreg - PO 25 mg BID ASHLEY Administration Docusate Sodium 100 mg 06/05/16 14:11 06/10/16 09:11 Colace - PO 100 mg BID PRN Administration CONSTIPATION Furosemide 40 mg 06/20/16 10:00 06/20/16 09:13 Lasix - PO 40 mg DAILY ASHLEY Administration ASSESSMENT/PLAN:
--- NOTE | 2016-06-20 11:07 | PN ---
Teaching Attending Note Name of Resident: Dez Shah ATTENDING PHYSICIAN STATEMENT I saw and evaluated the patient. I reviewed the resident's note and discussed the case with the resident. I agree with the resident's findings and plan as documented. SUBJECTIVE:currently asymptomatic. denies CP, SOB,fever, chills, N/V/C/D OBJECTIVE: Last Vital Signs Temp Pulse Resp BP Pulse Ox 98.2 F 72 18 127/88 97 06/20/16 08:27 06/20/16 08:27 06/20/16 08:31 06/20/16 08:27 06/20/16 08:31 General NAD, A&Ox3 CV S1 S2 + irregular Lungs CTA B/L no wheezing/rales/rhonchi Abdomen obese NT/ND ASSESSMENT AND PLAN: 56yo M with PMH HTN presented to the ER and was admitted for further evaluation of their emergent condition 1. Acute hypercapnic hypoxic respiratory distress- OHS, STEPHAN with acute pleural effusion.s/p pleurocentesis with transudative fluid. now resolved. qualified for home O2 3L NC on exertion. will need pulmonary follow up with with repeat CT chest in 6-8weeks and polysomography. 2. B/L LE cellulitis with multiple ulcers-clinically improved. completed 14day course of abx 3. new onset afib- rate controlled on coreg. on eliquis. cardiology on board 4. liver mass- will need repeat CT as outpatient. AFP/CEA WNL. 5. HTN- improved. cont coreg, norvasc and lasix 6. TANA- likely chronic component. stable. nephrology workup as outpatient. 7. DVT ppx- on eliquis 8. medically stable for d/c home. awaiting authorization for home O2. explained need for multiple doctor follow ups. verbalized understanding and agreement with plan.
--- NOTE | 2016-06-20 12:50 | PN ---
Progress Note, Physician History of Present Illness: Pt seen and examined at bedside. He feels well. - Current Medication List Current Medications: Active Medications Acetaminophen (Tylenol -) 650 mg PO Q4H PRN PRN Reason: FEVER OR PAIN Amlodipine Besylate (Norvasc -) 10 mg PO DAILY [facility] Last Admin: 06/20/16 09:13 Dose: 10 mg Apixaban (Eliquis -) 5 mg PO BID [facility] Last Admin: 06/20/16 09:13 Dose: 5 mg Carvedilol (Coreg -) 25 mg PO BID [facility] Last Admin: 06/20/16 09:12 Dose: 25 mg Docusate Sodium (Colace -) 100 mg PO BID PRN PRN Reason: CONSTIPATION Last Admin: 06/10/16 09:11 Dose: 100 mg Furosemide (Lasix -) 40 mg PO DAILY [facility] Last Admin: 06/20/16 09:13 Dose: 40 mg - Objective Vital Signs: Vital Signs Temperature 98.2 F 06/20/16 08:27 Pulse Rate 72 06/20/16 08:27 Respiratory Rate 18 06/20/16 08:31 Blood Pressure 127/88 06/20/16 08:27 O2 Sat by Pulse Oximetry (%) 97 06/20/16 08:31 Constitutional: Yes: Calm Eyes: Yes: Conjunctiva Clear HENT: Yes: Atraumatic Neck: Yes: Supple Cardiovascular: Yes: S1, S2 Respiratory: Yes: On Nasal O2 Gastrointestinal: Yes: Soft Musculoskeletal: Yes: WNL Edema: Yes Edema: LLE: Trace, RLE: Trace Integumentary: Yes: Other (cellulitis) Neurological: Yes: Oriented Psychiatric: Yes: Oriented Labs: CBC, BMP 06/17/16 06:00 06/19/16 05:35 INR, PTT INR 1.38 (0.82-1.09) H 06/13/16 06:00 Assessment/Plan Current Medications Generic Name Dose Route Start Last Admin Trade Name Freq PRN Reason Stop Dose Admin Acetaminophen 650 mg 06/19/16 22:39 Tylenol - PO Q4H PRN FEVER OR PAIN Amlodipine Besylate 10 mg 06/04/16 10:00 06/20/16 09:13 Norvasc - PO 10 mg DAILY [facility] Administration Apixaban 5 mg 06/14/16 10:00 06/20/16 09:13 Eliquis - PO 5 mg BID ASHLEY Administration Carvedilol 25 mg 06/12/16 18:15 06/20/16 09:12 Coreg - PO 25 mg BID ASHLEY Administration Docusate Sodium 100 mg 06/05/16 14:11 06/10/16 09:11 Colace - PO 100 mg BID PRN Administration CONSTIPATION Furosemide 40 mg 06/20/16 10:00 06/20/16 09:13 Lasix - PO 40 mg DAILY ASHLEY Administration Impression 1. CKD 2. HTN 3. a-fib 4. liver mass 5. cellulitis Plan - weight is 251 today from 270 on admission - cont with PO lasix - awaiting approval for home oxygen - will do full renal workup in office - BP is controlled - will follow Dr Desai
--- NOTE | 2016-06-20 14:38 | DS ---
Physical Exam: SUBJECTIVE: Patient seen and examined i walked patient for five minutes O2Sat 95% Hr 65 Ra pre exercise and 85% Hr [address] hansen agrees with home oxygen discharge. OBJECTIVE: Vital Signs Period Temp Pulse Resp BP Sys/Villarreal Pulse Ox Last 24 Hr 97.9 F-98.6 F 62-73 18-18 127-150/71-88 95-97 PHYSICAL EXAM GENERAL: The patient is awake, alert, and fully oriented, in no acute distress. sitting comfortably with family at bed side. ENT: Pupils equal, round and reactive to light, extraocular movements intact, sclera anicteric, conjunctiva clear. Neck supple. LUNGS: Clear to auscultation bilaterally.+ decreased breath sounds Right base, No respiratory distress or use of accessory muscles. right back incision dressing dry and intact CV: irregular Irregular rhythm, tachycardic, S1/S2, no MRG. +JVD Cap refill < 2 sec. ABDOMEN: Soft, non-distended, non-tender. EXTREMITIES: Normal range of motion. edema +1. NEUROLOGICAL: Normal speech, normal gait. CN II-XII grossly intact. PSYCH: Normal mood, normal affect. SKIN: LLE: dry healing ulcers with scab, decreased swelling and erythema BLLE. . LABS Active Medications Generic Name Dose Route Start Last Admin Trade Name Freq PRN Reason Stop Dose Admin Acetaminophen 650 mg 06/19/16 22:39 Tylenol - PO Q4H PRN FEVER OR PAIN Amlodipine Besylate 10 mg 06/04/16 10:00 06/20/16 09:13 Norvasc - PO 10 mg DAILY ASHLEY Administration Apixaban 5 mg 06/14/16 10:00 06/20/16 09:13 Eliquis - PO 5 mg BID ASHLEY Administration Carvedilol 25 mg 06/12/16 18:15 06/20/16 09:12 Coreg - PO 25 mg BID ASHLEY Administration Docusate Sodium 100 mg 06/05/16 14:11 06/10/16 09:11 Colace - PO 100 mg BID PRN Administration CONSTIPATION Furosemide 40 mg 06/20/16 10:00 06/20/16 09:13 Lasix - PO 40 mg DAILY ASHLEY Administration Microbiology 06/13/16 11:22 Pleural Fluid AFB Smear Concentration - Final 06/13/16 11:22 Pleural Fluid Mycobacterial Culture - Preliminary 06/13/16 11:22 Pleural Fluid Gram Stain - Final 06/13/16 11:22 Pleural Fluid Body Fluid Culture - Final NO GROWTH OF AEROBIC ORGANISMS AFTER 48 HOURS INCUBATION 06/13/16 11:22 Pleural Fluid Anaerobic Culture - Final NO ANAEROBES WERE ISOLATED 06/13/16 11:22 Pleural Fluid DONOVAN Preparation - Preliminary 06/13/16 11:22 Pleural Fluid Fungal Culture - Preliminary 06/02/16 16:05 Blood - Peripheral Venous Blood Culture - Final NO GROWTH AFTER 5 DAYS INCUBATION 06/02/16 21:41 Wound Gram Stain - Final 06/02/16 21:41 Wound Wound Culture - Final Enterococcus Faecalis Proteus Vulgaris Staphylococcus Coagulase Neg 06/02/16 14:30 Blood - Peripheral Venous Blood Culture - Final NO GROWTH AFTER 5 DAYS INCUBATION Vital Signs - 8 hr 06/20/16 06/20/16 06/20/16 08:27 08:31 13:44 Temperature 98.2 F Pulse Rate 72 73 Respiratory 18 18 Rate Blood Pressure 127/88 O2 Sat by Pulse 97 96 Oximetry (%) HOSPITAL COURSE: Date of Admission:06/02/16 Date of Discharge: 06/20/16 56 year old man admitted for failed outpatient therapy for B/L lower extremity cellulitis Acute hypercapnic hypoxic respiratory distress- now resolved. OHS, STEPHAN with acute pleural effusion.(86% on RA post exercise), -s/p thoracentesis; pleural fluid analysis transudative in nature possibly. -repeat CXR shows no recurrence of effusion - pre and post oxygen saturation -will need home oxygen upon discharge; LE Cellulitis, super imposed on chronic venous stasis afebrile, clinically improved. -completed 14 day antibiotics. liver mass-will need CT with contrast and further workup. this can likely be further worked up as outpatient as pt's renal function has just started improving New onset Afib: rate controlled on carvedilol-on eliquis (Anirudh vasc score 1, HbA1c 5.6). -pt is medically stable for discharge however requires home oxygen, approved for home oxygen. Minutes to complete discharge: 35 Discharge Summary Reason For Visit: NEW-ONSET AFIB,SEPSIS,CELLULITIS OF DAGOBERTO Current Active Problems Acute kidney injury (Acute) Elevated hemidiaphragm (Acute) Hypertension (Acute) Liver mass (Acute) New onset atrial fibrillation (Acute) Pleural effusion associated with hepatic disorder (Acute) Sepsis (Acute) Condition: Stable - Instructions Diet, Activity, Other Instructions: You are being discharged home. Please call and follow up with your primary care provider in one week to assess your health. Please call and follow up with nephrology Dr Lloyd douglas in 1 week to evaluate the proteins in your urine, blood pressure, and your kidney function. Please call and follow up with gastroenterology Dr Hartley in 1 week to evaluate Cat scan finding of a liver mass. Please call and follow up with cardiology Dr. Sebastian douglas in 2 week, to evaluate the your heart irrythemia and to assess your blood thinner. Please call and follow up with pulmonology Dr Jenkins in 1 week to evaluate your lung function, breathing and assess your oxygen. Please take your medications as prescribed. Please take over the counter Tylenol as directed for pain. Please reports to the ER or the nearest ER if you have any persistent and worsening symptoms, chest pain, palpitation, fevers, chills, night sweats, Nausea, Vomiting, severe headache dizziness or loss of consciousness. Referrals: Roberth Cortes MD [Staff Physician] - 2 Weeks Hilario Hartley MD [Staff Physician] - 1 Week Franc Desai MD [Staff Physician] - 1 Week Harris Diane MD [Primary Care Provider] - 1 Week Jose Cruz Jenkins MD, [Staff Physician] - 1 Week Disposition: HOME - Home Medications Comprehensive Discharge Medication List: Ambulatory Orders Amlodipine Besylate [Norvasc -] 10 mg PO DAILY #30 tablet 06/20/16 Apixaban [Eliquis -] 5 mg PO BID #60 tablet 06/20/16 Carvedilol [Coreg -] 25 mg PO BID #60 tablet 06/20/16 Docusate Sodium [Colace -] 100 mg PO BID PRN #60 capsule 06/20/16 Furosemide [Lasix -] 40 mg PO DAILY #60 tablet 06/20/16 This patient is new to me today: Yes Date on this admission: 11/01/16 Emergency Visit: No Critical Care patient: No - Discharge Referral Referred to [facility] No
[2016-06-20 20:37] VITALS: BP 140/98; PULSE 80; TEMP 98.2
== END 2016-06-20 20:44 | disposition home or self-care (01) | DRG 383 ==
LOC: JER 12:27 → JERBED 18:35 → J4W 23:38 → J7W 06-09 17:22
PROVIDERS: ADMIT Internal Medicine; ATTEND Internal Medicine
PROC: 0W9B3ZX Drainage of Left Pleural Cavity, Percutaneous Approach, Diagnostic (ICD-10-PCS; principal; 2016-06-13)
DX: L03.116 Cellulitis of left lower limb (principal); I48.91 Unspecified atrial fibrillation; J96.02 Acute respiratory failure with hypercapnia; J96.01 Acute respiratory failure with hypoxia; I50.31 Acute diastolic (congestive) heart failure; N17.9 Acute kidney failure, unspecified; E87.0 Hyperosmolality and hypernatremia; D68.9 Coagulation defect, unspecified; J90 Pleural effusion, not elsewhere classified; D69.6 Thrombocytopenia, unspecified; I27.2 Other secondary pulmonary hypertension; R18.8 Other ascites; I13.0 Hypertensive heart and chronic kidney disease with heart failure and stage 1 through stage 4 chronic kidney disease, or unspecified chronic kidney disease; L03.115 Cellulitis of right lower limb; L97.829 Non-pressure chronic ulcer of other part of left lower leg with unspecified severity; L97.819 Non-pressure chronic ulcer of other part of right lower leg with unspecified severity; I16.0 Hypertensive urgency; M10.9 Gout, unspecified; E66.9 Obesity, unspecified; I87.8 Other specified disorders of veins; Z68.34 Body mass index [BMI] 34.0-34.9, adult; K76.9 Liver disease, unspecified; I12.9 Hypertensive chronic kidney disease with stage 1 through stage 4 chronic kidney disease, or unspecified chronic kidney disease; N18.9 Chronic kidney disease, unspecified; E87.6 Hypokalemia
CPT/HCPCS: 36415; 36600; 71010-TC; 71020-TC; 71250-TC; 73590-TC-LT; 73590-TC-RT; 74176-TC; 76775-TC; 76942; 80048; 80053; 80061; 81003; 81015; 82042; 82105; 82150; 82378; 82438; 82570; 82803; 82945; 83036; 83605; 83615; 83721; 83735; 84075; 84100; 84157; 84311; 84443; 84450; 84460; 85025; 85027; 85610; 85730; 86704; 86705; 86706; 86707; 86803; 86850; 86900; 86901; 87040; 87070; 87075; 87102; 87116; 87186; 87205; 87206; 87210; 87340; 87350; 88108; 88305-TC; 89051; 93005; 93010; 93306-TC; 93970-TC; 94010; 94660; 94761; 97001-GP; 97116-GP; 99282-25; J1644; Q9967